=== PATIENT | female | born 1935 | race Caucasian/White ===

== ENCOUNTER 2019-07-17 05:17 | Observation (INO) | payer MEDICARE, MEDICAID, SELFPAY ==
[2019-07-17] VITALS (19 sets, daily range): BP systolic 110–170; BP diastolic 59–81; PULSE 69–111; RESP 16–23; TEMP 35.9–36.6; O2SAT 94–100; BMI 24.1
--- NOTE | ~2019-07-17 | CT_ITS ---
EXAMINATION: CT thoracic spine wo con DATE: 07/17/2019 06:52 INDICATION: Back pain TECHNIQUE: Computed tomography (CT) of the thoracic spine was performed without intravenous contrast. Automated exposure control and iterative reconstruction technique were employed. The dose-length pro duct was 360.46 mGy-cm. COMPARISON: Thoracic spine radiographs dated 12/17/[address] dated 12/14/2006 FINDINGS: Partially visualized dextroscoliosis centered at the thoracolumbar junction with severe left-sided di sc height loss and degenerative endplate remodeling at T12-L1 and L1-L2. Vertebral body heights are n ormal. No acute fractures. Lucent hemangiomas with thickened irregular oriented trabecular at T3, T7 and T9. Moderate to severe thoracic spondylosis with mild to moderate disc height loss between C7-T1 and T11-T12 and multilevel bilateral severe facet osteoarthritis. This results in mild to moderate ne ural foraminal stenosis bilaterally at multiple levels with upper thoracic predominance. Posterior di sc osteophyte at T10-T11 and T12-L1 along with hypertrophic change at the facet joints results in mil d central canal stenosis at these levels. Lesser minimal central canal stenosis at a few additional l evels in the mid to lower thoracic spine. Additional severe disc height loss at C6-C7. Moderate emphy sema. 1.4 cm nodular opacity with somewhat ill-defined spiculated margins along a band of chronic dis coid atelectasis/scarring at the lingula. A few calcified right hilar and mediastinal lymph nodes john ng with several splenic calcifications, all consistent with old granulomatous disease. No pathologica lly enlarged mediastinal or hilar lymphadenopathy appreciated. Atherosclerotic coronary artery Calcin ation cases. No pericardial or pleural effusion. Thoracic aorta is normal in caliber. 1.5 cm cyst at the upper pole of the left kidney. Chronic 1.9 x 3.0 cm low-attenuation left adrenal adenoma. IMPRESSION: 1. Moderate to severe thoracic spondylosis with severe spondylosis at the lower cervical and upper bradley mbar spine. No acute osseous abnormality. 2. Moderate emphysema with indeterminate 1.4 cm spiculated nodule in the lingula along a band of disc oid atelectasis. Differential would include pneumonia, atelectasis or malignancy. Correlate clinicall y and recommend short interval follow-up chest CT and obtaining any more recent outside cross-section al imaging. Reviewed, dictated and finalized at location A. IMPRESSION: 1. Moderate to severe thoracic spondylosis with severe spondylosis at the lower cervical and upper lumbar spine. No acute osseous abnormality. 2. Moderate emphysema with indeterminate 1.4 cm spiculated nodule in the lingul a along a band of discoid atelectasis. Differential would include pneumonia, at electasis or malignancy. Correlate clinically and recommend short interval foll ow-up chest CT and obtaining any more recent outside cross-sectional imaging.
--- NOTE | ~2019-07-17 | XR_ITS ---
EXAMINATION: XR chest 2V DATE: 07/17/2019 06:58 INDICATION: Chest pain. Difficulty breathing. TECHNIQUE: frontal and lateral views of the chest were obtained. COMPARISON: Chest radiograph dated 08/12/2018 FINDINGS: Emphysema with mild hyperexpansion of lungs, increased lucency and architectural distortion in the up per lung zones. Subtle nodular opacity left midlung zone which appears new since the most recent radi ograph concerning for pneumonia. Chronic linear discoid atelectasis/scarring in the left mid to lower lung zone. Additional linear discoid atelectasis at the medial right lung base. No pleural effusion or pneumothorax. Cardiomediastinal silhouette is within normal limits for AP technique. Thoracolumbar dextrorotoscoliosis with severe spondylosis. Moderate osteoarthritis at the bilateral shoulders. IMPRESSION: 1. New focal airspace opacity in the left midlung zone concerning for pneumonia. This has a somewhat nodular appearance on the immediately prior CT of the thoracic spine and would recommend short interv al follow-up chest CT as clinically indicated. 2. Emphysema with scattered mild linear discoid atelectasis/scarring. Reviewed, dictated and finalized at location A. IMPRESSION: 1. New focal airspace opacity in the left midlung zone concerning for pneumonia . This has a somewhat nodular appearance on the immediately prior CT of the tho racic spine and would recommend short interval follow-up chest CT as clinically indicated. 2. Emphysema with scattered mild linear discoid atelectasis/scarring.
--- NOTE | 2019-07-17 05:44 | ECG_ITS ---
Measurements Intervals [place] Rate: 74 P: 67 ME: 319 QRS: -3 QRSD: 151 T: 33 QT: 400 QTc: 445 Interpretive Statements SINUS RHYTHM WITH FIRST DEGREE AV BLOCK RIGHT BUNDLE BRANCH BLOCK BASELINE ARTIFACT- I, II, III, AVR, AVL, AVF, V1-V5 ABNORMAL ECG Electronically Signed On 07-17-2019 7:23:54 CDT by Mik Cardona D.O.
--- NOTE | 2019-07-17 06:01 | ED.BACK ---
HPI - Back Pain/Injury General Chief Complaint: Back Pain/Injury Stated Complaint: BACK PAIN Time Seen by Provider: 07/17/19 05:59 Source: patient Mode of arrival: EMS Limitations: no limitations History of Present Illness HPI Narrative: Patient is an 83-year-old female who presents for evaluation of upper back pain and chest pressure. Patient reports a one-week history of intermittent chest pressure, pain with breathing, upper back pain over the past week. Pain is currently rated at a 4. At times it occurs at rest, other times with movement. No recent falls or injury. No recent heavy lifting. No fever, she does report a dry cough. She reports generalized abdominal pain, no severe pain, no vomiting. Pt notices dyspnea with exertion only. SHe states she has felt more weak and fatigued than normal. Her stool has been brown per patient. Patient is mobile, she lives at home by herself, states she has been doing most activities alone as her home health nurses have been injured and have been unable to check on her or help her as much. She reports quite a bit of difficulty sustained in completing her ADLs. Patient follows with cardiology, sees Dr. Lancaster, has had a telemedicine appointment with him last week. She denies leg swelling, calf pain. Pt also follows with Dr. 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 Related Data Home Medications Medication Instructions Recorded Confirmed ranitidine HCl 150 mg tablet 150 mg PO BID tablet 03/24/19 07/17/19 aspirin 81 mg tablet,delayed 81 mg PO DAILY tablet 05/02/19 07/17/19 release lisinopril 10 mg tablet 5 mg PO DAILY tablet 05/02/19 07/17/19 Allergies Allergy/AdvReac Type Severity Reaction Status Date / Time atenolol Allergy Severe BLURRED Verified 07/17/19 05:33 VISION fenofibrate Allergy Severe GERNERAL Verified 07/17/19 05:33 MUSCLE PAIN methylprednisolone Allergy Severe ANXIETY Verified 07/17/19 05:33 BLURRED VISION naproxen Allergy Severe CHEST PAINS Verified 07/17/19 05:33 Quinolones Allergy Severe BLURRED Verified 07/17/19 05:33 VISION cefuroxime Allergy Mild Nausea and Verified 07/17/19 05:33 Vomiting clarithromycin Allergy Mild Nausea Verified 07/17/19 05:33 iodine Allergy Mild Nausea,WEAK Verified 07/17/19 05:33 NESS celecoxib Allergy Unknown ABD. Verified 07/17/19 05:33 PAIN/DIZZINESS/NAUSEA erythromycin base Allergy Unknown UNKNOWN Verified 07/17/19 05:33 hydrocodone Allergy Unknown CONFUSION/A Verified 07/17/19 05:33 NXIOUS NSAIDS (Non-Steroidal Allergy Unknown FEELS LIKE Verified 07/17/19 05:33 Anti-Inflamma LOSS OF LIFE oxycodone Allergy Unknown REALLY Verified 07/17/19 05:33 PUTS ME IN OUTER SPACE simvastatin Allergy Unknown CONFUSION Verified 07/17/19 05:33 FROM STATINS AZELASTINE HCL Allergy Mild BLURRED Uncoded 07/17/19 05:33 VISION FEXOFENADINE HCL Allergy Mild BLURRED Uncoded 07/17/19 05:33 VISION MEDROXYPROGESTERONE ACETATE Allergy Mild Unknown Uncoded 07/17/19 05:33 PSEUDOEPHEDRINE HCL Allergy Mild BLURRED Uncoded 07/17/19 05:33 VISION Contrast Media Allergy Unknown COULD Uncoded 07/17/19 05:33 TAST FOR 3 DAYS ; CONFUSION MOXIFLOXACIN HCL Allergy Unknown UNKNOWN Uncoded 07/17/19 05:33 Review of Systems Review of Systems: Narrative: CONSTITUTIONAL: Denies fever, chills, or sweats. EYES: Denies visual changes, redness, or discharge. ENT: Denies rhinorrhea, congestion, sore throat, or otalgia. CARDIOVASCULAR: Reports chest pressure, denies palpitations or edema RESPIRATORY: Reports dry cough, reports shortness of breath with exertion GASTROINTESTINAL: Reports generalized abdominal pain, denies flank pain, denies nausea, vomiting or diarrhea GENITOURINARY: Denies dysuria or hematuria. SKIN: Denies rash or itching. MUSCULOSKELETAL: Denies back pain, joint pain, or myalgia. NEUROLOGIC: Denies headache, numbness, re
[2019-07-17] MEDS: ACETAMINOPHEN 500 MG TABLET 1000 MG PO (06:25)
[2019-07-17 06:39] LABS: Basophils Percent Auto 0.5 % (0.2-1.2); Eosinophils Absolute Auto 0.2 K/mm3 (0-0.3); Hematocrit 25.2 % (37.0-47.0); Hemoglobin 7.6 g/dL (12.0-15.0); Immature Granulocyte Absolute 0.01 K/mm3 (0.00-0.031); Immature Granulocyte Percent A 0.3 % (0-0.5); Lymphocytes Absolute Auto 0.65 K/mm3 (0.9-3.2); Lymphocytes Percent Auto 17.2 % (18.3-44.2); Mean Corpuscular HGB Conc 30.2 g/dl (32-36); Mean Corpuscular Hemoglobin 28.4 pg (26-34); Mean Platelet Volume 9.9 fl (7.4-10.4); Monocytes Absolute Auto 0.5 K/mm3 (0.1-0.6); Monocytes Percent Auto 14.3 % (2.6-8.5); Neutrophils Absolute Auto 2.4 K/mm3 (1.3-6.7); Neutrophils Percent Auto 62.7 % (45.5-73.1); Platelet Count Result 216 k/mm3 (150-375); Red Blood Count 2.68 M/mm3 (4.2-5.4); Red Cell Distribution Width 14.7 % (11.5-14.5); White Blood Count 3.8 K/mm3 (4.5-10.0)
[2019-07-17 06:46] LABS: Prothrombin Time 12.5 Seconds (11.1-14.7)
[2019-07-17 06:47] LABS: Partial Thromboplastin Time 34.9 SECONDS (22.3-36.8)
[2019-07-17 06:50] LABS: CRP < 0.5 mg/dL (<1.0)
[2019-07-17 06:56] LABS: D Dimer 0.32 ug/mL (<0.48)
[2019-07-17 06:59] LABS: Troponin I < 0.012 ng/mL (0.000-0.034)
--- NOTE | 2019-07-17 07:22 | PC.NURSE ---
Lab called and notified of add on for CMP. State they will run.
[2019-07-17 07:31] LABS: Alanine Aminotransferase 11 U/L (4-35); Albumin Level 3.4 g/dL (3.5-5.1); Alkaline Phosphatase 43 U/L (38-126); Aspartate Amino Transferase 20 U/L (14-36); Bilirubin,Total < 0.1 mg/dL (0.2-1.3); Blood Urea Nitrogen 15 mg/dL (7-17); Calcium 8.6 mg/dL (8.4-10.2); Carbon Dioxide 28 mmol/L (22-30); Chloride 104 mmol/L (98-107); Estimated Glomerular Filt Rate > 60; Glucose 92 mg/dL (65-105); Potassium 4.1 mmol/L (3.4-5.0); Sodium 135 mmol/L (137-145)
[2019-07-17] MEDS: SODIUM CHLORIDE 0.9% IV 250 ML 30 ML IV CONT (09:55)
--- NOTE | 2019-07-17 10:23 | PC.NURSE ---
patient up to commode prior to going to room.
[2019-07-17 12:14] LABS: Troponin I < 0.012 ng/mL (0.000-0.034)
--- NOTE | 2019-07-17 12:23 | WPDGICN ---
Assessment and Plan Assessment and plan (1) Symptomatic anemia: Code(s): D64.9 - Anemia, unspecified Status: Acute Assessment and Plan: Patient appears to be symptomatic from anemia. She is reported have a decline of 2-3 g of hemoglobin since last blood count in April. Current hemoglobin is very similar to evaluation last year. One year ago GI evaluation revealed angiodysplasias of the colon. Likely this is the etiology for her recurrent anemia. Plan is for transfusion to minimize her symptomatology. Hemoglobin will be monitored. Colonoscopy will be performed in the morning after preparation today an EGD may also be required if no significant findings by colon exam. We will follow with you during this hospital stay . (2) Acute thoracic back pain: Qualifiers: Back pain laterality: bilateral Qualified Code(s): M54.6 - Pain in thoracic spine Code(s): M54.6 - Pain in thoracic spine Status: Acute (3) Hypertension: Qualifiers: Hypertension type: essential hypertension Qualified Code(s): I10 - Essential (primary) hypertension Code(s): I10 - Essential (primary) hypertension Status: Acute (4) Diastolic dysfunction: Code(s): I51.89 - Other ill-defined heart diseases Status: Acute (5) COPD (chronic obstructive pulmonary disease): Code(s): J44.9 - Chronic obstructive pulmonary disease, unspecified Status: Acute GI Consult Note Consult date/time: 07/17/19 12:23 HPI: Mercy Dobbs is a 83 year old female seen in evaluation at the request of the emergency room. Patient reports a 2 week history of malaise. Progressive weakness, and back pain. She presented emergency room was found to have a decline in her hemoglobin. Primary care office reports hemoglobin of 11 in April of this year now with a hemoglobin is 7-1/2. Patient denies any obvious signs of GI blood loss. In the recent past 2019 underwent extensive GI evaluation for anemia was found to have he angiodysplasias of the colon. She recently has been followed by Cardiology apparently for congestive heart failure. She receives diuretics. She denies any blood thinners. She also has been treated for COPD, hypothyroidism, hypertension, he has a history of a mild CVA in the past. She denies any obvious signs of GI blood loss. She denies abdominal pain. Review of Systems Review of Systems: All systems reviewed & are unremarkable except as noted in HPI and below PMFSH Past Medical History Medical History Anemia Anxiety Cataract COPD (chronic obstructive pulmonary disease) CVA (cerebral vascular accident) Diastolic dysfunction HOCM (hypertrophic obstructive cardiomyopathy) Hypertension Hypothyroidism Mild acid reflux Mitral regurgitation Osteoarthritis Osteoporosis Parathyroid disorder Tobacco abuse Surgical History Surgical History H/O dilation and curettage 2008 H/O removal of cyst Under left armpit History of knee joint replacement Left 2010 Family History Family History Sibling Family history of coronary artery disease Father Respiratory failure Mother Breast cancer Son Myositis ossificans progressiva Other Family history of arthritis Family history of cardiovascular disease Family history of chronic obstructive pulmonary disease Hypertension Social History Social History Smoking packs per day: 0.5 Smoking cigarettes per day: 10.0 Years smoked: 60 Smoking pack-years: 30.00 Smoking status: Light tobacco smoker Tobacco type: cigarettes Alcohol intake: current Drinks per week: 5 Substance use: never Substance use type: does not use Gender identity (if verbalized by the patient): Female Spiritual care concerns: No
--- NOTE | 2019-07-17 13:56 | ADMGEN ---
This patient, Mercy Dobbs, was admitted to IMU Room 213-01 @ 1040. Patient oriented to hospital policies and general routines including ID bracelet, bed and alarms, visiting hours, pain management, procedures, bathroom and other care routines, personal items, smoking policy, room service/diet, and visiting hours. PRBC infusing left hand - IV site WNL..Valuables list has been completed. Information on how to activate the Rapid Response Team has been discussed. Patient encouraged to report perceived risks to care and to ask questions if they do not understand what they are told or what they should do.
[2019-07-17 14:59] LABS: Hematocrit 28.5 % (37.0-47.0); Hemoglobin 8.7 g/dL (12.0-15.0)
[2019-07-17] MEDS: PEG (High)/E-LYTE SOLN 4,000 ML BTL 4000 ML PO (17:45)
--- NOTE | 2019-07-17 19:09 | PM.IMHP ---
H&P: HPI History of Present Illness Chief complaint: weaness,symptomatic anemia Narrative: Mercy Dobbs is a 83 year old female who lives alone at home and recently doing all ADLs by herself is she has no help she presented emergency department with a complaint tired fatigue for several days there is also chest pain however her tropes are negative and she was seen by her trench pipe layer on telemedicine last week, also complains abdominal discomfort, patient has a history of angio dysplasia was found last year during colonoscopy she is found to have anemia with low hemoglobin of 6.8 which is decreased 2-3 point from last check, patient will receive 1 unit of pack RBC and will continue to monitor H&H, patient is seen by GI and recommending colonoscopy to further evaluate which is scheduled for tomorrow, she does admit having dark stools but denies any brittany bleeding, see denies any abdominal pain nausea or vomiting fever or chills Review of Systems Review of Systems: All systems reviewed & are unremarkable except as noted in HPI and below PMFSH Past Medical History Medical History Anemia Anxiety Cataract COPD (chronic obstructive pulmonary disease) CVA (cerebral vascular accident) Diastolic dysfunction HOCM (hypertrophic obstructive cardiomyopathy) Hypertension Hypothyroidism Mild acid reflux Mitral regurgitation Osteoarthritis Osteoporosis Parathyroid disorder Tobacco abuse Surgical History Surgical History H/O dilation and curettage 2008 H/O removal of cyst Under left armpit History of knee joint replacement Left 2009 Family History Family History Sibling Family history of coronary artery disease Father Respiratory failure Mother Breast cancer Son Myositis ossificans progressiva Other Family history of arthritis Family history of cardiovascular disease Family history of chronic obstructive pulmonary disease Hypertension Social History Social History Smoking packs per day: 0.5 Smoking cigarettes per day: 10.0 Years smoked: 60 Smoking pack-years: 30.00 Smoking status: Light tobacco smoker Tobacco type: cigarettes Alcohol intake: current Drinks per week: 5 Substance use: never Substance use type: does not use Gender identity (if verbalized by the patient): Female Spiritual care concerns: No Agree to blood products: Yes Meds Home Medications and Allergies Home Medications Medication Instructions Recorded Confirmed Type ranitidine HCl 150 mg tablet 150 mg PO BID tablet 03/24/19 07/17/19 History ferrous sulfate 325 mg (65 mg 325 mg PO DAILY #30 tablet 03/28/19 07/17/19 Rx iron) tablet aspirin 81 mg tablet,delayed 81 mg PO DAILY tablet 05/02/19 07/17/19 History release lisinopril 10 mg tablet 5 mg PO DAILY tablet 05/02/19 07/17/19 History montelukast 10 mg tablet 10 mg PO DAILY #30 tablet 06/06/19 07/17/19 Rx fluticasone propionate 50 1 spray NASAL DAILY #18.2 ml 06/27/19 07/17/19 Rx mcg/actuation nasal spray,suspension cyanocobalamin (vitamin B-12) 1,000 mcg PO DAILY #90 tablet 07/04/19 07/17/19 Rx 1,000 mcg tablet Allergies Allergy/AdvReac Type Severity Reaction Status Date / Time atenolol Allergy Severe BLURRED Verified 07/17/19 05:33 VISION fenofibrate Allergy Severe GERNERAL Verified 07/17/19 05:33 MUSCLE PAIN methylprednisolone Allergy Severe ANXIETY Verified 07/17/19 05:33 BLURRED VISION naproxen Allergy Severe CHEST PAINS Verified 07/17/19 05:33 Quinolones Allergy Severe BLURRED Verified 07/17/19 05:33 VISION cefuroxime Allergy Mild Nausea and Verified 07/17/19 05:33 Vomiting clarithromycin Allergy Mild Nausea Verified 07/17/19 05:33 iodine Allergy Mild Nausea,WEAK Verified 07/17/19 05:33 NESS
[2019-07-18] VITALS (14 sets, daily range): BP systolic 97–162; BP diastolic 49–75; PULSE 67–84; RESP 16–22; TEMP 36.1–37; O2SAT 97–100
[2019-07-18 05:20] LABS: Basophils Absolute Auto 0.1 K/mm3 (0.0-0.1); Basophils Percent Auto 1.2 % (0.2-1.2); Eosinophils Absolute Auto 0.2 K/mm3 (0-0.3); Eosinophils Percent Auto 4.7 % (0-4.4); Hematocrit 30.2 % (37.0-47.0); Hemoglobin 9.1 g/dL (12.0-15.0); Immature Granulocyte Absolute 0.02 K/mm3 (0.00-0.031); Immature Granulocyte Percent A 0.5 % (0-0.5); Lymphocytes Absolute Auto 0.66 K/mm3 (0.9-3.2); Lymphocytes Percent Auto 16.4 % (18.3-44.2); Mean Corpuscular HGB Conc 30.1 g/dl (32-36); Mean Corpuscular Hemoglobin 28.6 pg (26-34); Mean Platelet Volume 10.6 fl (7.4-10.4); Monocytes Absolute Auto 0.5 K/mm3 (0.1-0.6); Monocytes Percent Auto 11.7 % (2.6-8.5); Neutrophils Absolute Auto 2.6 K/mm3 (1.3-6.7); Neutrophils Percent Auto 65.5 % (45.5-73.1); Platelet Count Result 219 k/mm3 (150-375); Red Blood Count 3.18 M/mm3 (4.2-5.4)
[2019-07-18] MEDS: LACTATED RINGERS 1,000 ML 150 ML IV CONT (07:23)
--- NOTE | 2019-07-18 07:48 | PC.NURSE ---
0730-To GI lab for procedure via stretcher accompanied by GI nurse
--- NOTE | 2019-07-18 08:49 | WPDANESEPPF ---
Anes - Initial Pre Proc Eval Procedure: Operation Date: 07/18/19 09:00 Proposed Procedures p Colonoscopy, Possible Esophagogastroduodenoscopy - [place] Ramsey MD Date/Time: 07/18/19 08:49 Surgeon: Lamberto Ramon MD Pre Op Diagnosis: weaness,symptomatic anemia Patient Data Age: 83 Gender: F Height: 5 ft 1 in Weight: 57 kg Last Vital Signs Temp 37.0 C 07/18/19 07:18 Pulse 71 07/18/19 07:18 Resp 20 07/18/19 07:18 BP 162/63 H 07/18/19 07:18 Pulse Ox 98 07/18/19 07:18 Allergies Allergy/AdvReac Type Severity Reaction Status Date / Time atenolol Allergy Severe BLURRED Verified 07/17/19 05:33 VISION fenofibrate Allergy Severe GERNERAL Verified 07/17/19 05:33 MUSCLE PAIN methylprednisolone Allergy Severe ANXIETY Verified 07/17/19 05:33 BLURRED VISION naproxen Allergy Severe CHEST PAINS Verified 07/17/19 05:33 Quinolones Allergy Severe BLURRED Verified 07/17/19 05:33 VISION cefuroxime Allergy Mild Nausea and Verified 07/17/19 05:33 Vomiting clarithromycin Allergy Mild Nausea Verified 07/17/19 05:33 iodine Allergy Mild Nausea,WEAK Verified 07/17/19 05:33 NESS celecoxib Allergy Unknown ABD. Verified 07/17/19 05:33 PAIN/DIZZINESS/NAUSEA erythromycin base Allergy Unknown UNKNOWN Verified 07/17/19 05:33 hydrocodone Allergy Unknown CONFUSION/A Verified 07/17/19 05:33 NXIOUS NSAIDS (Non-Steroidal Allergy Unknown FEELS LIKE Verified 07/17/19 05:33 Anti-Inflamma LOSS OF LIFE oxycodone Allergy Unknown REALLY Verified 07/17/19 05:33 PUTS ME IN OUTER SPACE simvastatin Allergy Unknown CONFUSION Verified 07/17/19 05:33 FROM STATINS AZELASTINE HCL Allergy Mild BLURRED Uncoded 07/17/19 05:33 VISION FEXOFENADINE HCL Allergy Mild BLURRED Uncoded 07/17/19 05:33 VISION MEDROXYPROGESTERONE ACETATE Allergy Mild Unknown Uncoded 07/17/19 05:33 PSEUDOEPHEDRINE HCL Allergy Mild BLURRED Uncoded 07/17/19 05:33 VISION Contrast Media Allergy Unknown COULD Uncoded 07/17/19 05:33 TAST FOR 3 DAYS ; CONFUSION MOXIFLOXACIN HCL Allergy Unknown UNKNOWN Uncoded 07/17/19 05:33 Home Medications Medication Instructions Recorded Confirmed Type ranitidine HCl 150 mg tablet 150 mg PO BID tablet 03/24/19 07/17/19 History ferrous sulfate 325 mg (65 mg 325 mg PO DAILY #30 tablet 03/28/19 07/17/19 Rx iron) tablet aspirin 81 mg tablet,delayed 81 mg PO DAILY tablet 05/02/19 07/17/19 History release lisinopril 10 mg tablet 5 mg PO DAILY tablet 05/02/19 07/17/19 History montelukast 10 mg tablet 10 mg PO DAILY #30 tablet 06/06/19 07/17/19 Rx fluticasone propionate 50 1 spray NASAL DAILY #18.2 ml 06/27/19 07/17/19 Rx mcg/actuation nasal spray,suspension cyanocobalamin (vitamin B-12) 1,000 mcg PO DAILY #90 tablet 07/04/19 07/17/19 Rx 1,000 mcg tablet Laboratory Tests 07/17/19 07/17/19 07/17/19 07:50 11:46 14:53 WBC RBC Hgb 8.7 g/dL L g/dL (12.0-15.0) Hct 28.5 % L % (37.0-47.0) MCV MCH MCHC RDW Plt Count MPV Immature Gran % (Auto) Neut % (Auto) Lymph % (Auto) [place] % (Auto) Eos % (Auto) Baso % (Auto) Lymph # (Auto) [place] # (Auto) Eos # (Auto) Baso # (Auto) Abs Immat Gran (auto) Absolute Neuts (auto) Absolute Nucleated RBC Nucleated RBC % Troponin I < 0.012 ng/mL ng/mL (0.000-0.034) Blood Type O Positive Antibody Screen Negative Crossmatch See Detail 07/18/19 04:35 WBC 4.0 K/mm3 L K/mm3 (4.5-10.0) RBC 3.18 M/mm3 L M/mm3 (4.2-5.4) Hgb 9.1 g/dL L g/dL (12.0-15.0) Hct 30.2 % L % (37.0-47.0) MCV 95.0 fl fl (80-100) MCH 28.6 pg
[2019-07-18] MEDS: SIMETHICONE ORAL SUSPENSION 20 MG/0.3 ML 30 ML BOTTLE 0.6 ML PO (09:46)
--- NOTE | 2019-07-19 18:35 | PM.DS ---
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 on telemedicine last week, also complains abdominal discomfort, patient has a history of angio dysplasia was found last year during colonoscopy she is found to have anemia with low hemoglobin of 6.8 which is decreased 2-3 point from last check, patient received 1 unit of pack RBC and hgb up to 9.1 repeat colonoscope by GI failed to reveal any source of blood loss and EGD was also negative (2) Diastolic dysfunction: Code(s): I51.89 - Other ill-defined heart diseases Status: Acute Assessment and Plan: Patient clinically stable he appears euvolemic Continue low-dose ANTHONY-inhibitor (3) Hypertension: Qualifiers: Hypertension type: essential hypertension Qualified Code(s): I10 - Essential (primary) hypertension Code(s): I10 - Essential (primary) hypertension Status: Acute Assessment and Plan: Will continue home regime and as above low-dose ANTHONY-inhibitor DS: Summary Hospital Course Hospital Course: 83-year-old white female with history of diastolic heart failure and hypertension admitted with weakness found to be anemic with hemoglobin 7.6. History of angiodysplasia. Repeat EGD and colonoscopy failed to reveal any bleeding sites. Was given 1 unit of packed cells and hemoglobin was 9.1 the day of discharge. Will follow with primary care and has CBC repeated within 2 weeks her other home medication will remain the same. Assessed by PT and ambulating well by the time of discharge Time Spent with Patient Time attestation: Total time spent providing and/or coordinating discharge services: 35 minutes Exam Narrative: Exam Narrative: Condition on discharge Blood pressure 136/56 pulse is 70 saturating 95% on room air afebrile Lungs clear CV regular rate rhythm Abdomen is soft nontender Extremities without edema distal pulses She is up ambulating with physical therapy and able to be discharged home DS: Data Data Completed and Pending Completed studies during hospitalization: Pending at discharge 07/18/19 10:00 Surgical [PTH] Routine Discharge Plan Discharge Attending physician on discharge: Syd Mendez Consulting providers: [place] Ramsey Discharging Clinician: Syd Mendez Patient Disposition: Home, Self-Care Activity: as tolerated Diet: regular Patient Instructions: Antibiotic Form Stand Alone Forms: General Discharge Information Follow-up/Referrals: Amish Monsivais, [Primary Care Provider] - 2 Weeks Discharge Medications: Continued ranitidine HCl [Zantac] 150 mg tablet 150 mg PO BID RF: 0 lisinopril 10 mg tablet 5 mg PO DAILY RF: 0 ferrous sulfate 325 mg (65 mg iron) tablet 325 mg PO DAILY Qty: 30 RF: 2 montelukast 10 mg tablet 10 mg PO DAILY Qty: 30 RF: 2 fluticasone propionate 50 mcg/actuation spray,suspension 1 spray NASAL DAILY Qty: 18.2 RF: 1 cyanocobalamin (vitamin B-12) [Vitamin B-12] 1,000 mcg tablet 1,000 mcg PO DAILY Qty: 90 RF: 0 Discontinued aspirin [Adult Aspirin Regimen] 81 mg tablet,delayed release (DR/EC) 81 mg PO DAILY RF: 0 Other Ambulatory Orders: Complete Blood Count with Diff (Routine) Timeframe: [id number] Location: Determined by Patient Ordered By: Syd Mendez Date of admission: 07/17/19 08:26 Primary Care Provider: Amish Monsivais Admitting Provider: Lamberto Ramon Discharge Date/Time: 07/18/19 16:26 Attending physician on admis
== END 2019-07-18 16:26 | disposition home or self-care (01) ==
LOC: ANHED 08:36 → ANHIMU 10:03
PROVIDERS: Internal Medicine Gastroenterology; Admitting Provider Family Medicine; Emergency Provider Emergency Medicine; PCP Internal Medicine; Visit Provider Internal Medicine
PROC: 0DJ08ZZ Inspection of Upper Intestinal Tract, Via Natural or Artificial Opening Endoscopic (ICD-10-PCS; CPT 43235; principal; 2019-07-18 09:00)
DX: D64.9 Anemia, unspecified (principal); D12.5 Benign neoplasm of sigmoid colon; K64.8 Other hemorrhoids; I11.0 Hypertensive heart disease with heart failure; I50.32 Chronic diastolic (congestive) heart failure; M54.6 Pain in thoracic spine; F17.210 Nicotine dependence, cigarettes, uncomplicated; J44.9 Chronic obstructive pulmonary disease, unspecified; E03.9 Hypothyroidism, unspecified; I42.1 Obstructive hypertrophic cardiomyopathy; Z79.82 Long term (current) use of aspirin; Z79.899 Other long term (current) drug therapy; Z86.73 Personal history of transient ischemic attack (TIA), and cerebral infarction without residual deficits; Z96.652 Presence of left artificial knee joint
CPT/HCPCS: 45385; 43235; 36415; 36430; 71046; 72128; 80053; 84484; 85014; 85018; 85025; 85380; 85610; 85730; 86140; 86850; 86900; 86901; 86920; 88305; 93005; 96360; 96361; 97161; 97165; 99285; A9270; G0378; J2704; J7050; J7120; P9016

== ENCOUNTER 2019-12-27 16:23 | Outpatient (CLI) | payer MEDICARE, MEDICAID, SELFPAY ==
--- NOTE | ~2019-12-27 | CT_ITS ---
EXAMINATION:CT chest wo con DATE: 12/27/2019 17:24 INDICATION: Pulmonary nodule. TECHNIQUE: Computed tomography (CT) of the chest was performed without intravenous contrast. Automate d exposure control and iterative reconstruction technique were employed. The dose-length product (DLP ) was 148.71 mGy-cm. COMPARISON: Chest CT 12/14/2006, thoracic spine CT 07/17/2019, CT abdomen and pelvis 09/15/09 FINDINGS: There is moderate emphysema. There is mild atelectasis bilaterally. A calcified right lung nodule and calcified right hilar and subcarinal lymph nodes are consistent with old granulomatous dis ease. In the left upper lobe, there is a 2.2 cm nodule, new from 12/14/2006. The nodule was only parti ally included on 07/17/2019, and it is not clear if there has been a change in size. There are a few o ther scattered nodules in the lungs measuring up to 5 mm in right lower middle lobe, some of which ar e new from 12/14/2006. No pleural effusion. The heart size is normal. There are coronary artery calcif ications. No pericardial effusion. There are changes of right hemithyroidectomy. There is a small sli ding hiatal hernia. There is a gallstone in the gallbladder. Calcifications in the spleen are consist ent with old granulomatous disease. There is dextroscoliosis and severe spondylosis of thoracolumbar spine. IMPRESSION: 1. 2.2 cm nodule in left lung upper lobe suspicious for primary bronchogenic carcinoma. Consider bron choscopy. 2. Scattered pulmonary nodules measuring up to 5 mm, some of which are new from 12/14/2006, probably b enign. 3. Moderate emphysema. Reviewed, dictated and finalized at location A. IMPRESSION: 1. 2.2 cm nodule in left lung upper lobe suspicious for primary bronchogenic ca rcinoma. Consider bronchoscopy. 2. Scattered pulmonary nodules measuring up to 5 mm, some of which are new from 12/14/2006, probably benign. 3. Moderate emphysema.
== END 2019-12-27 16:24 | disposition home or self-care (01) ==
PROVIDERS: PCP Internal Medicine; Visit Provider Internal Medicine
DX: R91.1 Solitary pulmonary nodule (principal); J44.9 Chronic obstructive pulmonary disease, unspecified
CPT/HCPCS: 71250

== ENCOUNTER 2020-01-23 07:15 | Outpatient (CLI) | payer MEDICARE, MEDICAID, SELFPAY ==
--- NOTE | ~2020-01-23 | PE_ITS ---
EXAMINATION: PET skull to mid thigh DATE: 01/23/2020 09:06 INDICATION: Solitary pulmonary nodule TECHNIQUE: Blood glucose level was 98 mg/dL. 10.827 mCi of 18-fluorodeoxyglucose (18-FDG) was adminis tered i.v. Low dose computed tomography (CT) images were acquired from the base of the brain to the p roximal thighs for attenuation correction and anatomic localization. Positron emission tomography (PE T) images were acquired in the same distribution beginning 53 minutes after injection. Images includi ng fused PET/CT images were reconstructed in axial, coronal, and sagittal planes. Automated exposure control technique was employed. The dose-length product was 428.50mGy-cm. COMPARISON: CT chest dated 12/27/[address] abdomen and pelvis dated 09/15/2009 FINDINGS: Head/neck: There is symmetric increased activity in the oral cavity, palatine tonsils, parotid glands, submandi bular glands, laryngeal muscles and ocular muscles without CT correlate, likely physiologic. Status p ost right thyroidectomy with likely benign 9 mm calcified nodule in the left thyroid. No pathological ly enlarged cervical lymphadenopathy or suspicious foci of increased FDG uptake in the visualized hea d or neck. Atherosclerotic calcification at the bilateral carotid bulbs. Chest: Moderate emphysema. 1.5 x 1.9 cm FDG avid nodule concerning for malignancy located along a band of at electasis/scarring at the junction of the left upper lobe and lingula with maximal SUV of 4.0. Couple additional linear bands of mild discoid atelectasis at the lingula and right middle lobe. No pleural effusion. Cardiomegaly. Atherosclerotic coronary artery calcification. No pericardial effusion. Aort ic valve calcification. Small region of mild increased uptake with maximal SUV of 3.2 at the left hil um which appears slightly greater than the blood pool in the aorta and hilar vessels which could repr esent a metastatic lymph node unable to be distinguished from the hilar vasculature on the noncontras t CT images. Abdomen/pelvis/proximal thighs: Physiologic renal accumulation and excretion of FDG activity in the kidneys, bladder and along portio ns of ureters. Normal degree and heterogenous pattern of increased uptake throughout the liver withou t radiologic correlate or dominant FDG avid lesion. Several calcified gallstones within the otherwise normal gallbladder. The pancreas, spleen and right adrenal gland are normal. Approximately 3 cm low- attenuation left adrenal nodule without associated FDG uptake without significant interval change sin ce the prior study consistent with an adenoma. There is moderate uptake at the distal rectum where th ere is mild circumferential wall thickening. Otherwise mild uptake scattered throughout the bowels wi thout radiologic correlate, also likely physiologic. Again seen are several small calcified uterine f ibroids. There is calcified atherosclerosis of the aorta and many of the other arteries. No other ab normal foci of increased FDG uptake or pathologically enlarged lymphadenopathy in the abdomen, pelvis or proximal thighs. Musculoskeletal: Moderate thoracolumbar dextroscoliosis with compensatory more cephalad and caudal levoscoliosis. Cristina re lumbar and lower cervical spondylosis and moderate intervening thoracic spondylosis. L5 spondyloly sis with bilateral pars intra-articular is defects and grade 1 anterolisthesis on S1. Diffuse synovia l uptake at the bilateral glenohumeral joints with severe osteoarthritis on the right and mild on the left. There is also mild left and moderate right hip osteoarthritis. Increased FDG uptake at the jaime ateral greater trochanters consistent with trochanteric bursitis. No suspicious lytic, blastic or FDG avid bone lesions. IMPRESSION: 1. Mild to moderate increased FDG uptake in a 1.5 x 1.9 cm spiculated nodule at the junction of the l eft upper lobe and lingula which is concerning for
[2020-01-23 07:46] LABS: Glucose Point of Care 98 (65-105)
== END 2020-01-23 07:16 | disposition home or self-care (01) ==
PROVIDERS: PCP Internal Medicine; Visit Provider Internal Medicine
DX: R91.1 Solitary pulmonary nodule (principal)
CPT/HCPCS: 78815; A9552

== ENCOUNTER 2020-04-12 08:53 | Outpatient (CLI) | payer MEDICARE, MEDICAID, SELFPAY ==
[2020-04-12 09:07] LABS: Basophils Absolute Auto 0.1 K/mm3 (0.0-0.1); Basophils Percent Auto 1.3 % (0.2-1.2); Eosinophils Absolute Auto 0.3 K/mm3 (0-0.3); Eosinophils Percent Auto 7.3 % (0-4.4); Hematocrit 35.4 % (37.0-47.0); Hemoglobin 10.7 g/dL (12.0-15.0); Immature Granulocyte Absolute 0.01 K/mm3 (0.00-0.031); Immature Granulocyte Percent A 0.3 % (0-0.5); Lymphocytes Absolute Auto 0.34 K/mm3 (0.9-3.2); Lymphocytes Percent Auto 8.8 % (18.3-44.2); Mean Corpuscular HGB Conc 30.2 g/dl (32-36); Mean Corpuscular Hemoglobin 27.2 pg (26-34); Mean Corpuscular Volume 90.1 fl (80-100); Mean Platelet Volume 10.3 fl (7.4-10.4); Monocytes Absolute Auto 0.5 K/mm3 (0.1-0.6); Monocytes Percent Auto 13.5 % (2.6-8.5); Neutrophils Absolute Auto 2.7 K/mm3 (1.3-6.7); Neutrophils Percent Auto 68.8 % (45.5-73.1); Platelet Count Result 232 k/mm3 (150-375); Red Blood Count 3.93 M/mm3 (4.2-5.4); Red Cell Distribution Width 13.3 % (11.5-14.5); White Blood Count 3.9 K/mm3 (4.5-10.0)
[2020-04-12 11:17] LABS: Alanine Aminotransferase 10 U/L (4-35); Alkaline Phosphatase 60 U/L (38-126); Anion Gap 4 mmol/L (8-16); Aspartate Amino Transferase 23 U/L (14-36); Bilirubin,Total 0.3 mg/dL (0.2-1.3); Blood Urea Nitrogen 20 mg/dL (7-17); Calcium 9.8 mg/dL (8.4-10.2); Carbon Dioxide 30 mmol/L (22-30); Chloride 104 mmol/L (98-107); Estimated Glomerular Filt Rate > 60; Glucose 70 mg/dL (65-105); Potassium 4.2 mmol/L (3.4-5.0); Sodium 138 mmol/L (137-145)
== END 2020-04-12 08:54 | disposition home or self-care (01) ==
LOC: ANHLAB 08:55
PROVIDERS: PCP Internal Medicine; Visit Provider Internal Medicine Hematology & Oncology
DX: C34.11 Malignant neoplasm of upper lobe, right bronchus or lung (principal)
CPT/HCPCS: 36415; 80053; 85025

== ENCOUNTER 2020-04-19 09:06 | Outpatient (CLI) | payer MEDICARE, MEDICAID, SELFPAY ==
[2020-04-19 12:33] LABS: Iron 36 ug/dL (37-170)
[2020-04-19 12:51] LABS: Percent Iron Saturation 9 % (20-50)
== END 2020-04-19 09:07 | disposition home or self-care (01) ==
LOC: ANHLAB 09:09
PROVIDERS: Family Provider Family Medicine Adolescent Medicine; PCP Internal Medicine; Visit Provider Internal Medicine Hematology & Oncology
DX: D50.9 Iron deficiency anemia, unspecified (principal); D64.9 Anemia, unspecified
CPT/HCPCS: 36415; 82607; 82728; 83540; 83550

== ENCOUNTER 2020-05-28 08:50 | Outpatient (CLI) | payer MEDICARE, MEDICAID, SELFPAY ==
--- NOTE | ~2020-05-28 | CT_ITS ---
EXAMINATION: CT diagnostic chest wo con EXAM DATE: 05/28/2020 09:16 INDICATION: C34.12 - Malignant neoplasm of upper lobe, left bronchus or lung. TECHNIQUE: Spiral CT of the chest without contrast. Axial, coronal and sagittal images were reviewe d. Coronal maximum intensity pixel images of chest reviewed. The dose-length product (DLP) for this examination was 132.43 mGy-cm. The exposure was tailored according to patient size (auto mA exposur e control), and iterative reconstruction (ASIR) was used as additional dose reduction technique. Comp arison is made to prior examination from 01/23/2020. FINDINGS: There is a 3.0 cm mass in the left upper lobe, with interval increase in size from about 2 cm on 01/23/2020. Development of some interlobular septal thickening distally, possible carcinomatos is. Interval development of new left lower lobe small region of nonconfluent airspace disease, interl obular septal thickening measuring about 2 cm. Decrease in size of right middle lobe nodule now measu ring 3 mm versus 5 on prior study. There is moderate emphysema and hyperinflation. There are no pleu ral or pericardial effusions. Tracheobronchial tree is patent. There is no mediastinal, hilar or axillary lymphadenopathy. There is no pneumothorax. Heart normal in size. There is moderate to severe coronary arterial calcification, arterial sclerosis. Upper abdomen is unremarkable. There i s moderate thoracolumbar dextroscoliosis. IMPRESSION: 1. Increase in size of left upper lobe mass, now 3 cm with some associated peripheral interlobular s eptal thickening, possible carcinomatosis. 2. New left lower lobe opacity which could be postinfectious or cancer. 3. Moderate emphysema and hyperinflation. 4. Moderate to severe coronary artery calcifications. Reviewed, dictated and finalized at location A. DER SET UP OPERATOR IMPRESSION: 1. Increase in size of left upper lobe mass, now 3 cm with some associated per ipheral interlobular septal thickening, possible carcinomatosis. 2. New left lower lobe opacity which could be postinfectious or cancer. 3. Moderate emphysema and hyperinflation. 4. Moderate to severe coronary artery calcifications.
== END 2020-05-28 08:51 | disposition home or self-care (01) ==
PROVIDERS: PCP Internal Medicine; Visit Provider Radiology Radiation Oncology
DX: C34.12 Malignant neoplasm of upper lobe, left bronchus or lung (principal); J43.9 Emphysema, unspecified; R91.8 Other nonspecific abnormal finding of lung field; I25.10 Atherosclerotic heart disease of native coronary artery without angina pectoris
CPT/HCPCS: 71250

== ENCOUNTER 2020-06-07 09:04 | Outpatient (CLI) | payer MEDICARE, MEDICAID, SELFPAY ==
[2020-06-07 09:26] LABS: Basophils Percent Auto 0.9 % (0.2-1.2); Eosinophils Absolute Auto 0.3 K/mm3 (0-0.3); Eosinophils Percent Auto 6.2 % (0-4.4); Hematocrit 31.3 % (37.0-47.0); Immature Granulocyte Absolute 0.02 K/mm3 (0.00-0.031); Immature Granulocyte Percent A 0.4 % (0-0.5); Lymphocytes Absolute Auto 0.49 K/mm3 (0.9-3.2); Lymphocytes Percent Auto 10.8 % (18.3-44.2); Mean Corpuscular HGB Conc 28.8 g/dl (32-36); Mean Corpuscular Hemoglobin 24.2 pg (26-34); Mean Corpuscular Volume 84.1 fl (80-100); Mean Platelet Volume 9.7 fl (7.4-10.4); Monocytes Absolute Auto 0.7 K/mm3 (0.1-0.6); Monocytes Percent Auto 15.8 % (2.6-8.5); Neutrophils Percent Auto 65.9 % (45.5-73.1); Platelet Count Result 224 k/mm3 (150-375); Red Blood Count 3.72 M/mm3 (4.2-5.4); White Blood Count 4.6 K/mm3 (4.5-10.0)
[2020-06-07 12:30] LABS: Iron 135 ug/dL (37-170)
[2020-06-07 12:39] LABS: Percent Iron Saturation 33 % (20-50); Potassium 4.1 mmol/L (3.4-5.0)
[2020-06-07 12:40] LABS: Alanine Aminotransferase 9 U/L (4-35); Albumin Level 3.9 g/dL (3.5-5.1); Alkaline Phosphatase 57 U/L (38-126); Anion Gap 3 mmol/L (8-16); Aspartate Amino Transferase 20 U/L (14-36); Bilirubin,Total 0.2 mg/dL (0.2-1.3); Blood Urea Nitrogen 17 mg/dL (7-17); Calcium 9.5 mg/dL (8.4-10.2); Carbon Dioxide 31 mmol/L (22-30); Chloride 104 mmol/L (98-107); Estimated Glomerular Filt Rate > 60; Glucose 92 mg/dL (65-105); Sodium 138 mmol/L (137-145)
[2020-06-07 13:06] LABS: Ferritin 9.76 ng/mL (11.1-264)
== END 2020-06-07 09:05 | disposition home or self-care (01) ==
LOC: ANHLAB 09:06
PROVIDERS: PCP Internal Medicine; Visit Provider Internal Medicine Hematology & Oncology
DX: D64.9 Anemia, unspecified (principal); D50.9 Iron deficiency anemia, unspecified; C34.11 Malignant neoplasm of upper lobe, right bronchus or lung
CPT/HCPCS: 36415; 80053; 82607; 82728; 83540; 83550; 85025

== ENCOUNTER 2020-06-19 09:20 | Outpatient (CLI) | payer MEDICARE, MEDICAID, SELFPAY ==
--- NOTE | ~2020-06-19 | CT_ITS ---
EXAMINATION: CT diagnostic chest wo con EXAM DATE: 06/19/2020 09:40 INDICATION: Malignant neoplasm right upper lobe. TECHNIQUE: Spiral CT of the chest without contrast. Axial, coronal and sagittal images were reviewe d. Coronal maximum intensity pixel images of chest reviewed. The dose-length product (DLP) for this examination was 133.38 mGy-cm. The exposure was tailored according to patient size (auto mA exposur e control), and iterative reconstruction (ASIR) was used as additional dose reduction technique. Comp arison is made to prior examination from 05/28/2020. FINDINGS: Right upper lobe masslike opacity with slight interval decrease in size, was 3.0 cm in max imal dimension earlier this month, now about 2.4 cm. Again there is interlobular septal thickening di stal to this mass, likely radiation fibrosis versus carcinomatosis. Left lower lobe small region of nonconfluent airspace disease, interlobular septal thickening measuri ng about 2 cm and is not changed. Right middle of 3 mm nodule unchanged. There is moderate upper lobe predominant emphysema and generalized hyperinflation. There are no pleural or pericardial effusions . Tracheobronchial tree is patent. There is no mediastinal, hilar or axillary lymphadenopathy. There is no pneumothorax. Mild cardiomegaly. There is moderate to severe coronary arterial calcifi cation, arterial sclerosis. There is 3 cm left adrenal adenoma. There is moderate thoracolumbar dex troscoliosis. There are no osteoblastic or osteolytic lesions identified. Right thyroid lobectomy. IMPRESSION: 1. Mild decrease in left upper lobe mass, now 2.4 cm, with some associated peripheral interlobular s eptal thickening, radiation fibrosis versus carcinomatosis. 2. Unchanged left lower lobe opacity which could be postinfectious or cancer. 3. Moderate emphysema and hyperinflation. 4. Mild cardiomegaly. Reviewed, dictated and finalized at location A. IMPRESSION: 1. Mild decrease in left upper lobe mass, now 2.4 cm, with some associated per ipheral interlobular septal thickening, radiation fibrosis versus carcinomatosi s. 2. Unchanged left lower lobe opacity which could be postinfectious or cancer. 3. Moderate emphysema and hyperinflation. 4. Mild cardiomegaly.
== END 2020-06-19 09:21 | disposition home or self-care (01) ==
PROVIDERS: PCP Internal Medicine; Visit Provider Internal Medicine Hematology & Oncology
DX: C34.91 Malignant neoplasm of unspecified part of right bronchus or lung (principal); I51.7 Cardiomegaly; J43.9 Emphysema, unspecified; R91.8 Other nonspecific abnormal finding of lung field
CPT/HCPCS: 71250

== ENCOUNTER 2020-07-30 09:50 | Outpatient (CLI) | payer MEDICARE, MEDICAID, SELFPAY ==
--- NOTE | ~2020-07-30 | CT_ITS ---
EXAMINATION: CT diagnostic chest wo con DATE: 07/30/2020 10:14 INDICATION: Lung cancer TECHNIQUE: Computed tomography (CT) of the chest was performed without intravenous contrast. The dose -length product (DLP) was 116.78 mGy-cm. Automated exposure control and iterative reconstruction tech [employer] were employed. COMPARISON: 06/19/2020 FINDINGS: There is slight interval decrease in size of the previously described left upper lobe nodul e which measures 2 cm, previously 2.4 cm. Peripheral subpleural opacities in the left upper lobe have also decreased. There is a focal airspace opacity posteromedial aspect of the left lower lobe on phuong ge [id number] which is slightly more prominent than on the comparison examination. Additional small nodules o f the lungs previously seen remain stable. There is moderate emphysema. Changes of right hemithyroide ctomy are noted. Cardiomegaly is noted. There is calcified coronary artery atherosclerosis. There are no pathologically enlarged thoracic lymph nodes. There is a stable adenoma of the left adrenal gland . There is severe thoracic spondylosis. IMPRESSION: 1. Slight decrease in size of the previously described left upper lobe nodule, consistent with primar y bronchogenic carcinoma. 2. Decreased opacities in the periphery of the left upper lobe, consistent with resolving atelectasis and/or pneumonia. 3. Moderate emphysema. 4. Focal airspace opacity of the posterior medial left lower lobe which may be infectious or inflamma tory however attention on follow-up examination is recommended. Reviewed, dictated and finalized at location A. IMPRESSION: 1. Slight decrease in size of the previously described left upper lobe nodule, consistent with primary bronchogenic carcinoma. 2. Decreased opacities in the periphery of the left upper lobe, consistent with resolving atelectasis and/or pneumonia. 3. Moderate emphysema. 4. Focal airspace opacity of the posterior medial left lower lobe which may be infectious or inflammatory however attention on follow-up examination is recomm ended.
== END 2020-07-30 09:51 | disposition home or self-care (01) ==
PROVIDERS: PCP Internal Medicine; Visit Provider Radiology Radiation Oncology
DX: C34.12 Malignant neoplasm of upper lobe, left bronchus or lung (principal); J43.9 Emphysema, unspecified; R91.8 Other nonspecific abnormal finding of lung field
CPT/HCPCS: 71250

== ENCOUNTER 2020-08-19 11:35 | Outpatient (CLI) | payer MEDICARE, MEDICAID, SELFPAY ==
[2020-08-19 11:57] LABS: Basophils Absolute Auto 0.1 K/mm3 (0.0-0.1); Basophils Percent Auto 1.4 % (0.2-1.2); Eosinophils Absolute Auto 0.3 K/mm3 (0-0.3); Eosinophils Percent Auto 7.6 % (0-4.4); Hematocrit 36.5 % (37.0-47.0); Hemoglobin 11.4 g/dL (12.0-15.0); Immature Granulocyte Absolute 0.01 K/mm3 (0.00-0.031); Immature Granulocyte Percent A 0.3 % (0-0.5); Lymphocytes Absolute Auto 0.56 K/mm3 (0.9-3.2); Lymphocytes Percent Auto 15.7 % (18.3-44.2); Mean Corpuscular HGB Conc 31.2 g/dl (32-36); Mean Corpuscular Hemoglobin 28.9 pg (26-34); Mean Corpuscular Volume 92.4 fl (80-100); Mean Platelet Volume 9.8 fl (7.4-10.4); Monocytes Absolute Auto 0.5 K/mm3 (0.1-0.6); Monocytes Percent Auto 12.6 % (2.6-8.5); Neutrophils Absolute Auto 2.2 K/mm3 (1.3-6.7); Neutrophils Percent Auto 62.4 % (45.5-73.1); Platelet Count Result 207 k/mm3 (150-375); Red Blood Count 3.95 M/mm3 (4.2-5.4); Red Cell Distribution Width 16.4 % (11.5-14.5); White Blood Count 3.6 K/mm3 (4.5-10.0)
[2020-08-19 12:44] LABS: Anion Gap 3 mmol/L (8-16); Blood Urea Nitrogen 15 mg/dL (7-17); Calcium 9.5 mg/dL (8.4-10.2); Carbon Dioxide 30 mmol/L (22-30); Chloride 105 mmol/L (98-107); Estimated Glomerular Filt Rate > 60; Glucose 95 mg/dL (65-105); Potassium 4.1 mmol/L (3.4-5.0); Sodium 138 mmol/L (137-145)
[2020-08-19 12:55] LABS: Iron 60 ug/dL (37-170)
[2020-08-19 13:09] LABS: Percent Iron Saturation 17 % (20-50)
== END 2020-08-19 11:36 | disposition home or self-care (01) ==
LOC: ANHLAB 11:39
PROVIDERS: PCP Internal Medicine; Visit Provider Internal Medicine Hematology & Oncology
DX: D64.9 Anemia, unspecified (principal)
CPT/HCPCS: 36415; 80048; 82728; 83540; 83550; 85025

== ENCOUNTER 2020-10-09 11:17 | Outpatient (CLI) | payer MEDICARE, MEDICAID, SELFPAY ==
--- NOTE | ~2020-10-09 | CT_ITS ---
EXAMINATION: CT diagnostic chest wo con EXAM DATE: 10/09/2020 11:49 INDICATION: Chronic anemia. Contrast media allergy. Left-sided lung cancer. TECHNIQUE: Spiral CT of the chest without contrast. Axial, coronal and sagittal images of the chest were reviewed. Coronal maximum intensity pixel images of chest reviewed. The dose-length product ( DLP) for this examination was 131.98 mGy-cm. The exposure was tailored according to patient size (au to mA exposure control), and iterative reconstruction (ASIR) was used as additional dose reduction te chnique. Comparison is made to prior examination from 07/30/2020. FINDINGS: Previously seen spiculated left upper lobe opacity, somewhat difficult to measure given sh ape, has increased in size, volume. Region measures 1.5 x 3.6 cm today versus 0.7 x 2.0 on prior stud y. The newly described left lower lobe superior segmental airspace disease has demonstrated improveme nt, likely inflammatory process. There is moderate emphysema. There are no pleural or pericardial ef fusions. Tracheobronchial tree is patent. There is no mediastinal, hilar or axillary lymphadenopa thy. There is no pneumothorax. There is mild cardiomegaly. There is moderate coronary arterial c alcification, arterial sclerosis. There is small sliding gastroesophageal hiatal hernia. There is a 3.2 cm left adrenal gland lesion probably adenoma 11 Hounsfield units. There is thoracic spondylosis without osteoblastic or osteolytic lesions identified. IMPRESSION: 1. Increase in size of spiculated left upper lobe opacity, cancer and treatment-related changes or s carring. 2. Moderate emphysema. 3. Small hiatal hernia. 4. Left adrenal adenoma. Reviewed, dictated and finalized at location B. IMPRESSION: 1. Increase in size of spiculated left upper lobe opacity, cancer and treatmen t-related changes or scarring. 2. Moderate emphysema. 3. Small hiatal hernia. 4. Left adrenal adenoma.
== END 2020-10-09 11:18 | disposition home or self-care (01) ==
PROVIDERS: PCP Internal Medicine; Visit Provider Internal Medicine Hematology & Oncology
DX: D64.9 Anemia, unspecified (principal); K44.9 Diaphragmatic hernia without obstruction or gangrene; D35.02 Benign neoplasm of left adrenal gland
CPT/HCPCS: 71250

== ENCOUNTER 2020-11-14 09:11 | Outpatient (CLI) | payer MEDICARE, MEDICAID, SELFPAY ==
--- NOTE | ~2020-11-14 | PE_ITS ---
EXAMINATION: PET skull to mid thigh DATE: 11/14/2020 11:35 INDICATION: Malignant neoplasm of the left upper lobe bronchus TECHNIQUE: Blood glucose level was 92 mg/dL. 8.246 mCi of 18-fluorodeoxyglucose (18-FDG) was administ ered i.v. Low dose computed tomography (CT) images were acquired from the base of the brain to the pr oximal thighs for attenuation correction and anatomic localization. Positron emission tomography (PET ) images were acquired in the same distribution beginning 56 minutes after injection. Images includin g fused PET/CT images were reconstructed in axial, coronal, and sagittal planes. Automated exposure c ontrol technique was employed. The dose-length product was 584.20mGy-cm. COMPARISON: PET/CT dated 01/23/[address] dated 10/09/2020 FINDINGS: Head/neck: There is a photopenic defect and region of decreased attenuation at the anterolateral right frontal l obe. There is symmetric increased activity in the oral cavity, laryngeal muscles and ocular muscles w ithout CT correlate, likely physiologic. Distal prominent increased uptake in the paraspinal musculat ure and craniocervical junction without radiologic correlate which is also likely physiologic. Status post right thyroidectomy with 9 mm calcified left thyroid nodule. No pathologically enlarged cervica l lymphadenopathy or suspicious foci of increased FDG uptake in the visualized head or neck. Chest: Moderate emphysema. There is an approximately 1.9 x 1.7 x 1.3 cm spiculated nodule along a horizontal band of discoid atelectasis/scarring in the left upper lobe. The nodular opacity is without signific ant interval change in size since the prior PET CT at which time it measured 2.0 x 1.7 x 1.3 cm altho ugh the band of atelectasis/scarring has gotten thicker. The nodule which previously demonstrated mil d to moderate increased FDG uptake with maximal SUV of 4.0 and demonstrates no significant FDG activi ty. Cardiomegaly. Atherosclerotic coronary artery calcification. Aortic valve calcification. No peric ardial or pleural effusion. No pathologically enlarged or FDG avid thoracic lymphadenopathy. Abdomen/pelvis/proximal thighs: Small splenic at location consistent with old granulomatous disease. Physiologic renal accumulation a nd excretion of FDG activity in the kidneys, bladder and along portions of ureters. Normal degree and heterogenous pattern of increased uptake throughout the liver without radiologic correlate or domina nt FDG avid lesion. The pancreas and right adrenal glands are normal. Calcified gallstones within the partially decompressed gallbladder. 2.7 x 1.9 cm low-attenuation left adrenal adenoma without abnorm al FDG uptake. Mild uptake scattered throughout the bowels without radiologic correlate, also likely physiologic. Calcified uterine fibroids. No other abnormal foci of increased FDG uptake or pathologic ally enlarged lymphadenopathy in the abdomen, pelvis or proximal thighs. Musculoskeletal: Moderate thoracolumbar dextroscoliosis. Severe lumbar and lower cervical spondylosis with moderate sp ondylosis of the intervening thoracic spine. L5 spondylolysis with bilateral L5 pars intra-articulari s defects and grade 1 anterolisthesis on S1. Severe right glenohumeral osteoarthritis. There is synov ial mild increased FDG uptake at the bilateral glenohumeral joints. Mild increased FDG uptake situate d between the caudal tips of the scapula and the underlying ribs consistent with scapulothoracic burs itis. No suspicious lytic, blastic or FDG avid bone lesions. IMPRESSION: 1. No change in size of a 1.9 x 1.7 x 1.3 cm spiculated nodule along a band of discoid atelectasis/sc arring in the left upper lobe which is now without evident FDG uptake consistent with treated lung ca ncer. 2. Photopenic defect with associated decreased attenuation at the anterolateral right frontal lobe. D ifferential would include sequela of prior infarc
[2020-11-14 10:02] LABS: Glucose Point of Care 92 mg/dl (65-105)
== END 2020-11-14 09:12 | disposition home or self-care (01) ==
LOC: ANHIMG 09:11
PROVIDERS: PCP Internal Medicine; Visit Provider Radiology Radiation Oncology
DX: C34.12 Malignant neoplasm of upper lobe, left bronchus or lung (principal); R91.8 Other nonspecific abnormal finding of lung field; J43.9 Emphysema, unspecified; K80.50 Calculus of bile duct without cholangitis or cholecystitis without obstruction
CPT/HCPCS: 78815; A9552

== ENCOUNTER 2020-11-18 11:06 | Outpatient (CLI) | payer MEDICARE, MEDICAID, SELFPAY ==
[2020-11-18 11:31] LABS: Basophils Percent Auto 0.8 % (0.2-1.2); Eosinophils Absolute Auto 0.3 K/mm3 (0-0.3); Eosinophils Percent Auto 5.3 % (0-4.4); Hematocrit 28.3 % (37.0-47.0); Hemoglobin 8.7 g/dL (12.0-15.0); Immature Granulocyte Absolute 0.02 K/mm3 (0.00-0.031); Immature Granulocyte Percent A 0.4 % (0-0.5); Lymphocytes Absolute Auto 0.65 K/mm3 (0.9-3.2); Lymphocytes Percent Auto 13.8 % (18.3-44.2); Mean Corpuscular HGB Conc 30.7 g/dl (32-36); Mean Corpuscular Hemoglobin 28.8 pg (26-34); Mean Corpuscular Volume 93.7 fl (80-100); Mean Platelet Volume 9.7 fl (7.4-10.4); Monocytes Absolute Auto 0.6 K/mm3 (0.1-0.6); Monocytes Percent Auto 13.3 % (2.6-8.5); Neutrophils Absolute Auto 3.1 K/mm3 (1.3-6.7); Neutrophils Percent Auto 66.4 % (45.5-73.1); Nucleated Red Blood Cells Perc 0.6 % (0.0-0.2); Platelet Count Result 229 k/mm3 (150-375); Red Blood Count 3.02 M/mm3 (4.2-5.4); Red Cell Distribution Width 14.5 % (11.5-14.5); White Blood Count 4.7 K/mm3 (4.5-10.0)
[2020-11-18 12:22] LABS: Iron 299 ug/dL (37-170)
[2020-11-18 12:34] LABS: Anion Gap 7 mmol/L (8-16); Blood Urea Nitrogen 18 mg/dL (7-17); Calcium 9.2 mg/dL (8.4-10.2); Carbon Dioxide 26 mmol/L (22-30); Chloride 103 mmol/L (98-107); Estimated Glomerular Filt Rate > 60; Glucose 94 mg/dL (65-110); Potassium 4.2 mmol/L (3.4-5.0); Sodium 136 mmol/L (137-145)
[2020-11-18 12:36] LABS: Percent Iron Saturation 85 % (20-50)
== END 2020-11-18 11:07 | disposition home or self-care (01) ==
PROVIDERS: PCP Internal Medicine; Visit Provider Internal Medicine Hematology & Oncology
DX: C34.11 Malignant neoplasm of upper lobe, right bronchus or lung (principal)
CPT/HCPCS: 36415; 80048; 82728; 83540; 83550; 85025

== ENCOUNTER 2020-12-25 02:11 | Day surgery (SDC) | payer MEDICARE, MEDICAID, SELFPAY ==
--- NOTE | ~2020-12-25 | BM_ITS ---
EXAMINATION: CCL bone marrow asp w bx diag ORDER COMPLETED DATE: 12/25/2020 13:52 INDICATION: Chronic anemia TECHNIQUE: A time-out was performed to verify the patient's name, date of , and procedure to b e performed. The procedure including the risks and benefits was discussed with the patient. Risks dis cussed included bleeding, infection, nerve injury and allergic reaction. The patient understood the r isks and agreed to proceed. The skin overlying the right posterior iliac spine was prepped and draped in usual sterile fashion. Anesthetic was administered with 1% lidocaine subcutaneously. Moderate co nscious sedation was achieved with 50 mcg fentanyl IV. An 11 gauge needle was inserted into the ilium with fluoroscopic guidance. Bone marrow was aspirated. An 8 gauge needle was then inserted into the ilium with fluoroscopic guidance. A core bone marrow biopsy was obtained. The needle was removed and the entry site was cleaned and dressed. There were no immediate complications. A total of 14 fluoros copic images were recorded. Fluoroscopy exposure time was 0.1 minutes. FINDINGS: Real-time fluoroscopy demonstrates the biopsy needle tip overlying the left posterior iliac spine. IMPRESSION: 1. Successful fluoroscopic guided bone marrow aspiration. 2. Successful fluoroscopic guided bone marrow biopsy. Reviewed, dictated and finalized at location A.
[2020-12-25 10:56] LABS: Basophils Absolute Auto 0.1 K/mm3 (0.0-0.1); Basophils Percent Auto 1.7 % (0.2-1.2); Eosinophils Absolute Auto 0.2 K/mm3 (0-0.3); Eosinophils Percent Auto 6.3 % (0-4.4); Hematocrit 33.1 % (37.0-47.0); Hemoglobin 10.2 g/dL (12.0-15.0); Immature Granulocyte Absolute 0.01 K/mm3 (0.00-0.031); Immature Granulocyte Percent A 0.3 % (0-0.5); Lymphocytes Absolute Auto 0.43 K/mm3 (0.9-3.2); Lymphocytes Percent Auto 14.2 % (18.3-44.2); Mean Corpuscular HGB Conc 30.8 g/dl (32-36); Mean Corpuscular Volume 100.6 fl (80-100); Monocytes Absolute Auto 0.4 K/mm3 (0.1-0.6); Monocytes Percent Auto 12.5 % (2.6-8.5); Platelet Count Result 192 k/mm3 (150-375); Red Blood Count 3.29 M/mm3 (4.2-5.4); Red Cell Distribution Width 13.3 % (11.5-14.5)
[2020-12-25 11:07] LABS: INR 0.9; Prothrombin Time 12.4 Seconds (11.1-14.7)
[2020-12-25 11:08] VITALS: BP 141/62; PULSE 66; RESP 15; TEMP 36.4; O2SAT 99; BMI 27.6
--- NOTE | 2020-12-25 11:57 | WPDMODSED ---
Moderate Sedation Note-Pt Data Patient Data Allergies Allergy/AdvReac Type Severity Reaction Status Date / Time atenolol Allergy Severe BLURRED Verified 12/25/20 11:17 VISION fenofibrate Allergy Severe GERNERAL Verified 12/25/20 11:17 MUSCLE PAIN methylprednisolone Allergy Severe ANXIETY Verified 12/25/20 11:17 BLURRED VISION naproxen Allergy Severe CHEST PAINS Verified 12/25/20 11:17 Quinolones Allergy Severe BLURRED Verified 12/25/20 11:17 VISION cefuroxime Allergy Mild Nausea and Verified 12/25/20 11:17 Vomiting clarithromycin Allergy Mild Nausea Verified 12/25/20 11:17 iodine Allergy Mild Nausea,WEAK Verified 12/25/20 11:17 NESS celecoxib Allergy Unknown ABD. Verified 12/25/20 11:17 PAIN/DIZZINESS/NAUSEA erythromycin base Allergy Unknown UNKNOWN Verified 12/25/20 11:17 hydrocodone Allergy Unknown CONFUSION/A Verified 12/25/20 11:17 NXIOUS NSAIDS (Non-Steroidal Allergy Unknown FEELS LIKE Verified 11/01/20 09:08 Anti-Inflamma LOSS OF LIFE oxycodone Allergy Unknown REALLY Verified 12/25/20 11:20 PUTS ME IN OUTER SPACE simvastatin Allergy Unknown CONFUSION Verified 12/25/20 11:20 FROM STATINS butorphanol Allergy Unknown Verified 12/25/20 11:22 cephalexin [From Keflex] Allergy Unknown Verified 12/25/20 11:22 doxycycline Allergy Unknown Verified 12/25/20 11:22 Macrolide Antibiotics Allergy Unknown Verified 12/25/20 11:22 risedronate sodium Allergy Unknown Verified 12/25/20 11:22 AZELASTINE HCL Allergy Mild BLURRED Uncoded 12/25/20 11:20 VISION FEXOFENADINE HCL Allergy Mild BLURRED Uncoded 12/25/20 11:20 VISION MEDROXYPROGESTERONE ACETATE Allergy Mild Unknown Uncoded 12/25/20 11:20 PSEUDOEPHEDRINE HCL Allergy Mild BLURRED Uncoded 12/25/20 11:20 VISION Contrast Media Allergy Unknown COULD Uncoded 12/25/20 11:20 TAST FOR 3 DAYS ; CONFUSION MOXIFLOXACIN HCL Allergy Unknown UNKNOWN Uncoded 12/25/20 11:20 Home Medications Medication Instructions Recorded Confirmed Type acetaminophen 500 mg tablet 500 mg PO Q6H PRN 07/31/19 12/25/20 History cholecalciferol (vitamin D3) 25 1,000 unit PO DAILY #90 cap 12/18/19 12/25/20 Rx mcg (1,000 unit) capsule ferrous sulfate 325 mg (65 mg 325 mg PO BID #180 tablet 08/13/20 12/25/20 Rx iron) tablet melatonin 1 mg tablet 1 mg PO HS tablet 08/13/20 12/25/20 History montelukast 10 mg tablet 10 mg PO DAILY #90 tablet 09/04/20 12/25/20 Rx fluticasone propionate 50 1 spray NASAL DAILY #19.8 ml 11/05/20 12/25/20 Rx mcg/actuation nasal spray,suspension cyanocobalamin (vitamin B-12) 1,000 mcg PO DAILY #90 tablet 12/13/20 12/25/20 Rx 1,000 mcg tablet triamcinolone acetonide 0.1 % 1 applic TOPICAL BID PRN #30 g 12/13/20 12/25/20 Rx topical cream diclofenac sodium 1 ea TOPICAL QID 12/25/20 12/25/20 History lisinopril 5 mg PO DAILY 12/25/20 12/25/20 History Sedation/Anesthesia: No previous sedation/anesthesia problems (including family history). [facility] Past Medical History Medical History Anemia Angiodysplasia of gastrointestinal tract Anxiety Cataract COPD (chronic obstructive pulmonary disease) CVA (cerebral vascular accident) Diastolic dysfunction HOCM (hypertrophic obstructive cardiomyopathy) Hypertension Hypothyroidism Malignant neoplasm of upper lobe, unspecified bronchus or lung Mass of left lung Mild acid reflux Mitral regurgitation Osteoarthritis Osteoporosis Parathyroid disorder Tobacco abuse Surgical History Surgical History H/O dilation and curettage 2008 H/O removal of cyst Under left armpit History of knee joint replacement Left 2009 Family History Family History Sibling Family history of coronary artery disease Father Respiratory failure Mother Breast cancer Son Myositis
[2020-12-25 12:45] VITALS: BP 140/68; PULSE 66; RESP 17; TEMP 36.5; O2SAT 99
[2020-12-25 13:00] VITALS: BP 136/65; PULSE 65; RESP 17; O2SAT 98
[2020-12-25 13:15] VITALS: BP 137/65; PULSE 69; RESP 20; O2SAT 98
--- NOTE | 2020-12-25 13:36 | SUR.PHASEII ---
Discharge education reviewed with patient and her support friend, Cherelle, via phone. Patient and Cherelle verbalize understanding of all instructions received. Dressing clean, dry, and intact at discharge with no evidence of bleeding. PIV removed intact, dressing applied. Patient escorted at [facility] via where she was picked up by her friend, Cherelle.
== END 2020-12-25 13:35 | disposition home or self-care (01) ==
PROVIDERS: Radiology Diagnostic Radiology; PCP Internal Medicine; Visit Provider Internal Medicine Hematology & Oncology
DX: C34.90 Malignant neoplasm of unspecified part of unspecified bronchus or lung (principal); C77.1 Secondary and unspecified malignant neoplasm of intrathoracic lymph nodes; D50.9 Iron deficiency anemia, unspecified; Z92.3 Personal history of irradiation; I11.9 Hypertensive heart disease without heart failure; E03.9 Hypothyroidism, unspecified; M81.0 Age-related osteoporosis without current pathological fracture; J44.9 Chronic obstructive pulmonary disease, unspecified; I42.1 Obstructive hypertrophic cardiomyopathy; F41.9 Anxiety disorder, unspecified; Z86.73 Personal history of transient ischemic attack (TIA), and cerebral infarction without residual deficits; K21.9 Gastro-esophageal reflux disease without esophagitis; Z79.51 Long term (current) use of inhaled steroids; Z87.891 Personal history of nicotine dependence
CPT/HCPCS: 36415; 38222; 85025; 85610; 88184; 88185; 88305; 88311; 88313; 88341; 88342; 88360; J1642; J2250; J3010; J7040

== ENCOUNTER 2021-01-15 14:18 | Outpatient (CLI) | payer MEDICARE, MEDICAID, SELFPAY ==
[2021-01-15 14:40] LABS: Hematocrit 26.1 % (37.0-47.0); Hemoglobin 7.9 g/dL (12.0-15.0); Mean Corpuscular HGB Conc 30.3 g/dl (32-36); Mean Corpuscular Hemoglobin 30.3 pg (26-34); Mean Platelet Volume 9.8 fl (7.4-10.4); Platelet Count Result 230 k/mm3 (150-375); Red Blood Count 2.61 M/mm3 (4.2-5.4); White Blood Count 5.8 K/mm3 (4.5-10.0)
[2021-01-15 14:52] LABS: Blood Urea Nitrogen 29 mg/dL (8-26); Carbon Dioxide 25 mmol/L (22-30); Chloride 102 mmol/L (98-109); Estimated Glomerular Filt Rate > 60; Glucose 95 mg/dL (70-105); Sodium 138 mmol/L (138-146)
[2021-01-15 16:42] LABS: Iron 57 ug/dL (37-170)
[2021-01-15 16:51] LABS: Percent Iron Saturation 15 % (20-50)
== END 2021-01-15 14:19 | disposition home or self-care (01) ==
LOC: ANHLAB 14:22
PROVIDERS: PCP Internal Medicine; Visit Provider Internal Medicine Hematology & Oncology
DX: C34.11 Malignant neoplasm of upper lobe, right bronchus or lung (principal); D64.9 Anemia, unspecified
CPT/HCPCS: 36415; 80048; 82728; 83540; 83550; 85027

== ENCOUNTER 2021-03-19 08:20 | Outpatient (CLI) | payer MEDICARE, MEDICAID, SELFPAY ==
--- NOTE | ~2021-03-19 | CT_ITS ---
EXAMINATION: CT diagnostic chest wo con DATE: 03/19/2021 09:02 INDICATION: Malignant neoplasm of left upper lobe TECHNIQUE: Computed tomography (CT) of the chest was performed without intravenous contrast. Automate d exposure control and iterative reconstruction technique were employed. Exam dose: 190.82 mGy-cm to benjy exam DLP. COMPARISON: 10/09/2020 CT chest 11/14/2020 PET/CT scan FINDINGS: Previously reported approximately 1.5 x 3.6 cm left upper lobe mass on 10/09/2020 currently measures approximately 7.5 x 1.5 cm approximate maximal dimension, with diminished prominence of surr ounding infiltrate and discoid stranding since 10/09/2020. In similar axial plane there is patchy infiltrate primarily in the periphery of the superior segment of the left lower lobe and lingula; differential diagnosis includes possible post-radiation change or pneumonia. Emphysematous changes are again noted. Cardiomegaly and coronary artery calcifications. Small sliding hiatal hernia. Approximately 1.9 x 2.8 cm low attenuation left adrenal mass, likely an adenoma. Prominent degenerative disc disease in lower cervical spine. Degenerative changes of the thoracic sp ine and particularly lumbar spine. Right glenohumeral osteoarthritis. IMPRESSION: Interval decreased size of left upper lobe mass since 10/09/2020 Patchy lingular and superior segment left lower lobe infiltrates, possibly post-radiation change vers us pneumonia COPD Reviewed, dictated and finalized at [facility]. Reviewed, dictated and finalized at location B. NTIFIC ILLUSTRATOR IMPRESSION: Interval decreased size of left upper lobe mass since 10/09/2020 Patchy lingular and superior segment left lower lobe infiltrates, possibly post -radiation change versus pneumonia COPD
== END 2021-03-19 08:21 | disposition home or self-care (01) ==
LOC: ANHIMG 08:25
PROVIDERS: PCP Internal Medicine; Visit Provider Internal Medicine Hematology & Oncology
DX: C34.11 Malignant neoplasm of upper lobe, right bronchus or lung (principal); J44.9 Chronic obstructive pulmonary disease, unspecified
CPT/HCPCS: 71250

== ENCOUNTER 2021-06-02 10:22 | Outpatient (CLI) | payer MEDICARE, MEDICAID, SELFPAY ==
--- NOTE | ~2021-06-02 | CT_ITS ---
EXAMINATION: CT diagnostic chest wo con DATE: 06/02/2021 10:41 INDICATION: Malignant neoplasm of the lung TECHNIQUE: Computed tomography (CT) of the chest was performed without intravenous contrast. The dose -length product (DLP) was 121.28 mGy-cm. Automated exposure control and iterative reconstruction tech nique were employed. COMPARISON: 03/19/2021, 10/09/2020, 05/28/2020 FINDINGS: There is moderate emphysema. Airspace opacities of the left midlung zone and perihilar michael on persist without significant change. No new nodule or mass is identified. There is a 5 mm nodule of the right middle lobe on image 70 with slight increase in size when compared to prior examinations. There is mild dependent atelectasis of the lungs. There is no pleural effusion or pneumothorax. Eller es of right thyroidectomy are noted. There are no pathologically enlarged thoracic lymph nodes. Cardi omegaly is noted. There is calcified coronary artery atherosclerosis. There is stable adenoma of the left adrenal gland. There is severe thoracic spondylosis. IMPRESSION: 1. Stable airspace opacities of the left midlung zone and perihilar region, consistent with treated m alignancy. 2. 5 mm right middle lobe nodule with slight increase in size concerning for malignancy, primary vers us metastatic. Recommend CT-guided biopsy or continued short-term interval follow-up CT. Reviewed, dictated and finalized at location B. ET RESEARCH COORDINATOR IMPRESSION: 1. Stable airspace opacities of the left midlung zone and perihilar region, con sistent with treated malignancy. 2. 5 mm right middle lobe nodule with slight increase in size concerning for ma lignancy, primary versus metastatic. Recommend CT-guided biopsy or continued sh ort-term interval follow-up CT.
== END 2021-06-02 10:23 | disposition home or self-care (01) ==
LOC: ANHIMG 10:26
PROVIDERS: PCP Internal Medicine; Visit Provider Internal Medicine Hematology & Oncology
DX: C34.11 Malignant neoplasm of upper lobe, right bronchus or lung (principal)
CPT/HCPCS: 71250

== ENCOUNTER 2021-07-21 12:13 | Outpatient (CLI) | payer MEDICARE, MEDICAID, SELFPAY ==
--- NOTE | ~2021-07-21 | XR_ITS ---
XR shoulder RT min 2V DATE: 07/21/2021 12:40 INDICATION: Right shoulder pain while reaching TECHNIQUE: 4 views COMPARISON: None FINDINGS: There is diffuse osteopenia. There is severe osteoarthritis at the glenohumeral joint. There is degenerative change at the acromio clavicular joint. No fracture or dislocation, periosteal reaction or bone destruction is detected. Surgical clips overlie the right thyroid area. IMPRESSION: Severe right glenohumeral arthritis Degenerative change at right acromion clavicular joint Osteopenia Reviewed, dictated and finalized at location A.
== END 2021-07-21 12:14 | disposition home or self-care (01) ==
LOC: ANHIMG 12:22
PROVIDERS: PCP Internal Medicine; Visit Provider Clinical Nurse Specialist
DX: M85.811 Other specified disorders of bone density and structure, right shoulder (principal); M19.011 Primary osteoarthritis, right shoulder
CPT/HCPCS: 73030

== ENCOUNTER 2021-09-03 14:17 | Outpatient (CLI) | payer MEDICARE, MEDICAID, SELFPAY ==
--- NOTE | ~2021-09-03 | CT_ITS ---
EXAMINATION: CT diagnostic chest wo con DATE: 09/03/2021 14:47 INDICATION: Malignant neoplasm of lung TECHNIQUE: Computed tomography (CT) of the chest was performed without intravenous contrast. Automate d exposure control and iterative reconstruction technique were employed. Exam dose: 129.75 mGy-cm to benjy exam DLP. COMPARISON: 03/19/2021 and 06/02/2021 CTA chest examinations FINDINGS: Prominent emphysematous changes are noted throughout both lungs, more prominent in the uppe r lobes. There is mild chronic discoid scarring in the lower lobes. There is interval increased patchy infiltrate in the superior segment of the left lower lobe, which m ay be due to postoperative radiation pneumonitis, pneumonia or recurrent malignancy. Chronic relatively stable left upper lobe/lingular infiltrate, scarring and/or atelectasis since 09/2021. Stable approximately 5 mm middle lobe nodule. Cardiomegaly. Aortic valve calcification. Prominent coronary artery calcifications. No pericardial ef fusion. There is extensive thoracic aortic calcification as well as great vessel calcifications. Chronic left adrenal adenoma. Osteopenia. Prominent degenerative change and scoliosis of the spine. IMPRESSION: Increased patchy infiltrate in the superior segment left lower lobe which may be due to pneumonia, postoperative radiation change and/or recurrent malignancy Chronic left upper lobe infiltrate, atelectasis and/or scarring, relatively stable since 06/02/2021 Reviewed, dictated and finalized at [facility]. Reviewed, dictated and finalized at location A. IMPRESSION: Increased patchy infiltrate in the superior segment left lower lob e which may be due to pneumonia, postoperative radiation change and/or recurren t malignancy Chronic left upper lobe infiltrate, atelectasis and/or scarring, relatively sta ble since 06/02/2021
== END 2021-09-03 14:18 | disposition home or self-care (01) ==
PROVIDERS: PCP Internal Medicine; Visit Provider Internal Medicine Hematology & Oncology
DX: C34.11 Malignant neoplasm of upper lobe, right bronchus or lung (principal)
CPT/HCPCS: 71250

== ENCOUNTER 2021-10-01 10:28 | Inpatient (IN) | payer MEDICARE, MEDICAID, SELFPAY ==
[2021-10-01] VITALS (10 sets, daily range): BP systolic 125–185; BP diastolic 33–88; PULSE 61–105; RESP 14–19; TEMP 36.2–36.5; O2SAT 93–100
--- NOTE | ~2021-10-01 | XR_ITS ---
XR chest 1V portable DATE: 10/06/2021 15:04 INDICATION: Hypoxia TECHNIQUE: Portable upright AP chest on 10/06/2021 at 1449 hours COMPARISON: 10/05/2021 portable AP chest at 0550 hours 10/01/2021 2 view chest 09/03/2021 CT chest FINDINGS: There is mild interval improvement o fin filtrate in the left mid to upper lung since 022. Cardiomegaly. Aortic calcification and tortuosity. Diffuse osteopenia. Bilateral right greater than left glenohumeral osteoarthritis. Surgical clips overlie the lower right cervical area. IMPRESSION: Mild interval improvement of the mid to upper left lung infiltrate since 10/01/2021 Reviewed, dictated and finalized at location A.
--- NOTE | ~2021-10-01 | XR_ITS ---
XR hip LT min 3V w AP pelvis 10/01/2021 11:31 Indication: Status post fall with left hip pain Procedure: 3 views left hip Comparison: 07/28/2010 Findings: There is a mildly displaced left femoral intertrochanteric fracture. Pelvic rings are intac t. There is osteoarthritis of the hips. Advanced lower lumbar spondylosis with scoliosis. There are c alcifications overlying the right kidney, likely gallstones. Impression: 1: Mildly displaced left femoral intertrochanteric fracture. Reviewed, dictated and finalized at location A. Impression: 1: Mildly displaced left femoral intertrochanteric fracture.
--- NOTE | ~2021-10-01 | XR_ITS ---
EXAMINATION: XR chest 1V portable INDICATION: Shortness of breath, COVID 19 TECHNIQUE: Portable AP chest at 0615 hours COMPARISON: 10/01/2021 FINDINGS: Chronic left perihilar and upper lobe opacities persist without significant change. No pleu ral effusion or pneumothorax. The cardiomediastinal silhouette is normal. Surgical clips are noted in the right neck. IMPRESSION: 1. Chronic left perihilar and upper lobe airspace opacities, consistent with scarring and treated mal ignancy. Reviewed, dictated and finalized at location B. IMPRESSION: 1. Chronic left perihilar and upper lobe airspace opacities, consistent with sc arring and treated malignancy.
--- NOTE | ~2021-10-01 | XR_ITS ---
EXAMINATION: XR chest 2V DATE: 10/01/2021 11:31 INDICATION: Chest pain TECHNIQUE: Frontal and lateral views of the chest are obtained COMPARISON: CT, 09/03/2021 FINDINGS: There are chronic left perihilar and upper lobe opacities without significant change since the recent chest CT. No pleural effusion or pneumothorax. Cardiomegaly is noted. There is thoracolumb ar levoscoliosis with moderate lumbar spondylosis. IMPRESSION: 1. Left perihilar and upper lobe airspace opacities, consistent with scarring and treated malignancy. Reviewed, dictated and finalized at location B. IMPRESSION: 1. Left perihilar and upper lobe airspace opacities, consistent with scarring a nd treated malignancy.
--- NOTE | ~2021-10-01 | XR_ITS ---
XR elbow RT min 3V DATE: 10/01/2021 11:31 INDICATION: Fall. Skin tear. TECHNIQUE: 4 views COMPARISON: None FINDINGS: No fracture or dislocation or joint effusion. Small dorsal olecranon process spur. Osteopenia. IMPRESSION: No fracture or dislocation Reviewed, dictated and finalized at location A. IMPRESSION: No fracture or dislocation
--- NOTE | ~2021-10-01 | CT_ITS ---
EXAMINATION: CT cervical spine wo con DATE: 10/01/2021 11:17 INDICATION: Fall. Head and neck injuries. TECHNIQUE: Computed tomography (CT) of the cervical spine was performed without intravenous contrast. Automated exposure control and iterative reconstruction technique were employed. Exam dose: 197.47 mGy-cm total exam DLP. COMPARISON: None FINDINGS: There is reversal of cervical curvature which may be due to positioning and/or muscle spasm . Mild degenerative disc disease and minimal anterolisthesis at C2-3. Moderate degenerative disc disease at C3-4. Severe degenerative disc disease at C4-5, C5-6, C6-7. Moderate degenerative disc disease and 1.5 mm anterolisthesis at C7-T1. There is fusion of the apophyseal joints bilaterally at C4-5. Very prominent hypertrophic degenerative change at the apophyseal joints throughout the remainder of the cervical spine. There is degenerative change at the uncovertebral joints throughout the cervical spine diverticulosis . C5-6 and C6-7. Moderate to moderately severe degenerative disc disease and minimal anterolisthesis at T1-2 and T2-3. Emphysematous changes are noted in the upper lung zones.. IMPRESSION: Reversal of cervical curvature which may be due to muscle spasm or positioning No fracture or dislocation or locked facet is evident Severe cervical spondylosis Reviewed, dictated and finalized at Location A. Reviewed, dictated and finalized at location A.
--- NOTE | ~2021-10-01 | CT_ITS ---
EXAMINATION: CT brain wo con INDICATION: Headache COMPARISON: 05/11/2013, 11/24/2020 TECHNIQUE: Standard unenhanced head CT. The dose-length product (DLP) was 605.33 mGy-cm. The mA was a djusted according to patient size. Iterative reconstruction technique was employed. FINDINGS: There is no acute intraparenchymal hemorrhage. No evidence of mass lesion. No evidence of a cute infarction. There are areas of prior infarction in the right frontal lobe. There is mild periven tricular and subcortical hypodensity probably related to small vessel ischemic disease. There is mild prominence of the sulci and ventricles related to cerebral atrophy. Intracranial calcified cerebral atherosclerosis is noted. There are no extra-axial collections. There is no mass effect or midline sh ift. The orbits and soft tissues are unremarkable. The visualized sinuses and mastoid air cells are w ell aerated. IMPRESSION: 1. Areas of prior infarction without acute intracranial abnormality. 2. Age related findings. Reviewed, dictated and finalized at location B.
--- NOTE | ~2021-10-01 | XR_ITS ---
EXAMINATION: XR chest 1V portable DATE: 10/05/2021 06:01 INDICATION: COVID TECHNIQUE: frontal view of the chest was obtained. COMPARISON: Chest radiograph dated 10/03/2021, 10/01/2021 and 07/17/[address] studies dated 12/27/2019 an d 09/03/2021 FINDINGS: Increased lucency and architectural distortion in the bilateral upper lung zones, left greater than r ight consistent with moderate emphysema better appreciated on prior CT. No recent interval change in a triangular airspace opacity in the left midlung zone likely representing radiation fibrosis for christian atment of a reported prior left upper lobe lung cancer. Increased interstitial pattern and mild airsp idris opacities in the bilateral lower lung zones which could represent mild pulmonary edema, atelectas is or pneumonia. No pleural effusion or pneumothorax. Cardiomegaly. Surgical clips at the right base of the neck. Severe degenerative skeletal changes in the spine and at the right shoulder. IMPRESSION: 1. Increasing mild interstitial and subtle airspace opacities in the bilateral lower lung zones which could represent developing mild pulmonary edema, atelectasis or pneumonia. 2. Unchanged lingular airspace opacity in the left midlung zone likely radiation fibrosis for treated lung cancer. 3. Cardiomegaly. Reviewed, dictated and finalized at location A. IMPRESSION: 1. Increasing mild interstitial and subtle airspace opacities in the bilateral lower lung zones which could represent developing mild pulmonary edema, atelect asis or pneumonia. 2. Unchanged lingular airspace opacity in the left midlung zone likely radiatio n fibrosis for treated lung cancer. 3. Cardiomegaly.
--- NOTE | ~2021-10-01 | XR_ITS ---
EXAMINATION: XR surgery orthopedic DATE: 10/02/2021 13:51 INDICATION: Intertrochanteric fracture the proximal left femur. TECHNIQUE: 6 fluoroscopic images of the left hip were obtained during procedure performed by Dr. Amairani garcia. Radiologist was not present for the imaging or procedure. The amount of fluoroscopy time used du ring this procedure was 0.7 minutes. COMPARISON: 10/01/2021 FINDINGS: Interval reduction and internal fixation of the previously seen intertrochanteric fracture the proxim al femur with an antegrade intramedullary abigail with dynamic femoral neck compression screw and more di stal metadiaphyseal interlocking screw fixation. The tip of the intramedullary abigail extends to the dis benjy metaphyseal region of the left femur. Alignment of the fixation appears near-anatomic. Partially visualized left total knee arthroplasty. No new fractures identified. Mild left hip osteoarthritis. E xpected small amount of soft tissue gas the operative bed. IMPRESSION: 1. Reduction and internal fixation of the intratrochanteric fracture of the proximal left femur which is in near-anatomic alignment, negative for postoperative purposes. Reviewed, dictated and finalized at location A. IMPRESSION: 1. Reduction and internal fixation of the intratrochanteric fracture of the pro ximal left femur which is in near-anatomic alignment, negative for postoperativ e purposes.
--- NOTE | 2021-10-01 10:35 | ECG_ITS ---
Measurements Intervals [place] Rate: 65 P: TN: 0 QRS: -37 QRSD: 145 T: 19 QT: 417 QTc: 435 Interpretive Statements SINUS RHYTHM WITH FIRST DEGREE AV BLOCK NONCONDUCTED ATRIAL PREMATURE COMPLEX LEFT AXIS DEVIATION RIGHT BUNDLE BRANCH BLOCK BASELINE ARTIFACT- I, II, III, AVR, AVL, AVF, V1-V6 ABNORMAL ECG Electronically Signed On 10-01-2021 11:02:02 CDT by Mik Cardona D.O.
--- NOTE | 2021-10-01 10:40 | ED.FALL ---
HPI - Fall General Chief Complaint: Fall Stated Complaint: Fall - hip injury Time Seen by Provider: 10/01/21 10:30 Source: patient History of Present Illness HPI Narrative: Patient presents with left hip pain. Patient ports she woke up and was getting dressed when she turned to get her close she turned too quickly and fell onto her left side had immediate pain in her left hip so she came to ER further evaluation. She denied prodrome prior to the fall such as chest pain lightheadedness dizziness or shortness of breath. Reports her primary area of pain is the left hip she also reports an injury to her right elbow. She denied striking her head or any loss of conscious denies any focal numbness or weakness denies any headache or changes in vision. Her pain in hip is achy constant worse with attempting to move her head, no radiation Related Data Home Medications Medication Instructions Recorded Confirmed acetaminophen 500 mg tablet 500 mg PO Q6H PRN Pain (Scale 07/31/19 10/01/21 (Tylenol Extra Strength) Score 1-3) ascorbate calcium (vitamin C) 500 500 mg PO DAILY 06/16/21 10/01/21 mg tablet ferrous sulfate 325 mg (65 mg 325 mg PO BID 06/16/21 10/01/21 iron) tablet cetirizine 10 mg tablet (Zyrtec) 10 mg PO DAILY 06/24/21 10/01/21 melatonin 1 mg tablet 1 mg PO QHS 08/27/21 10/01/21 polyethylene glycol 3350 17 gram 17 g PO DAILY 08/27/21 10/01/21 oral powder packet (Miralax) lisinopril 5 mg tablet 5 mg PO DAILY 10/01/21 10/01/21 Allergies Allergy/AdvReac Type Severity Reaction Status Date / Time atenolol Allergy Severe BLURRED Verified 09/15/21 10:05 VISION fenofibrate Allergy Severe GERNERAL Verified 09/15/21 10:05 MUSCLE PAIN methylprednisolone Allergy Severe ANXIETY Verified 09/15/21 10:05 BLURRED VISION naproxen Allergy Severe CHEST PAINS Verified 09/15/21 10:05 Quinolones Allergy Severe BLURRED Verified 09/15/21 10:05 VISION cefuroxime Allergy Mild Nausea and Verified 09/15/21 10:05 Vomiting clarithromycin Allergy Mild Nausea Verified 09/15/21 10:05 iodine Allergy Mild Nausea,WEAK Verified 09/15/21 10:05 NESS celecoxib Allergy Unknown ABD. Verified 09/15/21 10:05 PAIN/DIZZINESS/NAUSEA erythromycin base Allergy Unknown UNKNOWN Verified 09/15/21 10:05 hydrocodone Allergy Unknown CONFUSION/A Verified 09/15/21 10:05 NXIOUS NSAIDS (Non-Steroidal Allergy Unknown FEELS LIKE Verified 09/15/21 10:05 Anti-Inflamma LOSS OF LIFE oxycodone Allergy Unknown REALLY Verified 09/15/21 10:05 PUTS ME IN OUTER SPACE simvastatin Allergy Unknown CONFUSION Verified 09/15/21 10:05 FROM STATINS butorphanol Allergy Unknown Verified 09/15/21 10:05 cephalexin [From Keflex] Allergy Unknown Verified 09/15/21 10:05 doxycycline Allergy Unknown Verified 09/15/21 10:05 Macrolide Antibiotics Allergy Unknown Verified 09/15/21 10:05 risedronate sodium Allergy Unknown Verified 09/15/21 10:05 acetaminophen [From Vicodin] AdvReac Unknown Verified 09/15/21 10:05 AZELASTINE HCL Allergy Mild BLURRED Uncoded 09/15/21 10:05 VISION FEXOFENADINE HCL Allergy Mild BLURRED Uncoded 09/15/21 10:05 VISION MEDROXYPROGESTERONE ACETATE Allergy Mild Unknown Uncoded 09/15/21 10:05 PSEUDOEPHEDRINE HCL Allergy Mild BLURRED Uncoded 09/15/21 10:05 VISION Contrast Media Allergy Unknown COULD Uncoded 09/15/21 10:05 TAST FOR 3 DAYS ; CONFUSION MOXIFLOXACIN HCL Allergy Unknown UNKNOWN Uncoded 09/15/21 10:05 Review of Systems Review of Systems: CONSTITUTIONAL: Denies fever, chills, or sweats. EYES: Denies visual changes, redness, or discharge. ENT: Denies rhinorrhea, congestion, sore throat, or otalgia. CARDIOVASCULAR: Denies chest pain, palpitations, or edema. RESPIRATORY: Denies cough or dyspnea. GASTROINTESTINAL: Denies abdominal pain, nausea, vomiting, or diarrhea. GENITOURINARY: Denies dysuria or hematuria. SKIN: Denies rash or itching. MUSCULOSKELETAL:
[2021-10-01] MEDS: fentaNYL CITRATE INJ (*CRX) 100 MCG/2 ML VIAL 50 MCG IV PUSH (10:44)
[2021-10-01] MEDS: SODIUM CHLORIDE 0.9% IV 500 ML 999 ML IV CONT (10:44)
[2021-10-01] MEDS: TETANUS,DIPHTHERIA,AC PERTUSSIS ADULT (0.5 ML) BOOSTRIX IM (10:44)
[2021-10-01 10:47] LABS: Glucose Point of Care 94 mg/dl (65-105)
[2021-10-01 11:02] LABS: Eosinophils Absolute Auto 0.2 K/mm3 (0-0.3); Eosinophils Percent Auto 3.9 % (0-4.4); Hematocrit 36.2 % (37.0-47.0); Immature Granulocyte Absolute 0.02 K/mm3 (0.00-0.031); Immature Granulocyte Percent A 0.5 % (0-0.5); Lymphocytes Absolute Auto 0.53 K/mm3 (0.9-3.2); Lymphocytes Percent Auto 12.9 % (18.3-44.2); Mean Corpuscular HGB Conc 30.4 g/dl (32-36); Mean Corpuscular Hemoglobin 29.7 pg (26-34); Mean Corpuscular Volume 97.8 fl (80-100); Mean Platelet Volume 10.7 fl (7.4-10.4); Monocytes Absolute Auto 0.4 K/mm3 (0.1-0.6); Monocytes Percent Auto 10.4 % (2.6-8.5); Neutrophils Absolute Auto 2.9 K/mm3 (1.3-6.7); Neutrophils Percent Auto 71.3 % (45.5-73.1); Platelet Count Result 219 k/mm3 (150-375); Red Cell Distribution Width 13.8 % (11.5-14.5); White Blood Count 4.1 K/mm3 (4.5-10.0)
--- NOTE | 2021-10-01 11:04 | PC.NURSE ---
Pt to xray.
[2021-10-01 11:14] LABS: Alanine Aminotransferase 10 U/L (6-35); Albumin Level 4.1 g/dL (3.5-5.1); Alkaline Phosphatase 62 U/L (38-126); Anion Gap 3 mmol/L (8-16); Aspartate Amino Transferase 18 U/L (14-36); Bilirubin,Total < 0.1 mg/dL (0.2-1.3); Blood Urea Nitrogen 18 mg/dL (7-17); Calcium 8.9 mg/dL (8.4-10.2); Carbon Dioxide 27 mmol/L (22-30); Chloride 105 mmol/L (98-107); Estimated CRCL calculation 46 ml/min; Estimated Glomerular Filt Rate > 60; Glucose 94 mg/dL (65-110); Magnesium 2.1 mg/dL (1.6-2.3); Potassium 4.3 mmol/L (3.4-5.0); Sodium 135 mmol/L (137-145)
[2021-10-01 12:17] LABS: Appearance Urine Clear (Clear); Bilirubin Urine Negative (Negative); Blood Urine Negative (Negative); Color Urine Yellow (Yellow); Glucose Urine UA Negative (Negative); Ketones Urine Negative (Negative); Leukocyte Esterase Ur 1+ LEU/UL (Negative); Nitrate Urine Negative (Negative); Protein Urine Negative (Negative); Urobilinogen Urine 0.2 mg/dL (<2.0); pH Urine 6.5 (5.0-9.0)
[2021-10-01 12:25] LABS: Bacteria Urine Trace /hpf; Mucus Urine Rare /lpf; RBC Urine 0-2 /hpf (0-2); Squamous Epithelial Cell Urine Rare /hpf (Few)
[2021-10-01 12:34] LABS: SARS-CoV-2 RNA PCR Positive
[2021-10-01 12:35] LABS: Add Urine Microscopic? YES
[2021-10-01] MEDS: MORPHINE SULFATE (*CRX) 4 MG/ML INJ IV PUSH ×2 (12:59→21:40)
--- NOTE | 2021-10-01 13:27 | PM.IMHP ---
H&P: HPI History of Present Illness Date/Time: 10/01/21 13:27 Chief Complaint: Fall Narrative: This is an 85-year-old female patient who came into the emergency room with complaints of left hip pain after sustaining a ground level fall. The patient stated that she woke up and she was getting dressed when she turned around to get her clothes she turned to quickly and fell on her left hip. The left leg is slightly externally rotated and shortened. The patient denied any chest pain or lightheadedness or any dizziness or shortness of breath. The patient also noted that she had a skin abrasion to her right elbow. She denied striking her head are any loss of consciousness. The patient was unable to walk on the left leg. Her H&H today is 11.0 in 36.2. Which is improved from last month. Sodium is 135. The patient was also found to be positive for COVID. The patient was given IV fluids in the emergency room fentanyl, morphine, oxycodone, Zofran and Ativan was ordered as well. The patient stated that she was very nervous about her recovery. Ortho has been consulted. The patient is being admitted to observation status on the date of service of 10/01/2021. Review of Systems Review of Systems: All systems reviewed & are unremarkable except as noted in HPI and below Constitutional: Constitutional: Reports as per HPI and Reports no additional constitutional complaints Eyes: Eyes: Reports as per HPI and Reports no additional eye complaints ENT: Reports system reviewed and no additional complaints, except as documented and Reports Normal hearing present Cardiovascular: Cardiovascular: Reports no additional cardiovascular complaints Respiratory: Respiratory: Reports no additional respiratory complaints and Reports no additional respiratory complaints Gastrointestinal: Gastrointestinal: Reports as per HPI and Reports no additional gastrointestinal complaints Musculoskeletal: Musculoskeletal: Reports no additional musculoskeletal complaints Integumentary/Breasts: Skin/Breast: Reports system reviewed and no additional complaints, except as docu and Reports as per HPI Neurologic: Reports system reviewed and no additional complaints, except as documented, Reports as per HPI and Reports Normal hearing present Psychiatric: Psychiatric: Reports no additional psychiatric complaints and Reports as per HPI Endocrine: Endocrine: Reports no additional endocrine complaints Hematologic/Lymphatic: Hematologic/Lymphatic: Reports no additional hematologic/lymphatic complaints Allergic/Immunologic: Allergic/Immunologic: Reports no additional allergic/immunologic complaints PMFSH Past Medical History Medical History Anemia Angiodysplasia of gastrointestinal tract Anxiety Cataract COPD (chronic obstructive pulmonary disease) CVA (cerebral vascular accident) Diastolic dysfunction HOCM (hypertrophic obstructive cardiomyopathy) Hypertension Hypothyroidism Malignant neoplasm of upper lobe, unspecified bronchus or lung Mass of left lung Mild acid reflux Mitral regurgitation Osteoarthritis Osteoporosis Parathyroid disorder Tobacco abuse Weakness Surgical History Surgical History H/O dilation and curettage 2008 H/O removal of cyst Under left armpit History of knee joint replacement Left 2009 Family History Family History Sibling Family history of coronary artery disease Father Respiratory failure Mother Breast cancer Son Myositis ossificans progressiva Other Family history of arthritis Family history of cardiovascular disease Family history of chronic obstructive pulmonary disease Hypertension Social History Social History (Updated 10/01/21 @ 15:28 by Noemi Ayala NP) Social History: The patient lives in an apartment building by herself. She is .
--- NOTE | 2021-10-01 14:01 | ADMGEN ---
This patient, Mercy Dobbs, was admitted to [facility] [place] Surg Room 326-01. Patient/family oriented to hospital policies and general routines including ID bracelet, bed and alarms, visiting hours, pain management, procedures, bathroom and other care routines, personal items, smoking policy, room service/diet, and visiting hours. Information on how to activate the Rapid Response Team has been discussed. Patient/Family are encouraged to report perceived risks to care and to ask questions if they do not understand what they are told or what they should do.
[2021-10-01] MEDS: SODIUM CHLORIDE 0.9% IV 1,000 ML 125 ML IV CONT ×2 (14:26→20:35)
[2021-10-01] MEDS: ONDANSETRON INJ 4 MG/2 ML VIAL IV PUSH (14:47)
--- NOTE | 2021-10-01 16:43 | PM.CNOR ---
Assessment and Plan Assessment and plan (1) Closed intertrochanteric fracture of left hip: Qualifiers: Encounter type: initial encounter Fracture alignment: displaced Qualified Code(s): S72.142A - Displaced intertrochanteric fracture of left femur, initial encounter for closed fracture Code(s): S72.142A - Displaced intertrochanteric fracture of left femur, initial encounter for closed fracture Status: Acute Assessment and Plan: New patient evaluation for chief complaint left hip fracture. History, physical exam and radiographs reviewed with the patient. Discussed the condition, nature, etiology and course of natural history with the patient. Treatment options including surgical and nonoperative treatment were reviewed. Risks and benefits of each as well as alternatives reviewed. The patient's questions were answered. Patient is awake and alert and oriented x3. Conservative treatment ice, Pain control. Discussed nonoperative and operative treatment options with the patient. Risks and benefits of each as well as alternatives were reviewed. All of the patient's questions were answered. The risks of surgery reviewed including but not limited to: Neurovascular damage, wound complication, infection, blood clot, pulmonary embolus, stroke, myocardial infarction, and anesthetic risks up to and including . Continued pain and possible dysfunction were explained. Specific risks of the procedure including later recurrence of deformity. No guarantees were offered. If hardware used, discussed risk of failure/ breakage and possible need for removal. If complications occur, the patient understands the need for further treatment, possible further surgery. Patient verbalizes understanding and wishes to proceed. PLAN: left hip trochanteric nail. COVID isolation precautions. (2) Fall from standing: Qualifiers: Encounter type: initial encounter Qualified Code(s): W19.XXXA - Unspecified fall, initial encounter Code(s): W19.XXXA - Unspecified fall, initial encounter Status: Acute History of Present Illness HPI Consult date: 10/02/21 Requesting physician: Walt Marrufo MD Consult reason: fracture ( left hip) Chief complaint: Left hip fracture Narrative: 85-year-old woman who fell onto her left side. Unable to bear weight. Brought to the emergency room and found to have left hip fracture. Admitted for further care. No prior problems with the hip or complaints. Review of Systems Constitutional: Constitutional: Denies fever(s) Eyes: Eyes: Denies blurry vision ENT: Reports Normal hearing present Cardiovascular: Cardiovascular: Denies chest pain and Denies dyspnea Respiratory: Respiratory: Denies dyspnea and Denies wheezing Gastrointestinal: Gastrointestinal: Denies abdominal pain Genitourinary: Genitourinary: Denies urinary urgency Musculoskeletal: Musculoskeletal: Reports as per HPI and Denies numbness Integumentary/Breasts: Skin/Breast: Denies changing lesions and Denies sores Neurologic: Reports Normal hearing present, Denies behavioral changes, Denies confusion, Denies numbness and Denies convulsions Psychiatric: Psychiatric: Denies behavioral changes, Denies confusion and Denies hallucinations Endocrine: Endocrine: Denies heat intolerance Hematologic/Lymphatic: Hematologic/Lymphatic: Denies easy bleeding Allergic/Immunologic: Allergic/Immunologic: Denies wheezing [facility] Past Medical History Medical History (Updated 10/01/21 @ 16:46 by Jean-Paul Ramos MD) Anemia Angiodysplasia of gastrointestinal tract Anxiety Cataract Closed intertrochanteric fracture of left hip COPD (chronic obstructive pulmonary disease) CVA (cerebral vascular accident) Diastolic dysfunction Fall from standing HOCM (hypertrophic obstructive cardiomyopathy) Hypertension Hypothyroidism Malignant neoplasm of upper lobe, unspecified bronchus or lung Mass of left lung Mild acid
[2021-10-01] MEDS: FERROUS SULFATE 324 MG TABLET PO (18:03)
[2021-10-01] MEDS: MELATONIN 3 MG TABLET PO (20:32)
[2021-10-02] VITALS (15 sets, daily range): BP systolic 107–167; BP diastolic 46–88; PULSE 72–100; RESP 16–21; TEMP 36.3–36.6; O2SAT 90–100
[2021-10-02] MEDS: SODIUM CHLORIDE 0.9% IV 1,000 ML 125 ML IV CONT (03:24)
[2021-10-02] MEDS: FAMOTIDINE 20 MG/2 ML VIAL IV PUSH (03:24)
[2021-10-02] MEDS: MORPHINE SULFATE (*CRX) 4 MG/ML INJ IV PUSH ×2 (03:29→20:34)
[2021-10-02 06:38] LABS: Basophils Absolute Auto 0.1 K/mm3 (0.0-0.1); Basophils Percent Auto 0.7 % (0.2-1.2); Eosinophils Absolute Auto 0.1 K/mm3 (0-0.3); Eosinophils Percent Auto 0.9 % (0-4.4); Hematocrit 37.3 % (37.0-47.0); Hemoglobin 10.9 g/dL (12.0-15.0); Immature Granulocyte Absolute 0.02 K/mm3 (0.00-0.031); Immature Granulocyte Percent A 0.3 % (0-0.5); Lymphocytes Absolute Auto 0.44 K/mm3 (0.9-3.2); Lymphocytes Percent Auto 6.4 % (18.3-44.2); Mean Corpuscular HGB Conc 29.2 g/dl (32-36); Mean Corpuscular Hemoglobin 29.3 pg (26-34); Mean Corpuscular Volume 100.3 fl (80-100); Mean Platelet Volume 10.7 fl (7.4-10.4); Monocytes Absolute Auto 0.7 K/mm3 (0.1-0.6); Monocytes Percent Auto 10.3 % (2.6-8.5); Neutrophils Absolute Auto 5.6 K/mm3 (1.3-6.7); Neutrophils Percent Auto 81.4 % (45.5-73.1); Platelet Count Result 180 k/mm3 (150-375); Red Blood Count 3.72 M/mm3 (4.2-5.4); Red Cell Distribution Width 13.5 % (11.5-14.5); White Blood Count 6.9 K/mm3 (4.5-10.0)
[2021-10-02 06:57] LABS: Alanine Aminotransferase 8 U/L (6-35); Albumin Level 3.3 g/dL (3.5-5.1); Alkaline Phosphatase 53 U/L (38-126); Anion Gap 6 mmol/L (8-16); Aspartate Amino Transferase 30 U/L (14-36); Bilirubin,Total 0.4 mg/dL (0.2-1.3); Blood Urea Nitrogen 11 mg/dL (7-17); Carbon Dioxide 20 mmol/L (22-30); Chloride 108 mmol/L (98-107); Estimated CRCL calculation 62 ml/min; Estimated Glomerular Filt Rate > 60; Glucose 111 mg/dL (65-110); Potassium 3.9 mmol/L (3.4-5.0); Sodium 134 mmol/L (137-145)
--- NOTE | 2021-10-02 07:09 | WPDHPUPDATE1 ---
History and Physical Update Update Date/Time: 10/02/21 07:09 History and Physical has been reviewed, including an updated exam of the patient. There are NO changes in the patient's condition. Risks, benefits, and alternatives have been discussed and questions answered. Patient agrees to proceed with procedure.
[2021-10-02 08:01] LABS: Hypochromasia 1+ (NORMAL); Platelet Estimate Adequate (Adequate)
--- NOTE | 2021-10-02 08:17 | WPDANESEPPF ---
Anes - Initial Pre Proc Eval Procedure: Operation Date: 10/02/21 12:30 Proposed Procedures p Left Intertrochanteric Nail - Jean-Paul Ramos MD Date/Time: 10/02/21 08:17 Surgeon: Lamberto Ramon MD Pre Op Diagnosis: Left hip fracture Patient Data Age: 85 Gender: F Height: 1.57 m Weight: 67.9 kg Last Vital Signs Temp 36.3 C L 10/02/21 04:00 Pulse 78 10/02/21 04:00 Resp 18 10/02/21 04:00 BP 114/54 L 10/02/21 04:00 Pulse Ox 90 10/02/21 04:00 O2 Del Method Room Air 10/01/21 20:00 Allergies Allergy/AdvReac Type Severity Reaction Status Date / Time atenolol Allergy Severe BLURRED Verified 09/15/21 10:05 VISION fenofibrate Allergy Severe GERNERAL Verified 09/15/21 10:05 MUSCLE PAIN methylprednisolone Allergy Severe ANXIETY Verified 09/15/21 10:05 BLURRED VISION naproxen Allergy Severe CHEST PAINS Verified 09/15/21 10:05 Quinolones Allergy Severe BLURRED Verified 09/15/21 10:05 VISION cefuroxime Allergy Mild Nausea and Verified 09/15/21 10:05 Vomiting clarithromycin Allergy Mild Nausea Verified 09/15/21 10:05 iodine Allergy Mild Nausea,WEAK Verified 09/15/21 10:05 NESS celecoxib Allergy Unknown ABD. Verified 09/15/21 10:05 PAIN/DIZZINESS/NAUSEA erythromycin base Allergy Unknown UNKNOWN Verified 09/15/21 10:05 hydrocodone Allergy Unknown CONFUSION/A Verified 09/15/21 10:05 NXIOUS NSAIDS (Non-Steroidal Allergy Unknown FEELS LIKE Verified 09/15/21 10:05 Anti-Inflamma LOSS OF LIFE oxycodone Allergy Unknown REALLY Verified 09/15/21 10:05 PUTS ME IN OUTER SPACE simvastatin Allergy Unknown CONFUSION Verified 09/15/21 10:05 FROM STATINS butorphanol Allergy Unknown Verified 09/15/21 10:05 cephalexin [From Keflex] Allergy Unknown Verified 09/15/21 10:05 doxycycline Allergy Unknown Verified 09/15/21 10:05 Macrolide Antibiotics Allergy Unknown Verified 09/15/21 10:05 risedronate sodium Allergy Unknown Verified 09/15/21 10:05 acetaminophen [From Vicodin] AdvReac Unknown Verified 09/15/21 10:05 AZELASTINE HCL Allergy Mild BLURRED Uncoded 09/15/21 10:05 VISION FEXOFENADINE HCL Allergy Mild BLURRED Uncoded 09/15/21 10:05 VISION MEDROXYPROGESTERONE ACETATE Allergy Mild Unknown Uncoded 09/15/21 10:05 PSEUDOEPHEDRINE HCL Allergy Mild BLURRED Uncoded 09/15/21 10:05 VISION Contrast Media Allergy Unknown COULD Uncoded 09/15/21 10:05 TAST FOR 3 DAYS ; CONFUSION MOXIFLOXACIN HCL Allergy Unknown UNKNOWN Uncoded 09/15/21 10:05 Home Medications Medication Instructions Recorded Confirmed Type acetaminophen 500 mg tablet 500 mg PO Q6H PRN Pain (Scale 07/31/19 10/01/21 History (Tylenol Extra Strength) Score 1-3) cholecalciferol (vitamin D3) 25 1,000 unit PO DAILY #90 caps 12/18/19 10/01/21 Rx mcg (1,000 unit) capsule cyanocobalamin (vitamin B-12) 1,000 mcg PO DAILY #90 tabs 03/10/21 10/01/21 Rx 1,000 mcg tablet (Vitamin B-12) famotidine 40 mg tablet (Pepcid) 40 mg PO DAILY #90 tabs 03/17/21 10/01/21 Rx montelukast 10 mg tablet 10 mg PO DAILY #90 tabs 03/17/21 10/01/21 Rx ascorbate calcium (vitamin C) 500 500 mg PO DAILY 06/16/21 10/01/21 History mg tablet ferrous sulfate 325 mg (65 mg 325 mg PO BID 06/16/21 10/01/21 History iron) tablet cetirizine 10 mg tablet (Zyrtec) 10 mg PO DAILY 06/24/21 10/01/21 History melatonin 1 mg tablet 1 mg PO QHS 08/27/21 10/01/21 History polyethylene glycol 3350 17 gram 17 g PO DAILY 08/27/21 10/01/21 History oral powder packet (Miralax) fluticasone propionate 50 See Rx Instructions .Route 09/23/21 10/01/21 Rx mcg/actuation nasal .COMPLEX #16 mL spray,suspension lisinopril 5 mg tablet 5 mg PO DAILY 10/01/21 10/01/21 History Laboratory Tests 0710/01/21 10/01/21 10:41 10:51 10:51 WBC 4.1 K/mm3 L K/mm3 (4.5-10.0) RBC 3.70 M/mm3 L M/mm3 (4.2-5.4) Hgb 11.0 g/dL L g/dL (12.0-15.0) Hct 36
[2021-10-02] MEDS: ceFAZolin 2 GM/D5W 50 ML 2 GM/50 ML BAG IVPB (12:54)
[2021-10-02] MEDS: TRANEXAMIC ACID 1,000 MG/10 ML AMPUL 1000 MG IV PUSH (13:24)
[2021-10-02] MEDS: BUPIVACAINE/EPINEPHRINE 0.25% 50 ML VIAL INFILTRATE (13:26)
[2021-10-02] MEDS: LACTATED RINGERS 1,000 ML 30 ML IV CONT (13:53)
--- NOTE | 2021-10-02 14:17 | P.OP_ITS ---
Procedure Note - Detailed Date of Procedure 10/02/21 Pre-op Diagnosis Left hip fracture Post-op Diagnosis Same Procedure Performed LT hip IT nail Surgeon Jean-Paul Ramos MD Supervisor Cloth Winding 1st assist Anesthesia General Indications 85 yo woman lt IT hip fx. Presents for operative tx Description of Procedure After informed consent the operative extremity was marked in the preoperative holding area. Patient received intravenous antibiotics. The patient was taken to the operative room, placed in the supine position, general anesthesia induced by the anesthesia team, and was placed on a fracture table with longitudinal traction applied to the left leg. The hip fracture was reduced to near anatomic position and verified with image intensification. A time-out was performed confirming the patient, site of the surgery and plan. The left lower extremity was prepped and draped sterilely from the knee to the iliac crest region using a ChloraPrep skin solution. Incision was made just proximal to greater trochanter down to the subcutaneous tissues. Hemostasis controlled with electrocautery. Blunt dissection through the fascia to the tip of the greater trochanter. A starter awl was placed at the tip of the greater trochanter into the medullary canal of the femur. This was checked with image intensification and was in good position. Intramedullary guide abigail positioned. A one-step hand reaming done proximally. Intramedullary canal was reamed with a 12.5 millimeter flexible reamer. Measuring was then performed off of the guide abigail. Neck angle selected off of preoperative radiographs temp plating. 130 degree 11 X 360mm Nail opened on the back table and assembled. This was then inserted over the guide abigail to the correct depth. Guide abigail removed. Lag screw was then placed with a stab incision over the lateral femur using a 10 blade knife. Blunt dissection down to the lateral side of the bone. Soft tissue protectors placed. Guide pin placed in the center center position of the femoral head and measured. 90 millimeter x 10.5 millimeter lag screw placed to correct depth and verified with image intensification. Traction released from the leg and compression of the fracture performed with the external compression device. Distal locking of the nail performed with the outrigger and soft tissue protector. Stab incision with 15 blade knife and blunt dissection lateral side of the femur. Drill and appropriate size screw placed. Final image intensification confirmed reduction of the fracture and placement of the hardware. Wounds then thoroughly irrigated with antibiotic solution. Fascia repaired with 0 Vicryl interrupted suture. Subcutaneous tissue repaired with 2 O Vicryl interrupted suture and skin repaired with karen. Sterile dressings applied. Patient then awoke from anesthesia, extubated taken to recovery room stable condition. All sponge, needle and instrument counts correct at the end the case. Implants Arthrex troch nail 11.0mmX 360mm X 125degree. 90 X 10.5mm lag. 36 x 5mm locking screw Estimated Blood Loss 100 Tourniquet Time 0 IV Fluids 0 Urine Output 0 Drains No Packing No Pathology None sent Complications None Condition Stable Disposition PACU
[2021-10-02] MEDS: FAMOTIDINE 20 MG TABLET 40 MG PO (16:41)
[2021-10-02] MEDS: FERROUS SULFATE 324 MG TABLET PO ×2 (16:41→19:14)
[2021-10-02] MEDS: lisinopriL 5 MG TABLET PO (16:42)
[2021-10-02] MEDS: polyethylene glycoL 3350 17 GM POWD.PACK PO (16:42)
[2021-10-02] MEDS: MONTELUKAST SODIUM 10 MG TABLET PO (16:42)
[2021-10-02] MEDS: KCL 20 MEQ/D5/0.45% SOD CHL 1,000 ML 80 ML IV CONT (16:42)
[2021-10-02] MEDS: SENNA/DOCUSATE SODIUM TABLET 2 TAB PO (16:42)
--- NOTE | 2021-10-02 18:12 | PM.IMPN ---
Progress Note: A&P Assessment and Plan (1) Femur fracture: Code(s): S72.90XA - Unspecified fracture of unspecified femur, initial encounter for closed fracture Status: Acute (2) COVID: Code(s): U07.1 - COVID-19 Status: Acute (3) TAISHA (iron deficiency anemia): Code(s): D50.9 - Iron deficiency anemia, unspecified Status: Acute (4) Malignant neoplasm of upper lobe, left bronchus or lung: Code(s): C34.12 - Malignant neoplasm of upper lobe, left bronchus or lung Status: Acute (5) COPD (chronic obstructive pulmonary disease): Code(s): J44.9 - Chronic obstructive pulmonary disease, unspecified Status: Acute Assessment and Plan: Continue with Singulair. (6) Hypertension: Qualifiers: Hypertension type: essential hypertension Qualified Code(s): I10 - Essential (primary) hypertension Code(s): I10 - Essential (primary) hypertension Status: Acute Plan Patient presents with left hip pain after a fall. CT the brain shows areas of prior infarct without acute findings. Cervical spine CT showed no fracture dislocation. Chest x-ray shows left perihilar and upper lobe airspace opacities consistent with scarring and treated malignancy. Elbow x-ray was negative for fracture but hip x-ray shows mildly displaced left femoral intratrochanteric fracture. White count slightly low at 4100 but this has normalized. Hemoglobin slightly low at 11 and iron studies drawn do confirm iron deficiency anemia. CMP was essentially normal. Urinalysis showed 1+ leukocyte esterase and 7-9 white cells otherwise negative. Urine cultures pending. She was treated with cefazolin as perioperative antibiotic. She was on room air on admission but was placed on oxygen today. She does not wear oxygen at home. Suspect oxygen uses in the perioperative and probably not required. Do not feel she is hypoxic due to COVID. She is postop from hip fracture surgery repair. Steroids can inhibit healing. Will see how she progresses. Will check chest x-ray. Follow her clinically as well. She is on oral iron which we will continue. She would benefit from acute rehab. Further recommendations as course dictates. Subjective Date/time seen: 10/02/21 18:12 Interval history: 85yo female with hx of HTN, COPD and CVA here for left hip after a fall and found to have a left hip fracture and COVID. Patient did have the original COVID vaccine series about a year ago but has not had a booster. She has a murmur on exam which she is aware of but does not know if there is any required follow-up for this. She is back from surgery. Her pain is well controlled. She denies any chest pain or shortness of breath. She has a productive cough with whitish sputum. She does not wear oxygen at home. Exam Narrative: AF 97.6 125/62 89 16 96% 2L Gen - NARD Chest -lungs are clear anteriorly in the flanks. CV - RRR S1/S2 with a holosystolic murmur heard loudest in the right upper sternal border that radiates to the carotids. Abd - Soft, protuberant, nontender. Positive bowel sounds. -Nicole catheter secured draining clear yellow urine. Ext -left hip dressing is clean, dry intact. Trace sayra ankle edema. Negative Homans sign. Psych - Nml mood and affect Skin - Warm and dry Objective Data Vital Signs Vital Signs: Vital Signs - 24 hr 10/01/21 20:00 10/02/21 00:00 10/01/21 20:00 Temperature 97.1 F L 97.8 F Pulse Rate 78 72 Respiratory Rate 18 16 Blood Pressure 133/33 L 124/59 L Pulse Oximetry 93 100 Oxygen Delivery Room Air Oxygen Flow Rate 10/02/21 04:00 10/02/21 08:51 10/02/21 13:53 Temperature 97.3 F L 97.5 F L 97.8 F Pulse Rate 78 83 100 Respiratory Rate 18 16 21 H Blood Pressure 114/54 L 136/53 L 107/88 Pulse Oximetry 90 93 98 Oxygen Delivery Simple Face Mask Oxygen Flow Rate 10 10/02/21 14:05 10/02/21 14:20 10/02/21 14:35 Temperature Pulse Rate 98
[2021-10-02] MEDS: MELATONIN 3 MG TABLET PO (20:35)
[2021-10-03] VITALS (7 sets, daily range): BP systolic 98–152; BP diastolic 42–62; PULSE 77–97; RESP 17–26; TEMP 36.2–36.9; O2SAT 89–100; BMI 10.0
[2021-10-03] MEDS: MORPHINE SULFATE (*CRX) 4 MG/ML INJ IV PUSH (04:54)
[2021-10-03] MEDS: KCL 20 MEQ/D5/0.45% SOD CHL 1,000 ML 80 ML IV CONT (04:55)
[2021-10-03 06:25] LABS: Basophils Percent Auto 0.2 % (0.2-1.2); Eosinophils Percent Auto 0.4 % (0-4.4); Hematocrit 31.2 % (37.0-47.0); Hemoglobin 9.2 g/dL (12.0-15.0); Immature Granulocyte Absolute 0.01 K/mm3 (0.00-0.031); Immature Granulocyte Percent A 0.2 % (0-0.5); Lymphocytes Absolute Auto 0.38 K/mm3 (0.9-3.2); Lymphocytes Percent Auto 7.1 % (18.3-44.2); Mean Corpuscular HGB Conc 29.5 g/dl (32-36); Mean Corpuscular Volume 98.4 fl (80-100); Mean Platelet Volume 10.6 fl (7.4-10.4); Monocytes Absolute Auto 0.9 K/mm3 (0.1-0.6); Monocytes Percent Auto 16.2 % (2.6-8.5); Neutrophils Percent Auto 75.9 % (45.5-73.1); Platelet Count Result 163 k/mm3 (150-375); Red Blood Count 3.17 M/mm3 (4.2-5.4); Red Cell Distribution Width 13.2 % (11.5-14.5); White Blood Count 5.3 K/mm3 (4.5-10.0)
[2021-10-03 06:36] LABS: Anion Gap 3 mmol/L (8-16); Blood Urea Nitrogen 7 mg/dL (7-17); Calcium 7.8 mg/dL (8.4-10.2); Carbon Dioxide 26 mmol/L (22-30); Chloride 105 mmol/L (98-107); Estimated CRCL calculation 53 ml/min; Estimated Glomerular Filt Rate > 60; Glucose 131 mg/dL (65-110); Potassium 3.6 mmol/L (3.4-5.0); Sodium 134 mmol/L (137-145)
[2021-10-03] MEDS: HYDROcodone/acetaminophen (*CRX) 5-325 MG TABLET 1 TAB PO ×2 (10:28→16:30)
[2021-10-03] MEDS: FAMOTIDINE 20 MG TABLET 40 MG PO (10:28)
[2021-10-03] MEDS: lisinopriL 5 MG TABLET PO (10:28)
[2021-10-03] MEDS: SENNA/DOCUSATE SODIUM TABLET 2 TAB PO ×2 (10:28→16:30)
[2021-10-03] MEDS: MONTELUKAST SODIUM 10 MG TABLET PO (10:28)
[2021-10-03] MEDS: polyethylene glycoL 3350 17 GM POWD.PACK PO (10:28)
[2021-10-03] MEDS: FONDAPARINUX SODIUM 2.5 MG/0.5 ML SYRINGE SUB-Q (10:29)
[2021-10-03] MEDS: FERROUS SULFATE 324 MG TABLET PO ×2 (10:29→16:30)
--- NOTE | 2021-10-03 11:14 | PM.PNORT ---
Progress Note: A&P Assessment and Plan (1) Closed intertrochanteric fracture of left hip: Qualifiers: Encounter type: subsequent encounter Fracture alignment: displaced Fracture healing: with routine healing Qualified Code(s): S72.142D - Displaced intertrochanteric fracture of left femur, subsequent encounter for closed fracture with routine healing Code(s): S72.142A - Displaced intertrochanteric fracture of left femur, initial encounter for closed fracture Status: Acute Assessment and Plan: Postoperative day 1. Pain control. PT/ OT with weight-bearing as tolerated. DVT prophylaxis with Arixtra. Plan for aspirin discharge. Disposition when medically stable. Subjective Subjective Date/Time Seen: 10/03/21 11:14 Post Op day: 1 Principal diagnosis: Left hip fracture Interval history: patient awake and sitting up in bed. Mild left hip pain under control. Slow with therapy this morning. Exam Const: General: No confusion Orientation/consciousness: No confusion HENMT: Head: normal to inspection, normocephalic and atraumatic Eyes: Conjunctivae: conjunctivae normal Sclera: sclerae normal Neck: Neck: supple and nontender Chest: Chest palpation & inspection: normal inspection of the chest Resp: Effort & Inspection: normal respiratory effort and no audible wheezes Cardio: Rate: regular rate Rhythm: regular rhythm : General: Yes deferred Skin: General skin exam: no rashes or lesions noted Neuro: General: No confusion Cranial nerves: Yes Normal hearing present Extrem: General: capillary refill normal Right upper extremity: normal to inspection Left upper extremity: normal to inspection Right lower extremity: normal to inspection, hip/thigh Details: normal to inspection and normal ROM; no tenderness and no swelling, knee Details: no tenderness and no swelling, ankle Details: normal ROM (Able to flex and extend the ankle) and foot Details: vascular exam Details: dorsalis pedis pulse present and normal capillary refill, tendon exam (Moves all toes) and motor-sensory exam Details: light-touch normal Location: in all toes Left lower extremity: hip/thigh Details: tenderness Location: of the hip Location: laterally and anteriorly, swelling Location: of the hip and abnormal ROM Details: pain with passive ROM (Full motion deferred secondary to fracture) Details: with flexion, with internal rotation and with external rotation, ankle (no calf tenderness) Details: normal ROM (Able to flex/ extend ankle) and foot Details: toes with normal ROM (Moves all toes), vascular exam Details: dorsalis pedis pulse present and normal capillary refill and motor-sensory exam light-touch normal in all toes; no tenderness Other: Left hip dressing clean dry and intact. Muscle compartments soft. Psych: Affect: normal affect Objective Data Vital Signs Vital Signs: Vital Signs - 24 hr 10/02/21 13:53 10/02/21 14:05 10/02/21 14:20 Temperature 97.8 F Pulse Rate 100 98 94 Respiratory Rate 21 H 16 20 Blood Pressure 107/88 167/71 H 167/79 H Pulse Oximetry 98 95 93 Oxygen Delivery Simple Face Mask Simple Face Mask Room Air Oxygen Flow Rate 10 10 10/02/21 14:35 10/02/21 14:43 10/02/21 15:12 Temperature 97.4 F L Pulse Rate 96 93 93 Respiratory Rate 20 20 18 Blood Pressure 145/63 H 152/70 H 136/46 L Pulse Oximetry 93 100 93 Oxygen Delivery Nasal Cannula Nasal Cannula Oxygen Flow Rate 2 2 10/02/21 15:25 10/02/21 15:55 10/02/21 17:18 Temperature 97.6 F 97.7 F 97.6 F Pulse Rate 93 95 89 Respiratory Rate 16 16 16 Blood Pressure 138/51 L 146/61 H 125/62 Pulse Oximetry 95 95 96 Oxygen Delivery Oxygen Flow Rate 10/02/21 11:23 10/02/21 20:00 10/02/21 20:29 Temperature 97.6 F Pulse Rate 89 Respiratory Rate 18 Blood Pressure 129/57 L Pulse Oximetry 94 96 95 Oxygen Delivery Nasal Cannula Nasal Cannula Oxygen Flow Rate 3 2 10/03/21 00:29 10/03/21 04:29 10/03/21 08
--- NOTE | 2021-10-03 16:18 | PM.IMPN ---
Progress Note: A&P Assessment and Plan (1) Femur fracture: Code(s): S72.90XA - Unspecified fracture of unspecified femur, initial encounter for closed fracture Status: Acute (2) COVID: Code(s): U07.1 - COVID-19 Status: Acute (3) TAISHA (iron deficiency anemia): Code(s): D50.9 - Iron deficiency anemia, unspecified Status: Acute (4) Malignant neoplasm of upper lobe, left bronchus or lung: Code(s): C34.12 - Malignant neoplasm of upper lobe, left bronchus or lung Status: Acute (5) COPD (chronic obstructive pulmonary disease): Code(s): J44.9 - Chronic obstructive pulmonary disease, unspecified Status: Acute Assessment and Plan: Continue with Singulair. (6) Hypertension: Qualifiers: Hypertension type: essential hypertension Qualified Code(s): I10 - Essential (primary) hypertension Code(s): I10 - Essential (primary) hypertension Status: Acute Plan Patient presents with left hip pain after a fall. CT the brain shows areas of prior infarct without acute findings. Cervical spine CT showed no fracture dislocation. Chest x-ray shows left perihilar and upper lobe airspace opacities consistent with scarring and treated malignancy. Elbow x-ray was negative for fracture but hip x-ray shows mildly displaced left femoral intratrochanteric fracture. White count slightly low at 4100 but this has normalized. Hemoglobin slightly low at 11 and iron studies drawn do confirm iron deficiency anemia. CMP was essentially normal. Urinalysis noted. Urine cultures negative. She was treated with cefazolin as perioperative antibiotic. She was on room air on admission but was placed on oxygen perioperatively. She appears to be able to wean down. Repeat CXR showing no change. She does not wear oxygen at home. Do not feel she is hypoxic due to COVID; more likely related to atelectasis. She is postop from hip fracture surgery repair and therapy has been started. Hgb dropped to 9.2. Drop in hemoglobin related to recent fracture and/or surgery and/or IV fluids. Will stop IV fluids. Continue to follow. She is on oral iron which we will continue. She would benefit from acute rehab. Further recommendations as course dictates. DVT prophylaxis: Arixtra Code status: Full Subjective Date/time seen: 10/03/21 16:18 Interval history: 85yo female with hx of HTN, COPD and CVA here for left hip after a fall and found to have a left hip fracture and COVID. Patient tolerated PT and OT. She denies any chest pain or shortness of breath. Denies cough. No nausea or vomiting. Pain is reasonably well controlled. She was on a clear liquid diet but this has been advanced this evening. Exam Narrative: AF 98.2 127/52 86 24 89% 3L (currently <1L at the wall) Gen - NARD lying semirecumbent in her bed right sided Chest -lungs are clear anteriorly in the flanks. CV - RRR S1/S2 Abd - Soft, NT/ND, +BS - Nicole catheter secured draining clear yellow urine. Ext -left hip dressing is clean, dry intact. Psych - Nml mood and affect. AOx4 Skin - Warm and dry Objective Data Vital Signs Vital Signs: Vital Signs - 24 hr 10/02/21 17:18 10/02/21 20:00 10/02/21 20:29 Temperature 97.6 F 97.6 F Pulse Rate 89 89 Respiratory Rate 16 18 Blood Pressure 125/62 129/57 L Pulse Oximetry 96 96 95 Oxygen Delivery Nasal Cannula Oxygen Flow Rate 2 10/03/21 00:29 10/03/21 04:29 10/03/21 08:18 Temperature 97.1 F L 97.2 F L 97.8 F Pulse Rate 83 77 81 Respiratory Rate 18 18 22 H Blood Pressure 98/42 L 116/43 L 136/53 L Pulse Oximetry 96 98 100 Oxygen Delivery Oxygen Flow Rate 10/03/21 08:42 10/03/21 08:43 10/03/21 12:29 Temperature 98.2 F Pulse Rate 86 Respiratory Rate 24 H Blood Pressure 127/52 L Pulse Oximetry 89 L Oxygen Delivery Nasal Cannula Nasal Cannula Oxygen Flow Rate 2 3 10/03/21 08:00 Temperature Pulse Rate Respiratory Ra
[2021-10-03] MEDS: MELATONIN 3 MG TABLET PO (21:33)
[2021-10-04] VITALS (7 sets, daily range): BP systolic 100–152; BP diastolic 55–86; PULSE 80–92; RESP 16–18; TEMP 36.4–36.6; O2SAT 93–99
[2021-10-04] MEDS: HYDROcodone/acetaminophen (*CRX) 5-325 MG TABLET 1 TAB PO ×3 (01:06→15:17)
[2021-10-04 06:59] LABS: Hematocrit 31.3 % (37.0-47.0); Hemoglobin 9.4 g/dL (12.0-15.0); Mean Corpuscular Volume 96.6 fl (80-100); Mean Platelet Volume 10.6 fl (7.4-10.4); Platelet Count Result 170 k/mm3 (150-375); Red Blood Count 3.24 M/mm3 (4.2-5.4); Red Cell Distribution Width 13.2 % (11.5-14.5); White Blood Count 4.8 K/mm3 (4.5-10.0)
[2021-10-04 07:10] LABS: Anion Gap 3 mmol/L (8-16); Blood Urea Nitrogen 11 mg/dL (7-17); Carbon Dioxide 26 mmol/L (22-30); Chloride 105 mmol/L (98-107); Estimated CRCL calculation 53 ml/min; Estimated Glomerular Filt Rate > 60; Glucose 110 mg/dL (65-110); Potassium 3.6 mmol/L (3.4-5.0); Sodium 134 mmol/L (137-145)
[2021-10-04] MEDS: FONDAPARINUX SODIUM 2.5 MG/0.5 ML SYRINGE SUB-Q (08:21)
[2021-10-04] MEDS: FAMOTIDINE 20 MG TABLET 40 MG PO (08:22)
[2021-10-04] MEDS: lisinopriL 5 MG TABLET PO (08:22)
[2021-10-04] MEDS: FERROUS SULFATE 324 MG TABLET PO ×2 (08:22→16:39)
[2021-10-04] MEDS: MONTELUKAST SODIUM 10 MG TABLET PO (08:22)
[2021-10-04] MEDS: polyethylene glycoL 3350 17 GM POWD.PACK PO (08:22)
[2021-10-04] MEDS: SENNA/DOCUSATE SODIUM TABLET 2 TAB PO ×2 (08:22→16:39)
--- NOTE | 2021-10-04 14:17 | PM.IMPN ---
Progress Note: A&P Assessment and Plan (1) Femur fracture: Code(s): S72.90XA - Unspecified fracture of unspecified femur, initial encounter for closed fracture Status: Acute (2) COVID: Code(s): U07.1 - COVID-19 Status: Acute (3) TAISHA (iron deficiency anemia): Code(s): D50.9 - Iron deficiency anemia, unspecified Status: Acute (4) Malignant neoplasm of upper lobe, left bronchus or lung: Code(s): C34.12 - Malignant neoplasm of upper lobe, left bronchus or lung Status: Acute (5) COPD (chronic obstructive pulmonary disease): Code(s): J44.9 - Chronic obstructive pulmonary disease, unspecified Status: Acute Assessment and Plan: Continue with Singulair. (6) Hypertension: Qualifiers: Hypertension type: essential hypertension Qualified Code(s): I10 - Essential (primary) hypertension Code(s): I10 - Essential (primary) hypertension Status: Acute Plan Patient presents with left hip pain after a fall. CT the brain shows areas of prior infarct without acute findings. Cervical spine CT showed no fracture dislocation. Chest x-ray shows left perihilar and upper lobe airspace opacities consistent with scarring and treated malignancy. Elbow x-ray was negative for fracture but hip x-ray shows mildly displaced left femoral intratrochanteric fracture. White count slightly low at 4100 but this has normalized. Hemoglobin slightly low at 11 and iron studies drawn do confirm iron deficiency anemia. CMP was essentially normal. Urinalysis noted. Urine cultures negative. She was treated with cefazolin as perioperative antibiotic. She was on room air on admission but was placed on oxygen perioperatively. Repeat CXR showing no change so doubt COVID causing the hypoxic. Wean O2 as toelrated. Encouraged IS use. More likely related to atelectasis. She does not wear oxygen at home. She is postop from hip fracture surgery repair and therapy has been started. Hgb dropped to 9 range but stable. Drop in hemoglobin related to recent fracture and/or surgery and/or IV fluids. Continue to follow. She is on oral iron which was continued. She would benefit from acute rehab. Repeat CXR in am. DVT prophylaxis: Arixtra Code status: Full Subjective Date/time seen: 10/04/21 14:18 Interval history: 85yo female with hx of HTN, COPD and CVA here for left hip after a fall and found to have a left hip fracture and COVID. Pain controlled. No cough unless she uses the IS. She does produce whitish sputum. [employer] CP. Up to the chair with lift. Exam Narrative: AF 97.6 100/86 80 16 94% 3L Gen - NARD lying semirecumbent in her bed Chest -few right basilar rhonchi o/w distant breath sounds CV - RRR S1/S2 Abd - Soft, NT/ND, +BS - Nicole catheter secured draining clear yellow urine. Ext -left hip dressing is clean, dry intact. Psych - Nml mood and affect. Alert and appropriate Skin - Warm and dry Objective Data Vital Signs Vital Signs: Vital Signs - 24 hr 10/03/21 16:29 10/03/21 20:00 10/03/21 23:12 Temperature 98.4 F 97.4 F L 97.4 F L Pulse Rate 93 90 97 Respiratory Rate 26 H 18 17 Blood Pressure 152/51 H 101/43 L 122/62 Pulse Oximetry 95 93 90 Oxygen Delivery Oxygen Flow Rate 10/04/21 03:52 10/04/21 08:00 10/04/21 08:00 Temperature 97.6 F 98 F Pulse Rate 86 82 Respiratory Rate 18 18 Blood Pressure 112/55 L 124/56 L Pulse Oximetry 96 96 94 Oxygen Delivery Nasal Cannula Oxygen Flow Rate 3 10/04/21 12:00 10/04/21 14:15 Temperature 97.6 F Pulse Rate 80 Respiratory Rate 16 Blood Pressure 100/86 Pulse Oximetry 99 94 Oxygen Delivery Nasal Cannula Oxygen Flow Rate 3 Intake/Output Intake/Output: Intake & Output 10/01/21 10/02/21 10/03/21 10/04/21 23:59 23:59 23:59 23:59 Intake Total 1980 1630 3090 350 Output Total 350 1000 2175 400 Balance 1630 630 915 -50 Meds/Results Medications: Active Medications G
[2021-10-04] MEDS: MELATONIN 3 MG TABLET PO (21:21)
[2021-10-05] VITALS (9 sets, daily range): BP systolic 111–157; BP diastolic 51–68; PULSE 70–95; RESP 15–20; TEMP 35.9–36.5; O2SAT 93–100
[2021-10-05] MEDS: HYDROcodone/acetaminophen (*CRX) 5-325 MG TABLET 1 TAB PO ×3 (03:44→17:22)
[2021-10-05] MEDS: MONTELUKAST SODIUM 10 MG TABLET PO (09:07)
[2021-10-05] MEDS: FAMOTIDINE 20 MG TABLET 40 MG PO (09:07)
[2021-10-05] MEDS: polyethylene glycoL 3350 17 GM POWD.PACK PO (09:07)
[2021-10-05] MEDS: FONDAPARINUX SODIUM 2.5 MG/0.5 ML SYRINGE SUB-Q (09:07)
[2021-10-05] MEDS: SENNA/DOCUSATE SODIUM TABLET 2 TAB PO ×2 (09:07→17:13)
[2021-10-05] MEDS: FERROUS SULFATE 324 MG TABLET PO ×2 (09:07→17:13)
[2021-10-05] MEDS: lisinopriL 5 MG TABLET PO (09:07)
--- NOTE | 2021-10-05 17:52 | PM.IMPN ---
Progress Note: A&P Assessment and Plan (1) Femur fracture: Code(s): S72.90XA - Unspecified fracture of unspecified femur, initial encounter for closed fracture Status: Acute (2) COVID: Code(s): U07.1 - COVID-19 Status: Acute (3) TAISHA (iron deficiency anemia): Code(s): D50.9 - Iron deficiency anemia, unspecified Status: Acute (4) Malignant neoplasm of upper lobe, left bronchus or lung: Code(s): C34.12 - Malignant neoplasm of upper lobe, left bronchus or lung Status: Acute (5) COPD (chronic obstructive pulmonary disease): Code(s): J44.9 - Chronic obstructive pulmonary disease, unspecified Status: Acute (6) Hypertension: Qualifiers: Hypertension type: essential hypertension Qualified Code(s): I10 - Essential (primary) hypertension Code(s): I10 - Essential (primary) hypertension Status: Acute Plan Patient presents with left hip pain after a fall. CT the brain shows areas of prior infarct without acute findings. Cervical spine CT showed no fracture dislocation. Chest x-ray shows left perihilar and upper lobe airspace opacities consistent with scarring and treated malignancy. Elbow x-ray was negative for fracture but hip x-ray shows mildly displaced left femoral intratrochanteric fracture. White count slightly low at 4100 but this has normalized. Hemoglobin slightly low at 11 and iron studies drawn do confirm iron deficiency anemia. CMP was essentially normal. Urinalysis noted. Urine cultures negative. She was treated with cefazolin as perioperative antibiotic. She was on room air on admission but was placed on oxygen perioperatively. Her therapy is progressing slowly. She remains on 3L. Repeat CXR showing increasing mild interstitial and subtle airspace opacities in the bilateral lower lung zones c/w edema, atelectasis or PNA. She is fluid positive here so will give Lasix once. Encouraged IS use. Doubt PNA. Could still be COVID related. She does not wear oxygen at home. She is postop from hip fracture surgery repair and therapy has been started. Hgb dropped to 9 range but stable. Drop in hemoglobin related to recent fracture and/or surgery and/or IV fluids. Continue to follow. She is on oral iron which was continued. She would benefit from acute rehab. Wean O2 as tolerated. DVT prophylaxis: Arixtra Code status: Full Subjective Date/time seen: 10/05/21 17:52 Interval history: 85yo female with hx of HTN, COPD and CVA here for left hip after a fall and found to have a left hip fracture and COVID. No SOB or chest pain. She is up to the chair with cong steady. Pain controlled. She is using the incentive spirometry. Exam Narrative: AF 97.3 139/52 70 18 100% 3L Gen - NARD Chest - clear bilaterally and in the flanks CV - RRR S1/S2 Abd - Soft, NT/ND, +BS - Nicole catheter secured draining clear yellow urine. Ext -left hip dressing is clean, dry and intact. Psych - Nml mood and affect. Alert and appropriate Skin - Warm and dry Objective Data Vital Signs Vital Signs: Vital Signs - 24 hr 10/04/21 22:24 10/04/21 22:00 10/05/21 06:00 Temperature 97.5 F L 97.4 F L Pulse Rate 81 82 Respiratory Rate 18 20 Blood Pressure 152/81 H 152/68 H Pulse Oximetry 93 97 96 Oxygen Delivery Nasal Cannula Oxygen Flow Rate 3 10/05/21 10:30 10/05/21 08:00 10/05/21 14:27 Temperature 96.8 F L Pulse Rate 73 Respiratory Rate 16 Blood Pressure 157/51 H Pulse Oximetry 96 96 93 Oxygen Delivery Nasal Cannula Nasal Cannula Oxygen Flow Rate 3 3 10/05/21 14:00 Temperature 97.3 F L Pulse Rate 70 Respiratory Rate 18 Blood Pressure 139/52 L Pulse Oximetry 100 Oxygen Delivery Oxygen Flow Rate Intake/Output Intake/Output: Intake & Output 10/02/21 10/03/21 10/04/21 10/05/21 23:59 23:59 23:59 23:59 Intake Total 1630 3090 1070 920 Output Total 1000 2175 800 900 Balance 630 915 270 20 Meds/
[2021-10-05] MEDS: FUROSEMIDE INJ 40 MG/4 ML VIAL IV PUSH (18:21)
[2021-10-05] MEDS: MELATONIN 3 MG TABLET PO (20:21)
[2021-10-06] VITALS (11 sets, daily range): BP systolic 92–158; BP diastolic 47–65; PULSE 71–92; RESP 16–18; TEMP 35.8–36.6; O2SAT 90–100
--- NOTE | 2021-10-06 | ECHO_ITS ---
Patient Info Name: Mercy Dobbs Age: 85 years : 1935 Gender: Female Ht: 62 in Wt: 149 lbs BSA: 1.74 m2 HR: 74 bpm BP: 158 / 65 mmHg Heart Rhythm: Sinus Rhythm Technical Quality: Fair Exam Date: 10/06/2021 10:45 AM Exam Location: [facility] Patient Status: Inpatient Admit Date: 10/02/2021 Staff Ordering Physician: Bony Ramos MD Cane Flume Watchman: Kaylen Moody RDCS Attending Provider: Lamberto Ramon MD Exam Type: CA echo doppler color flow Study Info Indications - Hypoxia Complete two-dimensional, color flow and Doppler transthoracic echocardiogram is performed. Summary 1. Complete two-dimensional, color flow and Doppler transthoracic echocardiogram is performed. 2. Left ventricular chamber dimension is normal. 3. Left ventricular systolic function is normal, estimated at >70%. 4. There is mildly increased left ventricular wall thickness with severe asymmetric septal hypertrophy 2.2 cm. 5. The left ventricular diastolic function is grade I diastolic dysfunction. 6. There is mild aortic valve stenosis with a peak velocity of 314 cm/s, mean gradient of 22 mmHg, and aortic valve area of 1.8 cm2. 7. The aortic valve is not well visualized. 8. There is mild tricuspid valve regurgitation. 9. Severe pulmonary hypertension, estimated pulmonary arterial systolic pressure is 56 mmHg. Left Ventricle Left ventricular chamber dimension is normal. Left ventricular systolic function is normal, estimated at >70%. There is mildly increased left ventricular wall thickness with severe asymmetric septal hypertrophy 2.2 cm. The left ventricular diastolic function is grade I diastolic dysfunction. Right Ventricle Right ventricular chamber dimension is normal. Right ventricular systolic function is normal. Left Atria Left atrial chamber dimension is normal. Right Atria Right atrial chamber dimension is normal. Aortic Valve The aortic valve is not well visualized. There is mild aortic valve stenosis with a peak velocity of 314 cm/s, mean gradient of 22 mmHg, and aortic valve area of 1.8 cm2. There is no aortic valve regurgitation. There is mild aortic valve calcification. Pulmonic Valve The pulmonic valve is not well visualized. Mitral Valve The mitral valve has thickened leaflets. There is trace mitral valve regurgitation. The mitral valve annulus is moderately calcified. Tricuspid Valve The tricuspid valve leaflets are normal. There is mild tricuspid valve regurgitation. Severe pulmonary hypertension, estimated pulmonary arterial systolic pressure is 56 mmHg. Pericardium/Pleural The pericardium appears epicardial fat pad. There is small pericardial effusion. Inferior Vena Cava Normal inferior vena cava with >50% collapse upon inspiration consistent with normal right atrial pressure, 5 mmHg. Aorta The aortic root size at the sinus of Valsalva is normal. There is mild aortic atherosclerosis. Left Ventricular Outflow Tract Name Value Normal LVOT 2D LVOT Diameter 2.0 cm LVOT Doppler LVOT Peak Velocity 176 cm/s LVOT Peak Gradient
[2021-10-06] MEDS: HYDROcodone/acetaminophen (*CRX) 5-325 MG TABLET 1 TAB PO (01:45)
[2021-10-06 06:36] LABS: Hematocrit 26.8 % (37.0-47.0); Hemoglobin 8.3 g/dL (12.0-15.0); Mean Corpuscular Hemoglobin 28.6 pg (26-34); Mean Corpuscular Volume 92.4 fl (80-100); Platelet Count Result 193 k/mm3 (150-375); Red Cell Distribution Width 13.4 % (11.5-14.5); White Blood Count 3.5 K/mm3 (4.5-10.0)
[2021-10-06 06:52] LABS: Albumin Level 2.7 g/dL (3.5-5.1); Anion Gap 4 mmol/L (8-16); Blood Urea Nitrogen 15 mg/dL (7-17); Calcium 7.9 mg/dL (8.4-10.2); Carbon Dioxide 31 mmol/L (22-30); Chloride 100 mmol/L (98-107); Estimated CRCL calculation 46 ml/min; Estimated Glomerular Filt Rate > 60; Glucose 106 mg/dL (65-110); Phosphorus 3.8 mg/dL (2.5-4.5); Potassium 3.6 mmol/L (3.4-5.0); Sodium 135 mmol/L (137-145)
[2021-10-06 06:56] LABS: NT Pro B Type Natriuretic Pept 2030 pg/mL (5-100)
[2021-10-06] MEDS: FUROSEMIDE INJ 40 MG/4 ML VIAL IV PUSH (08:42)
[2021-10-06] MEDS: SENNA/DOCUSATE SODIUM TABLET 2 TAB PO ×2 (08:43→16:07)
[2021-10-06] MEDS: MONTELUKAST SODIUM 10 MG TABLET PO (08:43)
[2021-10-06] MEDS: FAMOTIDINE 20 MG TABLET 40 MG PO (08:43)
[2021-10-06] MEDS: lisinopriL 5 MG TABLET PO (08:43)
[2021-10-06] MEDS: FONDAPARINUX SODIUM 2.5 MG/0.5 ML SYRINGE SUB-Q (08:43)
[2021-10-06] MEDS: polyethylene glycoL 3350 17 GM POWD.PACK PO (08:43)
[2021-10-06] MEDS: FERROUS SULFATE 324 MG TABLET PO ×2 (08:43→16:07)
[2021-10-06] MEDS: POTASSIUM CHLORIDE 20 MEQ TABLET PO (09:03)
--- NOTE | 2021-10-06 14:08 | PM.IMPN ---
Progress Note: A&P Assessment and Plan (1) Femur fracture: Code(s): S72.90XA - Unspecified fracture of unspecified femur, initial encounter for closed fracture Status: Acute (2) COVID: Code(s): U07.1 - COVID-19 Status: Acute (3) TAISHA (iron deficiency anemia): Code(s): D50.9 - Iron deficiency anemia, unspecified Status: Acute (4) Malignant neoplasm of upper lobe, left bronchus or lung: Code(s): C34.12 - Malignant neoplasm of upper lobe, left bronchus or lung Status: Acute (5) COPD (chronic obstructive pulmonary disease): Code(s): J44.9 - Chronic obstructive pulmonary disease, unspecified Status: Acute (6) Hypertension: Qualifiers: Hypertension type: essential hypertension Qualified Code(s): I10 - Essential (primary) hypertension Code(s): I10 - Essential (primary) hypertension Status: Acute Plan Patient presents with left hip pain after a fall. CT the brain shows areas of prior infarct without acute findings. Cervical spine CT showed no fracture dislocation. Chest x-ray shows left perihilar and upper lobe airspace opacities consistent with scarring and treated malignancy. She was COVID positive. Elbow x-ray was negative for fracture but hip x-ray shows mildly displaced left femoral intratrochanteric fracture. White count slightly low at 4100 possibly related to COVID. Hemoglobin slightly low at 11 and iron studies drawn do confirm iron deficiency anemia. CMP was essentially normal. Urinalysis noted. Urine cultures negative. She was treated with cefazolin as perioperative antibiotic. She was on room air on admission but was placed on oxygen perioperatively. She underwent left hip OR/IF with IT nail on 10/02/21. She remains on 3L. Repeat CXR showing increasing mild interstitial and subtle airspace opacities in the bilateral lower lung zones c/w edema, atelectasis or PNA. She is fluid positive here so she was given Lasix IV with good UOP. Encouraged IS use. Doubt PNA. Could still be COVID related. She does not wear oxygen at home. Her therapy is progressing slowly. Hgb dropped to 8.3 . Drop in hemoglobin related to recent fracture and/or surgery and/or IV fluids. Continue to follow. She is on oral iron which was continued. She would benefit from acute rehab. Wean O2 as tolerated. Remove Nicole. Repeat CXR. Echo pending DVT prophylaxis: Arixtra Code status: Full Subjective Date/time seen: 10/06/21 14:08 Interval history: 85yo female with hx of HTN, COPD and CVA here for left hip after a fall and found to have a left hip fracture and COVID. Feels well. Tired today due to a lot of activity. Has trouble bearing weight on the left leg. Right leg also causing problems. Exam Narrative: AF 97.2 142/52 87 18 98% 3L Gen - NARD Chest - CTA bilaterally, nml RR CV - RRR S1/S2 Abd - Soft, NT/ND, +BS - Nicole catheter secured draining clear yellow urine. Ext - left hip dressing is clean, dry and intact. No pedal edema Psych - Nml mood and affect Skin - Warm and dry Objective Data Vital Signs Vital Signs: Vital Signs - 24 hr 10/05/21 14:27 10/05/21 18:00 10/05/21 20:49 Temperature 97.7 F 96.6 F L Pulse Rate 95 87 Respiratory Rate 15 16 Blood Pressure 116/53 L 111/54 L Pulse Oximetry 93 98 97 Oxygen Delivery Nasal Cannula Oxygen Flow Rate 3 10/05/21 22:00 10/05/21 22:06 10/06/21 02:00 Temperature 96.9 F L 96.4 F L Pulse Rate 80 74 Respiratory Rate 16 16 Blood Pressure 144/63 H 158/65 H Pulse Oximetry 97 96 97 Oxygen Delivery Nasal Cannula Oxygen Flow Rate 3 10/06/21 06:00 10/06/21 10:00 10/06/21 08:00 Temperature 97.1 F L 97.2 F L Pulse Rate 71 87 87 Respiratory Rate 18 18 18 Blood Pressure 92/57 L 142/52 H Pulse Oximetry 100 98 98 Oxygen Delivery Nasal Cannula Oxygen Flow Rate 3 Intake/Output Intake/Output: Intake & Output 10/03/21 10/04/21 10/05/21 10/06/21 23:59
--- NOTE | 2021-10-06 15:21 | PC.NURSE ---
alonzo discontinued this shift
[2021-10-06 15:34] LABS: Hematocrit 29.8 % (37.0-47.0); Hemoglobin 9.4 g/dL (12.0-15.0)
[2021-10-06] MEDS: ONDANSETRON INJ 4 MG/2 ML VIAL IV PUSH (18:06)
--- NOTE | 2021-10-06 18:32 | PC.NURSE ---
pt weaned to ra this shift
[2021-10-06 19:48] LABS: CRP 14.5 mg/dL (<1.0); Lactate Dehydrogenase 538 U/L (313-618)
[2021-10-06] MEDS: MELATONIN 3 MG TABLET PO (20:43)
--- NOTE | 2021-10-06 22:37 | PCRCNOTE ---
Pt refuse Apnea link, RN informed.
[2021-10-07 04:09] VITALS: BP 121/52; PULSE 89; RESP 18; TEMP 36.2; O2SAT 93
[2021-10-07 06:13] LABS: Hematocrit 29.1 % (37.0-47.0); Hemoglobin 9.1 g/dL (12.0-15.0); Mean Corpuscular HGB Conc 31.3 g/dl (32-36); Mean Corpuscular Hemoglobin 28.6 pg (26-34); Mean Corpuscular Volume 91.5 fl (80-100); Platelet Count Result 242 k/mm3 (150-375); Red Blood Count 3.18 M/mm3 (4.2-5.4); Red Cell Distribution Width 13.6 % (11.5-14.5); White Blood Count 5.3 K/mm3 (4.5-10.0)
[2021-10-07 06:25] LABS: Anion Gap 4 mmol/L (8-16); Blood Urea Nitrogen 17 mg/dL (7-17); Calcium 8.3 mg/dL (8.4-10.2); Carbon Dioxide 30 mmol/L (22-30); Chloride 100 mmol/L (98-107); Estimated CRCL calculation 53 ml/min; Estimated Glomerular Filt Rate > 60; Glucose 116 mg/dL (65-110); Potassium 3.6 mmol/L (3.4-5.0); Sodium 134 mmol/L (137-145)
[2021-10-07 08:00] VITALS: BP 139/50; PULSE 83; RESP 22; TEMP 36.4; O2SAT 92
[2021-10-07] MEDS: polyethylene glycoL 3350 17 GM POWD.PACK PO (08:59)
[2021-10-07] MEDS: FONDAPARINUX SODIUM 2.5 MG/0.5 ML SYRINGE SUB-Q (09:00)
[2021-10-07] MEDS: MONTELUKAST SODIUM 10 MG TABLET PO (09:00)
[2021-10-07] MEDS: FERROUS SULFATE 324 MG TABLET PO ×2 (09:00→17:34)
[2021-10-07] MEDS: lisinopriL 5 MG TABLET PO (09:00)
[2021-10-07] MEDS: FAMOTIDINE 20 MG TABLET 40 MG PO (09:00)
[2021-10-07] MEDS: SENNA/DOCUSATE SODIUM TABLET 2 TAB PO ×2 (09:00→17:34)
[2021-10-07 12:00] VITALS: BP 125/54; PULSE 98; RESP 22; TEMP 36.1; O2SAT 97
[2021-10-07 16:00] VITALS: BP 156/51; PULSE 88; RESP 28; TEMP 36.9; O2SAT 94
--- NOTE | 2021-10-07 16:49 | PM.IMPN ---
Progress Note: A&P Assessment and Plan (1) Femur fracture: Code(s): S72.90XA - Unspecified fracture of unspecified femur, initial encounter for closed fracture Status: Acute (2) COVID: Code(s): U07.1 - COVID-19 Status: Acute (3) TAISHA (iron deficiency anemia): Code(s): D50.9 - Iron deficiency anemia, unspecified Status: Acute (4) Malignant neoplasm of upper lobe, left bronchus or lung: Code(s): C34.12 - Malignant neoplasm of upper lobe, left bronchus or lung Status: Acute (5) COPD (chronic obstructive pulmonary disease): Code(s): J44.9 - Chronic obstructive pulmonary disease, unspecified Status: Acute (6) Hypertension: Qualifiers: Hypertension type: essential hypertension Qualified Code(s): I10 - Essential (primary) hypertension Code(s): I10 - Essential (primary) hypertension Status: Acute Plan Patient presents with left hip pain after a fall. CT the brain shows areas of prior infarct without acute findings. Cervical spine CT showed no fracture dislocation. Chest x-ray shows left perihilar and upper lobe airspace opacities consistent with scarring and treated malignancy. She was COVID positive. Elbow x-ray was negative for fracture but hip x-ray shows mildly displaced left femoral intratrochanteric fracture. White count slightly low at 4100 possibly related to COVID. Hemoglobin slightly low at 11 and iron studies drawn do confirm iron deficiency anemia. CMP was essentially normal. Urinalysis noted. Urine cultures negative. She was treated with cefazolin as perioperative antibiotic. She was on room air on admission but was placed on oxygen perioperatively. She underwent left hip OR/IF with IT nail on 10/02/21. She remained on 3L post-operatively. CXR showing increasing mild interstitial and subtle airspace opacities in the bilateral lower lung zones c/w edema, atelectasis or PNA. She was fluid positive so she was given Lasix IV with good UOP. Encouraged IS use. Doubt PNA. Could still be COVID related but overall felt her hypoxia was elated to fluid overload and from atelectasis. After the lasix, she wa able to be weaned to room air. Her therapy is progressing slowly. Hgb dropped to 8.3 but better now into the 9 range. Drop in hemoglobin related to recent fracture and/or surgery and/or IV fluids. She is on oral iron which was continued. CRP elevated but felt related to recent surgery and/or COVID. She would benefit from rehab and we are waiting for insurance authorization DVT prophylaxis: Arixtra Code status: Full Subjective Date/time seen: 10/07/21 16:49 Interval history: 85yo female with hx of HTN, COPD and CVA here for left hip after a fall and found to have a left hip fracture and COVID. Patient refused ApneaLink last night. Eating okay. No shortness of breath or chest pain. She denies dysuria or hematuria. No back pain. Exam Narrative: AF 98.4 156/51 88 28 94% room air Gen - NARD Chest -right base inspiratory crackles otherwise clear. CV - RRR S1/S2 with a 2/6 systolic murmur heard loudest in the right upper sternal border Abd - Soft, NT/ND, +BS Ext - left hip dressing is clean, dry and intact. No pedal edema. No majot bruising Psych - Nml mood and affect Skin - Warm and dry Objective Data Vital Signs Vital Signs: Vital Signs - 24 hr 10/06/21 20:00 10/06/21 22:37 10/06/21 23:43 Temperature 97.8 F 97.8 F Pulse Rate 92 91 Respiratory Rate 18 18 Blood Pressure 121/49 L 101/47 L Pulse Oximetry 90 98 90 Oxygen Delivery 10/07/21 04:09 10/07/21 08:00 10/07/21 12:00 Temperature 97.2 F L 97.6 F 97 F L Pulse Rate 89 83 98 Respiratory Rate 18 22 H 22 H Blood Pressure 121/52 L 139/50 L 125/54 L Pulse Oximetry 93 92 97 Oxygen Delivery 10/07/21 08:00 10/07/21 16:00 Temperature 98.4 F Pulse Rate 88 Respiratory Rate 28 H Blood Pressure 156/51 H Pulse Oximetry 94 Oxygen Delivery Room
[2021-10-07] MEDS: HYDROcodone/acetaminophen (*CRX) 5-325 MG TABLET 1 TAB PO (17:37)
[2021-10-07] MEDS: MELATONIN 3 MG TABLET PO (20:59)
[2021-10-07 21:58] VITALS: BP 145/65; PULSE 82; RESP 16; TEMP 36.5; O2SAT 93
[2021-10-08] MEDS: HYDROcodone/acetaminophen (*CRX) 5-325 MG TABLET 1 TAB PO ×2 (05:26→12:34)
[2021-10-08 05:53] VITALS: BP 149/63; PULSE 78; RESP 16; TEMP 36.9; O2SAT 93
[2021-10-08 08:00] VITALS: BP 149/52; PULSE 76; RESP 20; TEMP 36.5; O2SAT 91
[2021-10-08] MEDS: FERROUS SULFATE 324 MG TABLET PO (08:43)
[2021-10-08] MEDS: FONDAPARINUX SODIUM 2.5 MG/0.5 ML SYRINGE SUB-Q (08:43)
[2021-10-08] MEDS: MONTELUKAST SODIUM 10 MG TABLET PO (08:43)
[2021-10-08] MEDS: FAMOTIDINE 20 MG TABLET 40 MG PO (08:43)
[2021-10-08] MEDS: lisinopriL 5 MG TABLET PO (08:43)
[2021-10-08] MEDS: polyethylene glycoL 3350 17 GM POWD.PACK PO (08:44)
[2021-10-08] MEDS: SENNA/DOCUSATE SODIUM TABLET 2 TAB PO (08:44)
--- NOTE | 2021-10-08 10:08 | PM.DS ---
DS: Admitting Diagnosis Discharge Date 10/08/21 Admitting Diagnosis Hip pain after a fall DS: Discharge Diagnosis Discharge Diagnosis (1) Femur fracture: Code(s): S72.90XA - Unspecified fracture of unspecified femur, initial encounter for closed fracture Status: Acute (2) COVID: Code(s): U07.1 - COVID-19 Status: Acute (3) TAISHA (iron deficiency anemia): Code(s): D50.9 - Iron deficiency anemia, unspecified Status: Acute (4) Malignant neoplasm of upper lobe, left bronchus or lung: Code(s): C34.12 - Malignant neoplasm of upper lobe, left bronchus or lung Status: Acute (5) COPD (chronic obstructive pulmonary disease): Code(s): J44.9 - Chronic obstructive pulmonary disease, unspecified Status: Acute (6) Hypertension: Qualifiers: Hypertension type: essential hypertension Qualified Code(s): I10 - Essential (primary) hypertension Code(s): I10 - Essential (primary) hypertension Status: Acute DS: Summary Hospital Course Reason for hospitalization: 85yo female with hx of HTN, COPD and CVA here for left hip after a fall and found to have a left hip fracture and COVID. Please see H&P for details Hospital Course: Patient presented with left hip pain after a fall. CT the brain showed areas of prior infarct without acute findings. Cervical spine CT showed no fractures or dislocation. Chest x-ray showed left perihilar and upper lobe airspace opacities consistent with scarring and treated malignancy. She was COVID positive. Elbow x-ray was negative for fracture but hip x-ray shows mildly displaced left femoral intratrochanteric fracture. White count was slightly low at 4100 possibly related to COVID. Hemoglobin slightly low at 11 and iron studies drawn do confirm iron deficiency anemia. CMP was essentially normal. Urinalysis noted. Urine cultures negative. She was treated with cefazolin as perioperative antibiotic. She was on room air on admission but was placed on oxygen perioperatively. She underwent left hip OR/IF with IT nail on 10/02/21. She remained on 3L post-operatively. Repeat CXR showing increasing mild interstitial and subtle airspace opacities in the bilateral lower lung zones c/w edema, atelectasis or PNA. She was fluid positive so she was given Lasix IV with good UOP. Encouraged IS use. Doubt PNA. Could still be COVID related but overall felt her hypoxia was related to fluid overload and from atelectasis. She was able to be weaned to room air. She worked with therapy and she progressed slowly. Hgb dropped to 8.3 but improved to the 9 range. The drop in hemoglobin related to recent fracture and/or surgery and/or IV fluids. She is on oral iron which was continued. CRP elevated but felt related to recent surgery and/or COVID. She would benefit from rehab and [facility] arranged. She overall did well and was able to be discharged to skilled facility on 10/08/2021. Status at Discharge Cognitive/behavioral status at discharge: Stable Time Spent with Patient Time attestation: Total time spent providing and/or coordinating discharge services: 35 minutes Time spent: Greater than 30 minutes Exam Narrative: Patient developed skin tear noted on her right hand from tape removal. She denies chest pain, shortness of breath or cough. Pain in the left hip worse today. AF 97.7 149/52 76 20 91% room air Gen - NARD Chest -right base inspiratory crackles otherwise clear. CV - RRR S1/S2 with a 2/6 systolic murmur Abd - Soft, NT/ND, +BS Ext - left hip dressing is clean, dry and intact. No pedal edema. Psych - Nml mood and affect Skin - Warm and dry. small dry shallow abrasion to the right hand Discharge Plan Discharge Attending physician on discharge: Bony Ramos Consulting providers: Jean-Paul Ramos Discharging Clinician: Bony Ramos Patient Disposition: SNF Activity: may shower, no driving a
[2021-10-08 12:00] VITALS: BP 135/59; PULSE 74; RESP 24; TEMP 36.4; O2SAT 95
== END 2021-10-08 12:45 | DRG 480 ==
LOC: ANHED 12:53 → ANH3MEDSUR 13:17
PROVIDERS: Nurse Practitioner; Orthopaedic Surgery; Admitting Provider Family Medicine; Emergency Provider Emergency Medicine; PCP Internal Medicine; Visit Provider Internal Medicine
PROC: 0QS734Z Reposition Left Upper Femur with Internal Fixation Device, Percutaneous Approach (ICD-10-PCS; CPT 27245; principal; 2021-10-02 12:30)
DX: S72.142A Displaced intertrochanteric fracture of left femur, initial encounter for closed fracture (principal); U07.1 COVID-19; C34.12 Malignant neoplasm of upper lobe, left bronchus or lung; I42.1 Obstructive hypertrophic cardiomyopathy; J98.11 Atelectasis; S51.011A Laceration without foreign body of right elbow, initial encounter; W18.30XA Fall on same level, unspecified, initial encounter; J44.9 Chronic obstructive pulmonary disease, unspecified; E87.70 Fluid overload, unspecified; I10 Essential (primary) hypertension; D50.9 Iron deficiency anemia, unspecified; R09.02 Hypoxemia; E03.9 Hypothyroidism, unspecified; I34.0 Nonrheumatic mitral (valve) insufficiency; M19.90 Unspecified osteoarthritis, unspecified site; M81.0 Age-related osteoporosis without current pathological fracture; E21.5 Disorder of parathyroid gland, unspecified; Z96.652 Presence of left artificial knee joint; Z86.73 Personal history of transient ischemic attack (TIA), and cerebral infarction without residual deficits; Z87.891 Personal history of nicotine dependence
CPT/HCPCS: 36415; 70450; 71045; 71046; 72125; 73080; 73502; 80048; 80053; 80069; 81001; 82728; 82948; 83540; 83550; 83615; 83735; 83880; 85014; 85018; 85025; 85027; 85610; 85730; 86140; 87086; 87088; 90471; 90715; 93005; 93306; 96361; 96374; 96375; 96376; 97110; 97161; 97165; 97530; 97535; 99285; A9270; C1713; C9803; G0378; J0690; J1100; J1652; J1940; J2270; J2405; J2704; J3010; J3480; J7030; J7040; J7120; U0003; U0005

== ENCOUNTER 2021-10-21 16:00 | Inpatient (IN) | payer MEDICARE, MEDICAID, SELFPAY ==
[2021-10-21] VITALS (30 sets, daily range): BP systolic 98–136; BP diastolic 47–70; PULSE 73–102; RESP 12–26; TEMP 35.9–36.5; O2SAT 91–100
[2021-10-21 16:51] LABS: Basophils Percent Auto 0.5 % (0.2-1.2); Eosinophils Absolute Auto 0.2 K/mm3 (0-0.3); Eosinophils Percent Auto 2.3 % (0-4.4); Hematocrit 21.9 % (37.0-47.0); Immature Granulocyte Absolute 0.03 K/mm3 (0.00-0.031); Immature Granulocyte Percent A 0.4 % (0-0.5); Lymphocytes Absolute Auto 0.62 K/mm3 (0.9-3.2); Lymphocytes Percent Auto 8.5 % (18.3-44.2); Mean Corpuscular HGB Conc 29.7 g/dl (32-36); Mean Corpuscular Hemoglobin 26.1 pg (26-34); Mean Platelet Volume 9.4 fl (7.4-10.4); Monocytes Absolute Auto 0.7 K/mm3 (0.1-0.6); Monocytes Percent Auto 9.3 % (2.6-8.5); Neutrophils Absolute Auto 5.8 K/mm3 (1.3-6.7); Platelet Count Result 419 k/mm3 (150-375); Red Blood Count 2.49 M/mm3 (4.2-5.4); Red Cell Distribution Width 15.9 % (11.5-14.5); White Blood Count 7.3 K/mm3 (4.5-10.0)
[2021-10-21 17:01] LABS: Alanine Aminotransferase 11 U/L (6-35); Albumin Level 3.3 g/dL (3.5-5.1); Alkaline Phosphatase 90 U/L (38-126); Anion Gap 8 mmol/L (8-16); Aspartate Amino Transferase 17 U/L (14-36); Bilirubin,Total 0.5 mg/dL (0.2-1.3); Blood Urea Nitrogen 31 mg/dL (7-17); Carbon Dioxide 24 mmol/L (22-30); Chloride 99 mmol/L (98-107); Estimated CRCL calculation 27 ml/min; Estimated Glomerular Filt Rate 47; Glucose 124 mg/dL (65-110); Potassium 4.2 mmol/L (3.4-5.0); Sodium 131 mmol/L (137-145)
[2021-10-21 17:07] LABS: INR 1.2; Prothrombin Time 14.7 Seconds (11.1-14.7)
[2021-10-21 17:08] LABS: Hemoglobin 6.5 g/dL (12.0-15.0); Partial Thromboplastin Time 37.6 SECONDS (22.3-36.8)
[2021-10-21 17:09] LABS: Anisocytosis 1+ (NORMAL); Hypochromasia 1+ (NORMAL); Ovalocytes 1+ (NORMAL); Platelet Estimate Increased (Adequate)
[2021-10-21] MEDS: SODIUM CHLORIDE 0.9% IV 250 ML 30 ML IV CONT (18:35)
--- NOTE | 2021-10-21 18:37 | ED.GENADULT ---
HPI - General Adult General Chief complaint: Recheck/Abnormal Lab/Rx Stated complaint: ABN LABS History of Present Illness HPI narrative: Patient is an 85-year-old female who presents to the ER with abnormal outpatient lab work. Patient had a low hemoglobin and was sent in for further evaluation. Patient denies dark black stools or blood in stool however she does not look at it as she is currently in [facility] and they clean her. She did recently have her left hip repaired after a fall. She denies any epigastric discomfort or reflux. Related Data Home Medications Medication Instructions Recorded Confirmed acetaminophen 500 mg tablet 500 mg PO Q6H PRN Pain (Scale 07/31/19 10/01/21 (Tylenol Extra Strength) Score 1-3) ascorbate calcium (vitamin C) 500 500 mg PO DAILY 06/16/21 10/01/21 mg tablet ferrous sulfate 325 mg (65 mg 325 mg PO BID 06/16/21 10/01/21 iron) tablet cetirizine 10 mg tablet (Zyrtec) 10 mg PO DAILY 06/24/21 10/01/21 melatonin 1 mg tablet 1 mg PO QHS 08/27/21 10/01/21 polyethylene glycol 3350 17 gram 17 g PO DAILY 08/27/21 10/01/21 oral powder packet (Miralax) lisinopril 5 mg tablet 5 mg PO DAILY 10/01/21 10/01/21 Allergies Allergy/AdvReac Type Severity Reaction Status Date / Time atenolol Allergy Severe BLURRED Verified 09/15/21 10:05 VISION fenofibrate Allergy Severe GERNERAL Verified 09/15/21 10:05 MUSCLE PAIN methylprednisolone Allergy Severe ANXIETY Verified 09/15/21 10:05 BLURRED VISION naproxen Allergy Severe CHEST PAINS Verified 09/15/21 10:05 Quinolones Allergy Severe BLURRED Verified 09/15/21 10:05 VISION cefuroxime Allergy Mild Nausea and Verified 09/15/21 10:05 Vomiting clarithromycin Allergy Mild Nausea Verified 09/15/21 10:05 iodine Allergy Mild Nausea,WEAK Verified 09/15/21 10:05 NESS celecoxib Allergy Unknown ABD. Verified 09/15/21 10:05 PAIN/DIZZINESS/NAUSEA erythromycin base Allergy Unknown UNKNOWN Verified 09/15/21 10:05 hydrocodone Allergy Unknown CONFUSION/A Verified 09/15/21 10:05 NXIOUS NSAIDS (Non-Steroidal Allergy Unknown FEELS LIKE Verified 09/15/21 10:05 Anti-Inflamma LOSS OF LIFE oxycodone Allergy Unknown REALLY Verified 09/15/21 10:05 PUTS ME IN OUTER SPACE simvastatin Allergy Unknown CONFUSION Verified 09/15/21 10:05 FROM STATINS butorphanol Allergy Unknown Verified 09/15/21 10:05 cephalexin [From Keflex] Allergy Unknown Verified 09/15/21 10:05 doxycycline Allergy Unknown Verified 09/15/21 10:05 Macrolide Antibiotics Allergy Unknown Verified 09/15/21 10:05 risedronate sodium Allergy Unknown Verified 09/15/21 10:05 acetaminophen [From Vicodin] AdvReac Unknown Verified 09/15/21 10:05 AZELASTINE HCL Allergy Mild BLURRED Uncoded 09/15/21 10:05 VISION FEXOFENADINE HCL Allergy Mild BLURRED Uncoded 09/15/21 10:05 VISION MEDROXYPROGESTERONE ACETATE Allergy Mild Unknown Uncoded 09/15/21 10:05 PSEUDOEPHEDRINE HCL Allergy Mild BLURRED Uncoded 09/15/21 10:05 VISION Contrast Media Allergy Unknown COULD Uncoded 09/15/21 10:05 TAST FOR 3 DAYS ; CONFUSION MOXIFLOXACIN HCL Allergy Unknown UNKNOWN Uncoded 09/15/21 10:05 Review of Systems Review of Systems: All systems reviewed & are unremarkable except as noted in HPI and below Constitutional: Constitutional: Denies chills, Reports fatigue and Denies fever(s) Cardiovascular: Cardiovascular: Denies chest pain, Denies rapid heart rate and Denies radiating jaw, neck or arm pain Respiratory: Respiratory: Denies cough and Denies dyspnea Gastrointestinal: Gastrointestinal: Denies abdominal pain, Denies heartburn, Denies diarrhea, Denies nausea and Denies vomiting Musculoskeletal: Musculoskeletal: Denies myalgias and Denies arthralgias [facility] Past Medical History Medical History (Updated 10/21/21 @ 18:54 by Mauri Espino MD) Anemia Angiodysplasia of gastrointestinal tract Anxiety Cardiomyopathy Catara
[2021-10-21 19:47] LABS: SARS-CoV-2 RNA PCR Negative
--- NOTE | 2021-10-21 20:10 | PM.IMHP ---
H&P: HPI History of Present Illness Date/Time: 10/21/21 20:10 Chief Complaint: Generalized weakness Narrative: Patient is an 85-year-old female with a past medical history of hip replacement, CVA, heart failure, lung mass who presented to the ED for abnormal labs. Patient stated that she has not been feeling very good lately. She did have surgery on her hip 2 weeks ago when she had fallen. She also stated that she has been having issues urinating and feels like she can not go and then when she does go it eckert really bad. She denies any chest pain, shortness of breath, nausea, vomiting, diarrhea, visual changes, hearing changes, syncope, lightheadedness or dizziness. She did state that she has been work with PT and OT and has been doing pretty well and stated that she finally got to have it. She also stated that she has been weaker and more fatigued lately. She denies any abdominal pain however she did state that she did realize her stool was black until they told her in the ED. she did state that she has had some constipation however that is probably from the pain medications. Hemoglobin hematocrit were noted to be 6.5/21.9. She was given 2 units of PRBC. Anemia labs will be drawn in the morning. Patient has been taking ferrous sulfate supplementation. Guaiac stool came back positive. GI has been consulted. Patient is being admitted to the hospital service under observation Review of Systems Review of Systems: All systems reviewed & are unremarkable except as noted in HPI and below PMFSH Past Medical History Medical History (Updated 10/21/21 @ 21:31 by RAFAELA Seals) Anxiety Arthritis of right glenohumeral joint Cardiomyopathy Cataract COPD (chronic obstructive pulmonary disease) COVID CVA (cerebral vascular accident) Eczema Hypertension Hypothyroidism Malignant neoplasm of upper lobe, left bronchus or lung Completed radiation therapy in 2020 Osteoarthritis Osteoporosis Parathyroid disorder Pulmonary nodule Symptomatic anemia Tobacco abuse Surgical History Surgical History H/O dilation and curettage 2008 H/O removal of cyst Under left armpit History of knee joint replacement Left 2009 Family History Family History Sibling Family history of coronary artery disease Father Respiratory failure Mother Breast cancer Son Myositis ossificans progressiva Other Family history of arthritis Family history of cardiovascular disease Family history of chronic obstructive pulmonary disease Hypertension Social History Social History (Updated 10/21/21 @ 21:25 by RAFAELA Seals) Social History: The patient lives in an apartment building by herself. She is . She is retired. She is a former smoker. She denies any alcohol or illicit drugs. Timur and rashid dunbar will be her surrogate. 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
[2021-10-22 00:56] VITALS: BP 124/63; PULSE 88; RESP 10; TEMP 36.2; O2SAT 98
[2021-10-22 06:00] VITALS: BP 135/59; PULSE 88; RESP 16; TEMP 36.2; O2SAT 96
[2021-10-22 06:01] LABS: Basophils Percent Auto 0.5 % (0.2-1.2); Eosinophils Absolute Auto 0.2 K/mm3 (0-0.3); Hematocrit 28.9 % (37.0-47.0); Hemoglobin 8.7 g/dL (12.0-15.0); Immature Granulocyte Absolute 0.02 K/mm3 (0.00-0.031); Immature Granulocyte Percent A 0.4 % (0-0.5); Lymphocytes Absolute Auto 0.42 K/mm3 (0.9-3.2); Lymphocytes Percent Auto 7.5 % (18.3-44.2); Mean Corpuscular HGB Conc 30.1 g/dl (32-36); Mean Corpuscular Hemoglobin 26.7 pg (26-34); Mean Corpuscular Volume 88.7 fl (80-100); Mean Platelet Volume 9.4 fl (7.4-10.4); Monocytes Absolute Auto 0.6 K/mm3 (0.1-0.6); Monocytes Percent Auto 11.4 % (2.6-8.5); Neutrophils Absolute Auto 4.3 K/mm3 (1.3-6.7); Neutrophils Percent Auto 77.2 % (45.5-73.1); Platelet Count Result 370 k/mm3 (150-375); Red Blood Count 3.26 M/mm3 (4.2-5.4); Red Cell Distribution Width 15.9 % (11.5-14.5); White Blood Count 5.6 K/mm3 (4.5-10.0)
[2021-10-22 06:26] LABS: Alanine Aminotransferase 10 U/L (6-35); Albumin Level 3.1 g/dL (3.5-5.1); Alkaline Phosphatase 80 U/L (38-126); Anion Gap 11 mmol/L (8-16); Aspartate Amino Transferase 17 U/L (14-36); Bilirubin,Total 1.6 mg/dL (0.2-1.3); Blood Urea Nitrogen 24 mg/dL (7-17); Carbon Dioxide 23 mmol/L (22-30); Chloride 101 mmol/L (98-107); Estimated CRCL calculation 37 ml/min; Estimated Glomerular Filt Rate > 60; Glucose 89 mg/dL (65-110); Magnesium 1.8 mg/dL (1.6-2.3); Potassium 3.6 mmol/L (3.4-5.0); Sodium 135 mmol/L (137-145)
[2021-10-22 08:00] VITALS: BP 120/64; PULSE 85; RESP 16; TEMP 36.2; O2SAT 100
[2021-10-22] MEDS: PANTOPRAZOLE SODIUM IV 40 MG VIAL IV PUSH ×2 (08:25→20:12)
[2021-10-22] MEDS: lisinopriL 5 MG TABLET PO (08:25)
--- NOTE | 2021-10-22 09:00 | PM.IMPN ---
Progress Note: A&P Assessment and Plan (1) GI bleed: Code(s): K92.2 - Gastrointestinal hemorrhage, unspecified Status: Acute Assessment and Plan: Current H/H is 8.7/28.9 H&H upon arrival 6.5/21.9 hemoglobin/hematocrit q.6 hours. transfuse if H&H is below 7 2 units of packed red blood cells transfused on 10/21/2021 GI consult thank you for your help Pantoprazole BID Diet: NPO DVT Px: SCDs (2) Symptomatic anemia: Code(s): D64.9 - Anemia, unspecified Status: Acute Assessment and Plan: Current H/H is 8.7/28.9 H&H 6.5/21.9 H&H q.6 hour 2 units of packed red blood cells transfused 10/21/21 Continue to trend labs Transfuse as indicated Probably a combination of acute blood loss anemia, and iron deficiency anemia Anemia labs continue home iron supplement Consider oncology (3) Hypertension: Qualifiers: Hypertension type: essential hypertension Qualified Code(s): I10 - Essential (primary) hypertension Code(s): I10 - Essential (primary) hypertension Status: Acute Assessment and Plan: BP currently 120/64 Continue home lisinopril 5mg PO daily Trend BP Adjust therapy as indicated (4) COPD (chronic obstructive pulmonary disease): Code(s): J44.9 - Chronic obstructive pulmonary disease, unspecified Status: Acute Assessment and Plan: Continue home Singulair Neb treatments on board monitor SPO2 and respiratory status Adjust therapy as indicated Time Spent With Patient Time with patient: Greater than 35 minutes Subjective Date/time seen: 10/22/21899 Interval history: 10/22/21899 Patient was sitting in the chair today. She seemed to be little exhausted. She did state that she was very weak and tired today. She also stated that she knew she has severe anemia and that she was was get iron infusions hematology was wait on a CT. Iron does remain low according to anemia labs on the . Will repeat iron levels. Consider iron infusion. Patient currently denies any chest pain, shortness breast, nausea, vomiting, diarrhea, constipation. She did state that she is weak and tired. PT and OT did work with the patient however she seems to be very behind with her therapy. 30 minutes spent talking to the her grand daughter about current plan, and past medical history. 10/21/21? 20:10 Patient is an 85-year-old female with a past medical history of hip replacement, CVA, heart failure, lung mass who presented to the ED for abnormal labs.? Patient stated that she has not been feeling very good lately.? She did have surgery on her hip 2 weeks ago when she had fallen.? She also stated that she has been having issues urinating and feels like she can not go and then when she does go it eckert really bad.? She denies any chest pain, shortness of breath, nausea, vomiting, diarrhea, visual changes, hearing changes, syncope, lightheadedness or dizziness.? She did state that she has been work with PT and OT and has been doing pretty well and stated that she finally got to have it.? She also stated that she has been weaker and more fatigued lately.? She denies any abdominal pain however she did state that she did realize her stool was black until they told her in the ED. she did state that she has had some constipation however that is probably from the pain medications.? Hemoglobin hematocrit were noted to be 6.5/21.9.? She was given 2 units of PRBC.? Anemia labs will be drawn in the morning.? Patient has been taking ferrous sulfate supplementation.? Guaiac stool came back positive.? GI has been consulted. Review of Systems Review of Systems: All systems reviewed & are unremarkable except as noted in HPI and below Exam Const: General: cooperative, no acute distress, well developed, alert, awake, ill appearing and tired appearing Nutritional Appearance: well nourished Orientation/con
[2021-10-22 10:41] VITALS: BMI 25.0
[2021-10-22 12:59] LABS: Transferrin 170 mg/dL (206-381)
[2021-10-22 13:06] LABS: Immature Reticulocyte Fraction 30.9 % (3.0-15.9); Reticulocyte Hemoglobin Conten 22.4 pg (28.2-35.7); Reticulocyte Percent 2.73 % (0.7-4.3); Reticulocytes Absolute 0.09 B/L (32.2-175.7)
[2021-10-22 13:29] LABS: Iron 18 ug/dL (37-170)
[2021-10-22 13:38] LABS: Percent Iron Saturation 6 % (20-50)
[2021-10-22 14:04] LABS: Folic Acid 7.3 ng/mL (2.76->20); Vitamin B12 > 1000.0 pg/mL (239-931)
--- NOTE | 2021-10-22 16:34 | PC.NURSE ---
Pt's granddaughter gave me a note with various information and concerns that she wanted addressed including: Primary Doctor is now Dr. Monsivais and last visit was on 09/15/21; pt sees Dr. Reyez and last visit was 09/10; pt had lab work done on 09/30 and per pt's granddaughter pt needs an iron infusion as her lat one was in January 2021; pt's granddaughter is also concerned about pt's pupils since a friend who is allegedly a nurse told her at some point in the past that pt's pupils were very small however I confirmed that this is a chronic issue and not related to pt's current hospital admission.
--- NOTE | 2021-10-22 17:55 | WPDGICN ---
Assessment and Plan Assessment and plan (1) Acute on chronic blood loss anemia: Code(s): D62 - Acute posthemorrhagic anemia Status: Acute Assessment and Plan: she has chronic anemia and is seeing hematology as outpatient remote history of avm but last egd and colonoscopy 2019 did not find any probably also anemia affected by recent hip surgery patient at this point prefers only conservative treatment and avoid scopes if possible continue with protonix for now, if obvious overt gib then will reassess again (2) Occult blood in stools: Code(s): R19.5 - Other fecal abnormalities Status: Acute Assessment and Plan: monitor (3) GI bleed: Code(s): K92.2 - Gastrointestinal hemorrhage, unspecified Status: Acute Assessment and Plan: check h/h s/p transfusion (4) Malignant neoplasm of upper lobe, left bronchus or lung: Code(s): C34.12 - Malignant neoplasm of upper lobe, left bronchus or lung Status: Inactive (5) Femur fracture: Code(s): S72.90XA - Unspecified fracture of unspecified femur, initial encounter for closed fracture Status: Inactive (6) COPD (chronic obstructive pulmonary disease): Code(s): J44.9 - Chronic obstructive pulmonary disease, unspecified Status: Acute GI Consult Note Consult date/time: 10/22/21 17:55 Reason for consult: acute on chronic anemia HPI: Mercy Dobbs is a 85 year old female with past medical history of recent hip replacement, CVA, heart failure, chronic anemia seeing hematology as outpatient. She has been feeling lately more fatigue than usual after working with physical therapy because her hip surgery. 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 ER evaluation showed hemoglobin 6.5 (baseline 8-9), no obvious dark stool but positive occult blood.? She was given 2 units of PRBC.? Patient has been taking ferrous sulfate supplementation.? She is comfortable now and does not want scopes. Review of Systems Review of Systems: All systems reviewed & are unremarkable except as noted in HPI and below Constitutional: Constitutional: Denies chills, Reports fatigue and Denies fever(s) Eyes: Eyes: Denies blurry vision ENT: Reports Normal hearing present Cardiovascular: Cardiovascular: Denies chest pain, Denies rapid heart rate and Denies radiating jaw, neck or arm pain Respiratory: Respiratory: Denies cough and Denies dyspnea Gastrointestinal: Gastrointestinal: Denies abdominal pain, Denies heartburn, Denies diarrhea, Denies nausea and Denies vomiting Musculoskeletal: Musculoskeletal: Denies myalgias and Denies arthralgias Neurologic: Denies Abnormal speech present Psychiatric: Psychiatric: Denies behavioral changes [facility] Past Medical History Medical History (Updated 10/22/21 @ 18:03 by Naresh Masterson MD) Acute on chronic blood loss anemia Anxiety Arthritis of right glenohumeral joint Cardiomyopathy Cataract COPD (chronic obstructive pulmonary disease) COVID CVA (cerebral vascular accident) Eczema Hypertension Hypothyroidism Malignant neoplasm of upper lobe, left bronchus or lung Completed radiation therapy in 2020 Occult blood in stools Osteoarthritis Osteoporosis Parathyroid disorder Pulmonary nodule Symptomatic anemia Tobacco abuse Surgical History Surgical History H/O dilation and curettage 2008 H/O removal of cyst Under left armpit History of knee joint replacement Left 2009 Family History Family History Sibling Family history of coronary artery disease Father Respiratory failure Mother Breast cancer Son Myositis ossificans progressiva Other Family history of arthritis Family history of cardiovascular disease Family history of chronic obstructive pulmonary disea
[2021-10-22] MEDS: MONTELUKAST SODIUM 10 MG TABLET PO (20:12)
[2021-10-22 22:00] VITALS: BP 92/50; PULSE 86; RESP 16; TEMP 36.4; O2SAT 99
[2021-10-22] MEDS: traMADol HCL (*CRX) 25 MG TABLET PO (22:01)
[2021-10-23] MEDS: fentaNYL CITRATE INJ (*CRX) 100 MCG/2 ML VIAL 50 MCG IV PUSH (01:32)
[2021-10-23] MEDS: traMADol HCL (*CRX) 25 MG TABLET PO ×3 (04:58→20:55)
[2021-10-23 06:00] VITALS: BP 125/59; PULSE 81; RESP 16; TEMP 36.3; O2SAT 99
[2021-10-23 07:41] LABS: Appearance Urine Cloudy (Clear); Bilirubin Urine Negative (Negative); Blood Urine 2+ (Negative); Color Urine Yellow (Yellow); Glucose Urine UA Negative (Negative); Ketones Urine Trace mg/dL (Negative); Leukocyte Esterase Ur 3+ LEU/UL (Negative); Nitrate Urine Positive (Negative); Protein Urine 1+ mg/dL (Negative); Specific Grav Ur 1.015 (1.001-1.035); Urobilinogen Urine 0.2 mg/dL (<2.0); pH Urine 5.5 (5.0-9.0)
[2021-10-23 07:49] LABS: Mucus Urine Rare /lpf; Squamous Epithelial Cell Urine Rare /hpf (Few); WBC Clumps Urine Present /HPF; WBC Urine >75 /hpf
[2021-10-23 07:51] LABS: Add Urine Microscopic? YES; Bacteria Urine 1+ /hpf
[2021-10-23] MEDS: lisinopriL 5 MG TABLET PO (09:16)
[2021-10-23] MEDS: PANTOPRAZOLE SODIUM IV 40 MG VIAL IV PUSH ×2 (09:16→20:52)
--- NOTE | 2021-10-23 12:15 | PM.IMPN ---
Progress Note: A&P Assessment and Plan (1) GI bleed: Code(s): K92.2 - Gastrointestinal hemorrhage, unspecified Status: Acute Assessment and Plan: Current H/H is 8.1/26.5 H&H upon arrival 6.5/21.9 transfuse if H&H is below 7 2 units of packed red blood cells transfused on 10/21/2021 GI consult thank you for your help Not wanting any further invasive procedures for now Pantoprazole BID Diet: NPO DVT Px: SCDs (2) Symptomatic anemia: Code(s): D64.9 - Anemia, unspecified Status: Acute Assessment and Plan: Current H/H is 8.1/26.5 H&H 6.5/21.9 H&H q.6 hour 2 units of packed red blood cells transfused 10/21/21 Continue to trend labs Transfuse as indicated Probably a combination of acute blood loss anemia, and iron deficiency anemia Anemia labs iron 18, TIBC 278,% saturation 6, transferrin 170, ferritin 88, B12 greater than 1000, folate 7.3 continue home iron supplement Iron infusion x 1 (3) Hypertension: Qualifiers: Hypertension type: essential hypertension Qualified Code(s): I10 - Essential (primary) hypertension Code(s): I10 - Essential (primary) hypertension Status: Acute Assessment and Plan: BP currently 131/58 Continue home lisinopril 5mg PO daily Trend BP Adjust therapy as indicated (4) COPD (chronic obstructive pulmonary disease): Code(s): J44.9 - Chronic obstructive pulmonary disease, unspecified Status: Acute Assessment and Plan: Continue home Singulair Neb treatments on board monitor SPO2 and respiratory status Adjust therapy as indicated Time Spent With Patient Time with patient: Greater than 35 minutes Subjective Date/time seen: 10/23/21 1215 Interval history: 10/23/21 121 Patient was laying in bed. She has been tolerating food. H/H remains stable. She is ready to go back to rehab. She does not want any scopes at this time. She denies any chest pain, shortness of breath, nausea, vomiting, diarrhea, constipation. Will give an iron transfusion. 10/22/21 0900 Patient was sitting in the chair today. She seemed to be little exhausted. She did state that she was very weak and tired today. She also stated that she knew she has severe anemia and that she was was get iron infusions hematology was wait on a CT. Iron does remain low according to anemia labs on the 5th. Will repeat iron levels. Consider iron infusion. Patient currently denies any chest pain, shortness breast, nausea, vomiting, diarrhea, constipation. She did state that she is weak and tired. PT and OT did work with the patient however she seems to be very behind with her therapy. 30 minutes spent talking to the her grand daughter about current plan, and past medical history. 10/21/21? 20:10 Patient is an 85-year-old female with a past medical history of hip replacement, CVA, heart failure, lung mass who presented to the ED for abnormal labs.? Patient stated that she has not been feeling very good lately.? She did have surgery on her hip 2 weeks ago when she had fallen.? She also stated that she has been having issues urinating and feels like she can not go and then when she does go it eckert really bad.? She denies any chest pain, shortness of breath, nausea, vomiting, diarrhea, visual changes, hearing changes, syncope, lightheadedness or dizziness.? She did state that she has been work with PT and OT and has been doing pretty well and stated that she finally got to have it.? She also stated that she has been weaker and more fatigued lately.? She denies any abdominal pain however she did state that she did realize her stool was black until they told her in the ED. she did state that she has had some constipation however that is probably from the pain medications.? Hemoglobin hematocrit were noted to be 6.5/21.9.? She was given 2 units of PRBC.? Anemia labs will be drawn in the
--- NOTE | 2021-10-23 12:15 | P.PNIM_ITS ---
Progress Note: A&P Assessment and Plan (1) GI bleed: Code(s): K92.2 - Gastrointestinal hemorrhage, unspecified Status: Acute Assessment and Plan: * Current H/H is 8.1/26.5 * H&H upon arrival 6.5/21.9 * transfuse if H&H is below 7 * 2 units of packed red blood cells transfused on 10/21/2021 * GI consult thank you for your help * Not wanting any further invasive procedures for now * Pantoprazole BID * Diet: NPO * DVT Px: SCDs (2) Symptomatic anemia: Code(s): D64.9 - Anemia, unspecified Status: Acute Assessment and Plan: * Current H/H is 8.1/26.5 * H&H 6.5/.9 * H&H q.6 hour * 2 units of packed red blood cells transfused 10/21/21 * Continue to trend labs * Transfuse as indicated * Probably a combination of acute blood loss anemia, and iron deficiency anemia * Anemia labs iron 18, TIBC 278,% saturation 6, transferrin 170, ferritin 88, B12 greater than 1000, folate 7.3 * continue home iron supplement * Iron infusion x 1 (3) Hypertension: Qualifiers: Hypertension type: essential hypertension Qualified Code(s): I10 - Essential (primary) hypertension Code(s): I10 - Essential (primary) hypertension Status: Acute Assessment and Plan: * BP currently 131/58 * Continue home lisinopril 5mg PO daily * Trend BP * Adjust therapy as indicated (4) COPD (chronic obstructive pulmonary disease): Code(s): J44.9 - Chronic obstructive pulmonary disease, unspecified Status: Acute Assessment and Plan: * Continue home Singulair * Neb treatments on board * monitor SPO2 and respiratory status * Adjust therapy as indicated Time Spent With Patient Time with patient: Greater than 35 minutes Subjective Date/time seen: 10/23/21 1215 Interval history: 10/23/21 121 Patient was laying in bed. She has been tolerating food. H/H remains stable. She is ready to go back to rehab. She does not want any scopes at this time. She denies any chest pain, shortness of breath, nausea, vomiting, diarrhea, constipation. Will give an iron transfusion. 10/22/21 0900 Patient was sitting in the chair today. She seemed to be little exhausted. She did state that she was very weak and tired today. She also stated that she knew she has severe anemia and that she was was get iron infusions hematology was wait on a CT. Iron does remain low according to anemia labs on the . Will repeat iron levels. Consider iron infusion. Patient currently denies any chest pain, shortness breast, nausea, vomiting, diarrhea, constipation. She did state that she is weak and tired. PT and OT did work with the patient however she seems to be very behind with her therapy. 30 minutes spent talking to the her grand daughter about current plan, and past medical history. 10/21/21? 20:10 Patient is an 85-year-old female with a past medical history of hip replacement, CVA, heart failure, lung mass who presented to the ED for abnormal labs.? Patient stated that she has not been feeling very good lately.? She did have surgery on her hip 2 weeks ago when she had fallen.? She also stated that she has been having issues urinating and feels like she can not go and then when she does go it eckert really bad.? She denies any chest pain, shortness of breath, nausea, vomiting, diarrhea, visual changes, hearing changes, syncope, lightheadedness or dizziness.? She did state that she has been work with PT and
[2021-10-23 14:00] VITALS: BP 131/58; PULSE 88; RESP 16; TEMP 36.4; O2SAT 98
[2021-10-23 15:38] LABS: Basophils Percent Auto 0.5 % (0.2-1.2); Eosinophils Absolute Auto 0.2 K/mm3 (0-0.3); Eosinophils Percent Auto 2.9 % (0-4.4); Hematocrit 27.6 % (37.0-47.0); Hemoglobin 8.4 g/dL (12.0-15.0); Immature Granulocyte Absolute 0.02 K/mm3 (0.00-0.031); Immature Granulocyte Percent A 0.3 % (0-0.5); Lymphocytes Absolute Auto 0.47 K/mm3 (0.9-3.2); Lymphocytes Percent Auto 7.6 % (18.3-44.2); Mean Corpuscular HGB Conc 30.4 g/dl (32-36); Mean Corpuscular Hemoglobin 26.6 pg (26-34); Mean Corpuscular Volume 87.3 fl (80-100); Mean Platelet Volume 9.1 fl (7.4-10.4); Monocytes Absolute Auto 0.8 K/mm3 (0.1-0.6); Monocytes Percent Auto 12.8 % (2.6-8.5); Neutrophils Absolute Auto 4.7 K/mm3 (1.3-6.7); Neutrophils Percent Auto 75.9 % (45.5-73.1); Platelet Count Result 339 k/mm3 (150-375); Red Blood Count 3.16 M/mm3 (4.2-5.4); Red Cell Distribution Width 15.9 % (11.5-14.5); White Blood Count 6.2 K/mm3 (4.5-10.0)
[2021-10-23 15:53] LABS: Alanine Aminotransferase 10 U/L (6-35); Albumin Level 3.1 g/dL (3.5-5.1); Alkaline Phosphatase 81 U/L (38-126); Anion Gap 9 mmol/L (8-16); Aspartate Amino Transferase 15 U/L (14-36); Bilirubin,Total 0.9 mg/dL (0.2-1.3); Blood Urea Nitrogen 16 mg/dL (7-17); Calcium 8.8 mg/dL (8.4-10.2); Carbon Dioxide 23 mmol/L (22-30); Chloride 101 mmol/L (98-107); Estimated CRCL calculation 48 ml/min; Estimated Glomerular Filt Rate > 60; Glucose 103 mg/dL (65-110); Potassium 3.8 mmol/L (3.4-5.0); Sodium 133 mmol/L (137-145)
[2021-10-23] MEDS: IRON SUCROSE COMPLEX 200 MG in SODIUM CHLORIDE 0.9% IV 50 ML 120 MG IVPB (16:25)
[2021-10-23] MEDS: FERROUS SULFATE 324 MG TABLET PO (16:26)
--- NOTE | 2021-10-23 16:33 | WPDGIPROGNO ---
Progress Note: A&P Assessment and Plan (1) Acute on chronic blood loss anemia: Code(s): D62 - Acute posthemorrhagic anemia Status: Acute Assessment and Plan: h/h stable probably could be multifactorial egd and colonoscopy 2020 negative for active bleeding patient prefers conservative treatment, also had recent hip surgery that can explain part of anemia ok to discharge (2) Occult blood in stools: Code(s): R19.5 - Other fecal abnormalities Status: Acute (3) Femur fracture: Code(s): S72.90XA - Unspecified fracture of unspecified femur, initial encounter for closed fracture Status: Inactive Assessment and Plan: recovering (4) Malignant neoplasm of upper lobe, left bronchus or lung: Code(s): C34.12 - Malignant neoplasm of upper lobe, left bronchus or lung Status: Inactive Subjective Date/time seen: 10/23/21 16:33 Interval history: no changes, still weak, no signs of gib Review of Systems Review of Systems: All systems reviewed & are unremarkable except as noted in HPI and below Exam Const: General: cooperative, no acute distress, alert, awake, ill appearing and tired appearing Orientation/consciousness: oriented to person, oriented to place, oriented to time and patient oriented x3 HENMT: Head: normal to inspection Ears: hearing grossly normal bilaterally Eyes: General: appearance normal, both eyes and all related structures Neck: Neck: normal visual inspection, full ROM, trachea midline and supple Chest: Chest palpation & inspection: normal inspection of the chest Resp: Effort & Inspection: normal respiratory effort and able to speak in complete sentences Auscultation: clear to auscultation bilaterally Cardio: Jugular venous distension: no JVD Rate: regular rate Rhythm: regular rhythm Heart sounds: Murmur heart sound present GI: Inspection: normal to inspection Auscultation: normal bowel sounds Skin: General skin exam: no rashes or lesions noted and pallor Lesions: no lesions Rashes: no rashes Neuro: General: oriented to person, oriented to place, oriented to time and patient oriented x3 Speech: normal speech Extrem: Other: s/p hip surgery Psych: Appearance: grossly normal Objective Data Vital Signs Vital Signs: Vital Signs - 24 hr 10/22/21 20:00 10/22/21 22:00 10/23/21 06:00 Temperature 97.5 F L 97.3 F L Pulse Rate 86 81 Respiratory Rate 16 16 Blood Pressure 92/50 L 125/59 L Pulse Oximetry 99 99 Oxygen Delivery Room Air 10/23/21 09:16 10/23/21 14:00 Temperature 97.5 F L Pulse Rate 88 Respiratory Rate 16 Blood Pressure 131/58 L Pulse Oximetry 98 Oxygen Delivery Room Air Intake/Output Intake/Output: Intake & Output 10/20/21 10/21/21 10/22/21 10/23/21 23:59 23:59 23:59 23:59 Intake Total 350 1677 790 Balance 350 1677 790 Meds/Results Medications: Active Medications Generic Name Dose Route Start Last Admin Trade Name Freq PRN Reason Stop Dose Admin Fentanyl Citrate 50 mcg 10/21/21 18:02 10/23/21 01:32 Fentanyl Citrate Inj (*Crx) 100 Mcg/2 Ml Vial IV PUSH 50 mcg Q2H PRN Administration Pain Rated 7-10 Ferrous Sulfate 324 mg 10/23/21 17:00 10/23/21 16:26 Ferrous Sulfate 324 Mg Tablet PO 324 mg BIDWM ESTRELLA Administration Lisinopril 5 mg 10/22/21 09:00 10/23/21 09:16 Lisinopril 5 Mg Tablet PO 5 mg DAILY ESTRELLA Administration Melatonin 3 mg 10/23/21 21:00 Melatonin 3 Mg Tablet PO HS ESTRELLA Montelukast Sodium 10 mg 10/22/21 21:00 10/22/21 20:12 Montelukast Sodium 10 Mg Tablet PO 10 mg HS ESTRELLA Administration Ondansetron HCl 4 mg 10/21/21 18:02 Ondansetron Inj 4 Mg/2 Ml Vial IV PUSH Q4H PRN Nausea Pantoprazole Sodium 40 mg 10/22/21 09:00 10/23/21 09:16 Pantoprazole Sodium Iv 40 Mg Vial IV PUSH 40 mg Q12HR ESTRELLA Administration Tramadol HCl 25 mg 10/22/21 21:46 10/23/21 04:58 Tramadol Hcl (*Crx) 25 M
[2021-10-23] MEDS: MELATONIN 3 MG TABLET PO (20:52)
[2021-10-23] MEDS: MONTELUKAST SODIUM 10 MG TABLET PO (20:52)
[2021-10-23 22:00] VITALS: BP 105/41; PULSE 79; RESP 20; TEMP 36.1; O2SAT 97
[2021-10-24] VITALS: BP 105/41; PULSE 79; RESP 20; TEMP 36.1; O2SAT 97
[2021-10-24] MEDS: fentaNYL CITRATE INJ (*CRX) 100 MCG/2 ML VIAL 50 MCG IV PUSH (00:43)
[2021-10-24 06:27] LABS: Basophils Percent Auto 0.7 % (0.2-1.2); Eosinophils Absolute Auto 0.2 K/mm3 (0-0.3); Eosinophils Percent Auto 3.2 % (0-4.4); Hematocrit 26.5 % (37.0-47.0); Hemoglobin 8.1 g/dL (12.0-15.0); Immature Granulocyte Absolute 0.02 K/mm3 (0.00-0.031); Immature Granulocyte Percent A 0.4 % (0-0.5); Lymphocytes Absolute Auto 0.44 K/mm3 (0.9-3.2); Lymphocytes Percent Auto 7.8 % (18.3-44.2); Mean Corpuscular HGB Conc 30.6 g/dl (32-36); Mean Corpuscular Hemoglobin 26.6 pg (26-34); Mean Corpuscular Volume 86.9 fl (80-100); Mean Platelet Volume 9.8 fl (7.4-10.4); Monocytes Absolute Auto 0.7 K/mm3 (0.1-0.6); Monocytes Percent Auto 11.7 % (2.6-8.5); Neutrophils Absolute Auto 4.3 K/mm3 (1.3-6.7); Neutrophils Percent Auto 76.2 % (45.5-73.1); Platelet Count Result 332 k/mm3 (150-375); Red Blood Count 3.05 M/mm3 (4.2-5.4); Red Cell Distribution Width 15.9 % (11.5-14.5); White Blood Count 5.6 K/mm3 (4.5-10.0)
[2021-10-24 06:41] LABS: Alanine Aminotransferase 8 U/L (6-35); Alkaline Phosphatase 80 U/L (38-126); Anion Gap 9 mmol/L (8-16); Aspartate Amino Transferase 14 U/L (14-36); Bilirubin,Total 0.8 mg/dL (0.2-1.3); Blood Urea Nitrogen 18 mg/dL (7-17); Carbon Dioxide 22 mmol/L (22-30); Chloride 102 mmol/L (98-107); Estimated CRCL calculation 42 ml/min; Estimated Glomerular Filt Rate > 60; Glucose 103 mg/dL (65-110); Magnesium 1.6 mg/dL (1.6-2.3); Potassium 3.5 mmol/L (3.4-5.0); Sodium 133 mmol/L (137-145)
[2021-10-24 08:22] VITALS: O2SAT 95
[2021-10-24] MEDS: PANTOPRAZOLE SODIUM IV 40 MG VIAL IV PUSH (09:00)
[2021-10-24] MEDS: MAGNESIUM SULF 4 GM/WATER100ML 4 GM/100 ML BAG IVPB (09:00)
[2021-10-24] MEDS: FERROUS SULFATE 324 MG TABLET PO ×2 (09:00→17:58)
[2021-10-24] MEDS: lisinopriL 5 MG TABLET PO (09:00)
--- NOTE | 2021-10-24 09:45 | PM.DS ---
DS: Admitting Diagnosis Discharge Date 10/24/21 0945 Admitting Diagnosis anemia with GI bleed DS: Discharge Diagnosis Discharge Diagnosis (1) GI bleed: Code(s): K92.2 - Gastrointestinal hemorrhage, unspecified Status: Acute Assessment and Plan: Current H/H is 8.7/28.9 H&H upon arrival 6.5/21.9 hemoglobin/hematocrit q.6 hours. transfuse if H&H is below 7 2 units of packed red blood cells transfused on 10/21/2021 GI consult thank you for your help Pantoprazole BID Diet: NPO DVT Px: SCDs (2) Symptomatic anemia: Code(s): D64.9 - Anemia, unspecified Status: Acute Assessment and Plan: Current H/H is 8.7/28.9 H&H 6.5/21.9 H&H q.6 hour 2 units of packed red blood cells transfused 10/21/21 Continue to trend labs Transfuse as indicated Probably a combination of acute blood loss anemia, and iron deficiency anemia Anemia labs iron 18, TIBC 278,% saturation 6, transferrin 170, ferritin 88, B12 greater than 1000, folate 7.3 continue home iron supplement 1 infusion of iron Consider oncology (3) Hypertension: Qualifiers: Hypertension type: essential hypertension Qualified Code(s): I10 - Essential (primary) hypertension Code(s): I10 - Essential (primary) hypertension Status: Acute Assessment and Plan: BP currently 131/58 Continue home lisinopril 5mg PO daily Trend BP Adjust therapy as indicated (4) COPD (chronic obstructive pulmonary disease): Code(s): J44.9 - Chronic obstructive pulmonary disease, unspecified Status: Acute Assessment and Plan: Continue home Singulair Neb treatments on board monitor SPO2 and respiratory status Adjust therapy as indicated DS: Summary Hospital Course Hospital Course: patient is an 85-year-old female with past medical history of hip replacement, CVA, heart failure, lung mass who presented to the ED for abnormal labs. He was noted upon arrival the patient had a hemoglobin hematocrit of 6.5/21.9 and was given 2 units of packed red blood cells. GI was consulted and anemia labs were obtained. Iron was initiated the patient has iron was only 10. Patient also received 1 infusion of iron as well. Patient recently was here for hip replacement. GI was consulted however patient is not wanting to do anything invasive at this time. H&H is improving. Patient stated that she feels okay and that she is ready to go back to the facility for PT and OT. She does have pain in her hip however she denies any chest pain, shortness of breath, nausea, vomiting, diarrhea, constipation, weakness or fatigue. her only complaint is that she is very tired. Labs and vital signs are stable at this time patient is stable for discharge. Status at Discharge Functional status at discharge: uses cane/walker Overall status at discharge: patient is progressing back to baseline Time Spent with Patient Time attestation: Total time spent providing and/or coordinating discharge services: 48 minutes Time spent: Greater than 30 minutes Specific discharge activities: Diagnostic testing, chart review, developing a treatment plan, education, care coordination documentation, physical exam, result review Exam Const: General: cooperative, no acute distress, well developed, alert, awake and tired appearing Nutritional Appearance: well nourished Orientation/consciousness: oriented to person, oriented to place, oriented to time and patient oriented x3 Limitations: no limitations HENMT: Head: normal to inspection Ears: hearing grossly normal bilaterally General nose exam: Normal external nose present Mouth: Yes Normal oral and palatal mucosa present, Yes lip normal and Yes tongue normal Teeth and gingiva: abnormal tooth and associated gingiva and poor dentition Eyes: General: appearance normal, both eyes and all related structures Neck: Neck: normal visual inspection,
--- NOTE | 2021-10-24 09:45 | P.DS_ITS ---
DS: Admitting Diagnosis Discharge Date 10/24/21 0945 Admitting Diagnosis anemia with GI bleed DS: Discharge Diagnosis Discharge Diagnosis (1) GI bleed: Code(s): K92.2 - Gastrointestinal hemorrhage, unspecified Status: Acute Assessment and Plan: * Current H/H is 8.7/28.9 * H&H upon arrival 6.5/21.9 * hemoglobin/hematocrit q.6 hours. * transfuse if H&H is below 7 * 2 units of packed red blood cells transfused on 10/21/2021 * GI consult thank you for your help * Pantoprazole BID * Diet: NPO * DVT Px: SCDs (2) Symptomatic anemia: Code(s): D64.9 - Anemia, unspecified Status: Acute Assessment and Plan: * Current H/H is 8.7/28.9 * H&H 6.5/21.9 * H&H q.6 hour * 2 units of packed red blood cells transfused 10/21/21 * Continue to trend labs * Transfuse as indicated * Probably a combination of acute blood loss anemia, and iron deficiency anemia * Anemia labs iron 18, TIBC 278,% saturation 6, transferrin 170, ferritin 88, B12 greater than 1000, folate 7.3 * continue home iron supplement * 1 infusion of iron * Consider oncology (3) Hypertension: Qualifiers: Hypertension type: essential hypertension Qualified Code(s): I10 - Essential (primary) hypertension Code(s): I10 - Essential (primary) hypertension Status: Acute Assessment and Plan: * BP currently 131/58 * Continue home lisinopril 5mg PO daily * Trend BP * Adjust therapy as indicated (4) COPD (chronic obstructive pulmonary disease): Code(s): J44.9 - Chronic obstructive pulmonary disease, unspecified Status: Acute Assessment and Plan: * Continue home Singulair * Neb treatments on board * monitor SPO2 and respiratory status * Adjust therapy as indicated DS: Summary Hospital Course Hospital Course: patient is an 85-year-old female with past medical history of hip replacement, CVA, heart failure, lung mass who presented to the ED for abnormal labs. He was noted upon arrival the patient had a hemoglobin hematocrit of 6.5/21.9 and was given 2 units of packed red blood cells. GI was consulted and anemia labs were obtained. Iron was initiated the patient has iron was only 10. Patient also received 1 infusion of iron as well. Patient recently was here for hip replacement. GI was consulted however patient is not wanting to do anything invasive at this time. H&H is improving. Patient stated that she feels okay and that she is ready to go back to the facility for PT and OT. She does have pain in her hip however she denies any chest pain, shortness of breath, nausea, vomiting, diarrhea, constipation, weakness or fatigue. her only complaint is that she is very tired. Labs and vital signs are stable at this time patient is stable for discharge. Status at Discharge Functional status at discharge: uses cane/walker Overall status at discharge: patient is progressing back to baseline Time Spent with Patient Time attestation: Total time spent providing and/or coordinating discharge services: 48 minutes Time spent: Greater than 30 minutes Specific discharge activities: Diagnostic testing, chart review, developing a treatment plan, education, care coordination documentation, physical exam, result review Exam Const: General: cooperative, no acute distress, well developed, alert, awake and tired appearing Nutritional Appearance: well nourished Orientation/consciousness: oriented to
[2021-10-24] MEDS: IRON SUCROSE COMPLEX 200 MG in SODIUM CHLORIDE 0.9% IV 50 ML 120 MG IVPB (10:40)
[2021-10-24] MEDS: traMADol HCL (*CRX) 25 MG TABLET PO ×2 (11:19→17:58)
--- NOTE | 2021-10-24 11:38 | PCPTNOTE ---
Patient refused treatment this session stating she did not sleep last night and needs to rest. Patient states she wants to discharge from the hospital today.
[2021-10-24 13:16] VITALS: BP 112/47; PULSE 85; RESP 20; TEMP 36.1; O2SAT 97
--- NOTE | 2021-10-24 16:18 | PCPTNOTE ---
Patient refused treatment this session due to pt feeling tired and wanting to get some rest. Will continue per PT plan of care.
[2021-10-24 16:46] LABS: EDCOVIDSCREEN Negative (Negative)
== END 2021-10-24 19:00 | DRG 378 ==
LOC: ANHED 16:33 → ANH3MEDSUR 18:46
PROVIDERS: Admitting Provider Family Medicine; Emergency Provider Emergency Medicine; PCP Internal Medicine; Visit Provider Nurse Practitioner
DX: K92.2 Gastrointestinal hemorrhage, unspecified (principal); D62 Acute posthemorrhagic anemia; I13.0 Hypertensive heart and chronic kidney disease with heart failure and stage 1 through stage 4 chronic kidney disease, or unspecified chronic kidney disease; I50.32 Chronic diastolic (congestive) heart failure; D50.9 Iron deficiency anemia, unspecified; J44.9 Chronic obstructive pulmonary disease, unspecified; E03.9 Hypothyroidism, unspecified; E21.5 Disorder of parathyroid gland, unspecified; M19.90 Unspecified osteoarthritis, unspecified site; M81.0 Age-related osteoporosis without current pathological fracture; Z20.822 Contact with and (suspected) exposure to COVID-19; L30.9 Dermatitis, unspecified; Z96.649 Presence of unspecified artificial hip joint; Z96.652 Presence of left artificial knee joint; S72.90XD Unspecified fracture of unspecified femur, subsequent encounter for closed fracture with routine healing; Z86.73 Personal history of transient ischemic attack (TIA), and cerebral infarction without residual deficits; Z85.118 Personal history of other malignant neoplasm of bronchus and lung; Z87.891 Personal history of nicotine dependence; Z86.16 Personal history of COVID-19
CPT/HCPCS: 36415; 36430; 80053; 81001; 82607; 82728; 82746; 83540; 83550; 83735; 84466; 85025; 85046; 85610; 85730; 86850; 86900; 86901; 86920; 87077; 87086; 87147; 87181; 87186; 87426; 96374; 96375; 96376; 97110; 97162; 97167; 97530; 97535; 99285; A9270; C9113; C9803; G0378; J1756; J3010; J3475; J7050; P9016; U0003; U0005

== ENCOUNTER 2021-11-03 11:54 | Observation (INO) | payer MEDICARE, MEDICAID, SELFPAY ==
[2021-11-03] VITALS (29 sets, daily range): BP systolic 81–112; BP diastolic 38–85; PULSE 53–101; RESP 16–27; TEMP 36.2–36.9; O2SAT 96–98; BMI 21.2
[2021-11-03 12:08] LABS: Glucose Point of Care 99 mg/dl (65-105)
[2021-11-03 12:29] LABS: Basophils Absolute Auto 0.1 K/mm3 (0.0-0.1); Basophils Percent Auto 0.6 % (0.2-1.2); Eosinophils Absolute Auto 0.1 K/mm3 (0-0.3); Eosinophils Percent Auto 0.9 % (0-4.4); Hematocrit 22.6 % (37.0-47.0); Immature Granulocyte Absolute 0.04 K/mm3 (0.00-0.031); Immature Granulocyte Percent A 0.5 % (0-0.5); Lymphocytes Absolute Auto 0.64 K/mm3 (0.9-3.2); Lymphocytes Percent Auto 8.3 % (18.3-44.2); Mean Corpuscular HGB Conc 27.4 g/dl (32-36); Mean Corpuscular Hemoglobin 26.4 pg (26-34); Mean Corpuscular Volume 96.2 fl (80-100); Mean Platelet Volume 9.9 fl (7.4-10.4); Monocytes Absolute Auto 0.5 K/mm3 (0.1-0.6); Monocytes Percent Auto 6.7 % (2.6-8.5); Neutrophils Absolute Auto 6.4 K/mm3 (1.3-6.7); Platelet Count Result 322 k/mm3 (150-375); Red Blood Count 2.35 M/mm3 (4.2-5.4); Red Cell Distribution Width 17.5 % (11.5-14.5); White Blood Count 7.7 K/mm3 (4.5-10.0)
[2021-11-03 12:32] LABS: Hemoglobin 6.2 g/dL (12.0-15.0)
[2021-11-03 12:39] LABS: Alanine Aminotransferase 11 U/L (6-35); Albumin Level 3.6 g/dL (3.5-5.1); Alkaline Phosphatase 74 U/L (38-126); Anion Gap 14 mmol/L (8-16); Aspartate Amino Transferase 22 U/L (14-36); Bilirubin,Total 0.4 mg/dL (0.2-1.3); Blood Urea Nitrogen 44 mg/dL (7-17); Calcium 9.9 mg/dL (8.4-10.2); Carbon Dioxide 18 mmol/L (22-30); Chloride 102 mmol/L (98-107); Estimated CRCL calculation 16 ml/min; Estimated Glomerular Filt Rate 25; Glucose 91 mg/dL (65-110); INR 1.3; Potassium 4.6 mmol/L (3.4-5.0); Prothrombin Time 15.4 Seconds (11.1-14.7); Sodium 134 mmol/L (137-145)
[2021-11-03 12:40] LABS: Partial Thromboplastin Time 30.8 SECONDS (22.3-36.8)
[2021-11-03 12:52] LABS: Anisocytosis 1+ (NORMAL); Crenated RBC 1+ (NORMAL); Ovalocytes 1+ (NORMAL); Platelet Estimate Adequate (Adequate); Poikilocytosis 1+ (NORMAL)
[2021-11-03] MEDS: PANTOPRAZOLE SODIUM IV 40 MG VIAL 80 MG IV PUSH (12:56)
[2021-11-03] MEDS: SODIUM CHLORIDE 0.9% IV 1,000 ML 999 ML IV CONT (13:06)
--- NOTE | 2021-11-03 13:17 | PC.NURSE ---
Lab notified of orders for PRBCs x2
--- NOTE | 2021-11-03 14:05 | ED.GIBLEED ---
HPI - GI Bleed General Chief complaint: GI Bleed Stated complaint: GI Bleed Time Seen by Provider: 11/03/21 12:34 History of Present Illness HPI Narrative: Patient is an 85-year-old female who presents ER with concern for GI bleeding. According to the [facility] patient she began having dark black stools this morning. Patient's blood pressure low for EMS and on arrival. She said no syncope. No falls. She does not take any blood thinners. She was recently hospitalized 2 weeks ago for similar issue and received blood transfusion IV Protonix. She opted not to have any imaging performed at that time. She has continued to take her Protonix. Related Data Home Medications Medication Instructions Recorded Confirmed acetaminophen 500 mg tablet 500 mg PO Q4H PRN Pain (Scale 07/31/19 11/03/21 (Tylenol Extra Strength) Score 1-3) ascorbate calcium (vitamin C) 500 500 mg PO DAILY 06/16/21 11/03/21 mg tablet ferrous sulfate 325 mg (65 mg 325 mg PO BID 06/16/21 11/03/21 iron) tablet cetirizine 10 mg tablet (Zyrtec) 10 mg PO DAILY 06/24/21 11/03/21 melatonin 1 mg tablet 1 mg PO QHS 08/27/21 11/03/21 polyethylene glycol 3350 17 gram 17 g PO DAILY 08/27/21 11/03/21 oral powder packet (Miralax) lisinopril 5 mg tablet 5 mg PO DAILY 10/01/21 11/03/21 calcium carbonate 250 mg-vitamin 1 tablet PO DAILY 10/21/21 11/03/21 D3 3.125 mcg (125 unit) tablet (Oyster Shell + D3) fluticasone propionate 50 1 spray intranasal DAILY 10/21/21 11/03/21 mcg/actuation nasal spray,suspension montelukast 10 mg tablet 10 mg PO HS 10/21/21 11/03/21 Allergies Allergy/AdvReac Type Severity Reaction Status Date / Time atenolol Allergy Severe BLURRED Verified 09/15/21 10:05 VISION fenofibrate Allergy Severe GERNERAL Verified 09/15/21 10:05 MUSCLE PAIN methylprednisolone Allergy Severe ANXIETY Verified 09/15/21 10:05 BLURRED VISION naproxen Allergy Severe CHEST PAINS Verified 09/15/21 10:05 Quinolones Allergy Severe BLURRED Verified 09/15/21 10:05 VISION cefuroxime Allergy Mild Nausea and Verified 09/15/21 10:05 Vomiting clarithromycin Allergy Mild Nausea Verified 09/15/21 10:05 iodine Allergy Mild Nausea,WEAK Verified 09/15/21 10:05 NESS celecoxib Allergy Unknown ABD. Verified 09/15/21 10:05 PAIN/DIZZINESS/NAUSEA erythromycin base Allergy Unknown UNKNOWN Verified 09/15/21 10:05 hydrocodone Allergy Unknown CONFUSION/A Verified 09/15/21 10:05 NXIOUS NSAIDS (Non-Steroidal Allergy Unknown FEELS LIKE Verified 09/15/21 10:05 Anti-Inflamma LOSS OF LIFE oxycodone Allergy Unknown REALLY Verified 09/15/21 10:05 PUTS ME IN OUTER SPACE simvastatin Allergy Unknown CONFUSION Verified 09/15/21 10:05 FROM STATINS butorphanol Allergy Unknown Verified 09/15/21 10:05 cephalexin [From Keflex] Allergy Unknown Verified 09/15/21 10:05 doxycycline Allergy Unknown Verified 09/15/21 10:05 Macrolide Antibiotics Allergy Unknown Verified 09/15/21 10:05 risedronate sodium Allergy Unknown Verified 09/15/21 10:05 acetaminophen [From Vicodin] AdvReac Unknown Verified 09/15/21 10:05 AZELASTINE HCL Allergy Mild BLURRED Uncoded 09/15/21 10:05 VISION FEXOFENADINE HCL Allergy Mild BLURRED Uncoded 09/15/21 10:05 VISION MEDROXYPROGESTERONE ACETATE Allergy Mild Unknown Uncoded 09/15/21 10:05 PSEUDOEPHEDRINE HCL Allergy Mild BLURRED Uncoded 09/15/21 10:05 VISION Contrast Media Allergy Unknown COULD Uncoded 09/15/21 10:05 TAST FOR 3 DAYS ; CONFUSION MOXIFLOXACIN HCL Allergy Unknown UNKNOWN Uncoded 09/15/21 10:05 Review of Systems Review of Systems: All systems reviewed & are unremarkable except as noted in HPI and below Constitutional: Constitutional: Denies chills and Denies fever(s) ENT: Denies nasal congestion and Denies sore throat Cardiovascular: Cardiovascular: Denies chest pain, Denies rapid heart rate and Denies radiating jaw, neck or arm pain Respi
[2021-11-03] MEDS: SODIUM CHLORIDE 0.9% IV 250 ML 30 ML IV CONT (14:15)
[2021-11-03] MEDS: TUBING, BLOOD PLUM PUMP TUBING 1 EACH XX (14:15)
--- NOTE | 2021-11-03 14:41 | WPDGICN ---
Assessment and Plan Assessment and plan (1) Acute on chronic blood loss anemia: Code(s): D62 - Acute posthemorrhagic anemia Status: Acute Assessment and Plan: Hemoglobin is down to 6.2. It was 8.7 last week after she had been hospitalized with similar symptoms and given transfusion of 2 units. (2) Occult blood in stools: Code(s): R19.5 - Other fecal abnormalities Status: Acute Assessment and Plan: Stools were black this morning . I discussed EGD with her. I explained that At this point it does not appear that she will need a colonoscopy. (3) Hypertension: Qualifiers: Hypertension type: essential hypertension Qualified Code(s): I10 - Essential (primary) hypertension Code(s): I10 - Essential (primary) hypertension Status: Acute Assessment and Plan: she takes lisinopril 5 mg daily. GI Consult Note Consult date/time: 11/03/21 14:41 HPI: Mercy Dobbs is a 85 year old female presented to the ED with complaints of severe fatigue. She has also had a dark tar stool this AM. Denies abdominal pain. 10 days ago was admitted with severe anemia but declined investigation. I believe she received 2 units of blood at that time. Now she returns with a drop again in hemoglobin down to 6.2. Hemoglobin was 8.7 prior to her discharge last week. She denies taking any blood thinners. She states that she has had a good appetite. She denies nausea, vomiting, heartburn or other type of indigestion. She has had no red blood her stools. A colonoscopy about 3 or 4 years ago was unremarkable. Review of Systems Review of Systems: All systems reviewed & are unremarkable except as noted in HPI and below PMFSH Past Medical History Medical History Acute on chronic blood loss anemia Anxiety Arthritis of right glenohumeral joint Cardiomyopathy Cataract COPD (chronic obstructive pulmonary disease) COVID CVA (cerebral vascular accident) Eczema Hypertension Hypothyroidism Malignant neoplasm of upper lobe, left bronchus or lung Completed radiation therapy in 2020 Occult blood in stools Osteoarthritis Osteoporosis Parathyroid disorder Pulmonary nodule Symptomatic anemia Tobacco abuse Surgical History Surgical History H/O dilation and curettage 2008 H/O removal of cyst Under left armpit History of knee joint replacement Left 2009 Family History Family History Sibling Family history of coronary artery disease Father Respiratory failure Mother Breast cancer Son Myositis ossificans progressiva Other Family history of arthritis Family history of cardiovascular disease Family history of chronic obstructive pulmonary disease Hypertension Social History Social History Social History: The patient lives in an apartment building by herself. She is . She is retired. She is a former smoker. She denies any alcohol or illicit drugs. Timur and rashid dunbar will be her surrogate. 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
[2021-11-03 16:29] LABS: SARS-CoV-2 RNA PCR Negative
--- NOTE | 2021-11-03 16:31 | ADMGEN ---
This patient, Mercy Dobbs, was admitted to IMU Room 203-01. Patient/family oriented to hospital policies and general routines including ID bracelet, bed and alarms, visiting hours, pain management, procedures, bathroom and other care routines, personal items, smoking policy, room service/diet, and visiting hours. Information on how to activate the Rapid Response Team has been discussed. Patient/Family are encouraged to report perceived risks to care and to ask questions if they do not understand what they are told or what they should do.
[2021-11-03] MEDS: SODIUM CHLORIDE 0.9% IV 1,000 ML 125 ML IV CONT (18:07)
--- NOTE | 2021-11-03 19:12 | PM.IMHP ---
H&P: HPI History of Present Illness Date/Time: 11/03/21 1800 Chief Complaint: Black stool Narrative: This is an 85-year-old female patient who presented to the emergency room today with concerns of a GI bleed. The patient stated that she was having dark stools today. Her blood pressure was low via EMS when she arrived to the ER today. She had no shortness of breath or any syncope. She is not taking any blood thinners. ( Patient had recently been discharged from this hospital on 10/24/2021. The patient had been transfused with 2 units of packed red blood cells on 10/21/2021. GI saw the patient and she decided not to have any procedures performed since she is 85 years old. She was also transfused with iron at that time) Today the patient's H&H is 6.2 and 22.6 compared with her last H&H on 10/24/2021 of 8.1 and 26.5. GI has been consulted today. And patient is agreeable to an EGD. The patient again is receiving a blood transfusion and was started on a Protonix drip and also IV fluids. Patient is being admitted for observation status on the date of service of 11/03/2021. Review of Systems Review of Systems: See HPI All systems reviewed & are unremarkable except as noted in HPI and below Constitutional: Constitutional: Reports as per HPI and Reports no additional constitutional complaints Eyes: Eyes: Reports as per HPI and Reports no additional eye complaints ENT: Reports system reviewed and no additional complaints, except as documented and Reports Normal hearing present Cardiovascular: Cardiovascular: Reports no additional cardiovascular complaints Respiratory: Respiratory: Reports no additional respiratory complaints and Reports no additional respiratory complaints Gastrointestinal: Gastrointestinal: Reports as per HPI and Reports no additional gastrointestinal complaints Musculoskeletal: Musculoskeletal: Reports no additional musculoskeletal complaints Integumentary/Breasts: Skin/Breast: Reports system reviewed and no additional complaints, except as docu and Reports as per HPI Neurologic: Reports system reviewed and no additional complaints, except as documented, Reports as per HPI and Reports Normal hearing present Psychiatric: Psychiatric: Reports no additional psychiatric complaints and Reports as per HPI Endocrine: Endocrine: Reports no additional endocrine complaints Hematologic/Lymphatic: Hematologic/Lymphatic: Reports no additional hematologic/lymphatic complaints Allergic/Immunologic: Allergic/Immunologic: Reports no additional allergic/immunologic complaints PMFSH Past Medical History Medical History Acute on chronic blood loss anemia Anxiety Arthritis of right glenohumeral joint Cardiomyopathy Cataract COPD (chronic obstructive pulmonary disease) COVID CVA (cerebral vascular accident) Eczema Hypertension Hypothyroidism Malignant neoplasm of upper lobe, left bronchus or lung Completed radiation therapy in 2020 Occult blood in stools Osteoarthritis Osteoporosis Parathyroid disorder Pulmonary nodule Symptomatic anemia Tobacco abuse Surgical History Surgical History H/O dilation and curettage 2008 H/O removal of cyst Under left armpit History of knee joint replacement Left 2010 Family History Family History Sibling Family history of coronary artery disease Father Respiratory failure Mother Breast cancer Son Myositis ossificans progressiva Other Family history of arthritis Family history of cardiovascular disease Family history of chronic obstructive pulmonary disease Hypertension Social History Social History (Updated 11/03/21 @ 19:20 by Noemi Ayala NP) Social History: The patient lives in an apartment building by herself typically but she tells me that [facility].. She is
[2021-11-03 19:56] LABS: Hemoglobin 8.3 g/dL (12.0-15.0)
[2021-11-03] MEDS: MELATONIN 3 MG TABLET PO (21:52)
[2021-11-03] MEDS: MONTELUKAST SODIUM 10 MG TABLET PO (21:52)
[2021-11-04] VITALS (18 sets, daily range): BP systolic 95–143; BP diastolic 39–62; PULSE 64–86; RESP 16–25; TEMP 36.3–36.7; O2SAT 92–100; BMI 20.5
[2021-11-04 01:42] LABS: Hematocrit 24.4 % (37.0-47.0); Hemoglobin 7.5 g/dL (12.0-15.0)
[2021-11-04] MEDS: SODIUM CHLORIDE 0.9% IV 1,000 ML 125 ML IV CONT ×3 (02:13→20:19)
[2021-11-04 07:26] LABS: Basophils Percent Auto 0.6 % (0.2-1.2); Eosinophils Absolute Auto 0.3 K/mm3 (0-0.3); Hematocrit 25.7 % (37.0-47.0); Immature Granulocyte Absolute 0.03 K/mm3 (0.00-0.031); Immature Granulocyte Percent A 0.5 % (0-0.5); Lymphocytes Absolute Auto 0.42 K/mm3 (0.9-3.2); Lymphocytes Percent Auto 6.5 % (18.3-44.2); Mean Corpuscular HGB Conc 31.1 g/dl (32-36); Mean Corpuscular Hemoglobin 27.2 pg (26-34); Mean Corpuscular Volume 87.4 fl (80-100); Mean Platelet Volume 9.8 fl (7.4-10.4); Monocytes Absolute Auto 0.4 K/mm3 (0.1-0.6); Monocytes Percent Auto 5.7 % (2.6-8.5); Neutrophils Absolute Auto 5.4 K/mm3 (1.3-6.7); Neutrophils Percent Auto 82.7 % (45.5-73.1); Platelet Count Result 231 k/mm3 (150-375); Red Blood Count 2.94 M/mm3 (4.2-5.4); Red Cell Distribution Width 17.5 % (11.5-14.5); White Blood Count 6.5 K/mm3 (4.5-10.0)
--- NOTE | 2021-11-04 07:32 | PM.IMPN ---
Progress Note: A&P Assessment and Plan (1) Acute on chronic blood loss anemia: Code(s): D62 - Acute posthemorrhagic anemia Status: Acute Assessment and Plan: H/O GI bleed 2019 with angioectasia and 10/23/21. s/p 2 units PRBCs GI consulted and appreciate recommendations EGD today and results pending. Trend H/H. Monitor stools. Continue iron supplements. (2) COPD (chronic obstructive pulmonary disease): Code(s): J44.9 - Chronic obstructive pulmonary disease, unspecified Status: Chronic Assessment and Plan: Chronic, not in acute exacerbation. continue with Singulair, Zyrtec, and Flonase Monitor respiratory status. (3) Hypertension: Qualifiers: Hypertension type: essential hypertension Qualified Code(s): I10 - Essential (primary) hypertension Code(s): I10 - Essential (primary) hypertension Status: Chronic Assessment and Plan: Patient was hypotensive on admission. BP 130/46, HR 76. Hold lisinopril for now. Plan CODE STATUS: FULL CODE Disposition: Return to SNF Time Spent With Patient Time with patient: 15 - 25 minutes Subjective Date/time seen: 11/04/21 07:32 Patient found sitting up in bed. She is waiting for EGD today. She denies stools since admission, but does endorse large, black, tarry stool prior to admission. She denies aspirin, Review of Systems Review of Systems: All systems reviewed & are unremarkable except as noted in HPI and below Exam Narrative: General: No acute distress.? Frail, older adult female. No oxygen. Mental Status/Psych: Awake, alert and oriented x2-3. Forgetful. Clear speech. Neutral mood and affect. Pleasant and cooperative. Skin: Skin fair, warm, dry and intact without rashes or lesions. No open wounds. Good turgor.? HEENT: Normocephalic. Sclera is non-icteric. EOM intact. PERRL. Grossly normal hearing. Oral mucosa pink and moist. Oropharynx within normal limits. Neck: Supple. No JVD. Heart: S1 and S2 regular rate and rhythm. No murmurs, gallops, or rubs auscultated. NSR on telemetry. Chest: Respirations even and unlabored. Lung sounds are clear to auscultation in all lobes bilaterally without wheezes, rhonchi, or rales. Abdomen: Soft, round and non-tender to palpation.? Bowel sounds present in all 4 quadrants. No guarding or grimacing. Extremities:? Grossly normal ROM all extremities. No edema. Radial and dorsalis pedis pulses +2 bilaterally. Neurological: No focal deficits. Cranial nerves 2-12 grossly intact. Objective Data Vital Signs Vital Signs: Vital Signs - 24 hr 11/03/21 11:51 11/03/21 12:04 11/03/21 12:26 Temperature 97.5 F L Pulse Rate 87 82 101 H Respiratory Rate 19 23 H 18 Blood Pressure 108/51 L 81/46 L Pulse Oximetry 96 Oxygen Delivery Room Air 11/03/21 12:30 11/03/21 12:45 11/03/21 13:00 Temperature Pulse Rate 101 H 84 88 Respiratory Rate 19 20 20 Blood Pressure Pulse Oximetry Oxygen Delivery 11/03/21 13:18 11/03/21 13:30 11/03/21 13:31 Temperature Pulse Rate 88 86 87 Respiratory Rate 23 H 21 H 18 Blood Pressure 100/85 Pulse Oximetry 98 Oxygen Delivery 11/03/21 14:01 11/03/21 14:17 11/03/21 13:32 Temperature 98.1 F 98.1 F Pulse Rate 90 90 86 Respiratory Rate 20 23 H 21 H Blood Pressure 99/58 L 87/52 L Pulse Oximetry 96 97 97 Oxygen Delivery 11/03/21 13:45 11/03/21 13:46 11/03/21 14:00 Temperature Pulse Rate 86 88 93 Respiratory Rate 21 H 21 H 20 Blood Pressure 97/58 L Pulse Oximetry Oxygen Delivery 11/03/21 14:01 11/03/21 14:03 11/03/21 14:15 Temperature Pulse Rate 92 93 92 Respiratory Rate 25 H 20 27 H Blood Pressure 105/46 L 99/58 L Pulse Oximetry 97 Oxygen Delivery 11/03/21 14:16 11/03/21 14:34 11/03/21 15:10 Temperature 98 F 97.6 F Pulse Rate 89 90 87 Respiratory Rate 21 H 18 19 Blood Pressure 87/52 L 87/54 L 98/38 L Pulse Oximetry 98 96 Oxygen Delivery
[2021-11-04 07:43] LABS: Alanine Aminotransferase 7 U/L (6-35); Albumin Level 2.7 g/dL (3.5-5.1); Alkaline Phosphatase 57 U/L (38-126); Anion Gap 8 mmol/L (8-16); Aspartate Amino Transferase 18 U/L (14-36); Bilirubin,Total 1.4 mg/dL (0.2-1.3); Blood Urea Nitrogen 25 mg/dL (7-17); Calcium 8.8 mg/dL (8.4-10.2); Carbon Dioxide 19 mmol/L (22-30); Chloride 105 mmol/L (98-107); Estimated CRCL calculation 25 ml/min; Estimated Glomerular Filt Rate 43; Glucose 88 mg/dL (65-110); Potassium 3.5 mmol/L (3.4-5.0); Sodium 132 mmol/L (137-145)
[2021-11-04] MEDS: PANTOPRAZOLE SODIUM IV 40 MG VIAL IV PUSH ×2 (08:38→20:19)
[2021-11-04] MEDS: FLUTICASONE PROPIONATE 0.05% NA SPR 16 GM BTL (*BKC) 1 SPRAY NASAL (08:38)
--- NOTE | 2021-11-04 09:32 | PCSTNOTE ---
Spoke with treating RN to attempt bedside swallow evaluation, FANY Pearson reported that the patient has an EGD scheduled for early afternoon and cannot be seen for a bedside at this time. HOLD order.
[2021-11-04] MEDS: LACTATED RINGERS 1,000 ML 150 ML IV CONT (12:19)
[2021-11-04 14:56] LABS: Hematocrit 26.7 % (37.0-47.0); Hemoglobin 8.1 g/dL (12.0-15.0)
[2021-11-04] MEDS: FERROUS SULFATE 324 MG TABLET PO (17:34)
[2021-11-04] MEDS: MELATONIN 3 MG TABLET PO (20:19)
[2021-11-04] MEDS: MONTELUKAST SODIUM 10 MG TABLET PO (20:19)
[2021-11-05] VITALS (11 sets, daily range): BP systolic 120–156; BP diastolic 54–64; PULSE 72–86; RESP 14–20; TEMP 36.5–36.9; O2SAT 95–97
[2021-11-05] MEDS: SODIUM CHLORIDE 0.9% IV 1,000 ML 125 ML IV CONT (04:29)
--- NOTE | 2021-11-05 06:25 | WPDGIPROGNO ---
Progress Note: A&P Assessment and Plan (1) Acute on chronic blood loss anemia: Code(s): D62 - Acute posthemorrhagic anemia Status: Acute Assessment and Plan: Hemoglobin is down to 6.2. It was 8.7 last week after she had been hospitalized with similar symptoms and given transfusion of 2 units. (2) Occult blood in stools: Code(s): R19.5 - Other fecal abnormalities Status: Acute Assessment and Plan: Stools were black this morning . I discussed EGD with her. I explained that At this point it does not appear that she will need a colonoscopy. 11/05/2021 her EGD was unremarkable except for a hiatal hernia with some Wing erosions. with frequently see anemia in individuals with Wing erosions which are basically superficial ulcerations straddling the diaphragmatic portion of the hernia. Protonix should take care of that. H pylori was negative. She is tolerating her diet. She had a colonoscopy that was unremarkable just 2 years ago. I think she could be discharged. (3) Hypertension: Qualifiers: Hypertension type: essential hypertension Qualified Code(s): I10 - Essential (primary) hypertension Code(s): I10 - Essential (primary) hypertension Status: Chronic Assessment and Plan: she takes lisinopril 5 mg daily. Subjective Date/time seen: Mercy Dobbs is a 85 year old female presented to the ED with complaints of severe fatigue. She has also had a dark tar stool this AM. Denies abdominal pain. 10? days ago was admitted with severe anemia but declined investigation. I believe she received 2 units of blood at that time.? Now she returns with a drop again in hemoglobin down to? 6.2.? Hemoglobin was 8.7 prior to her discharge last week.? She denies taking any blood thinners.? She states that she has had a good appetite.? She denies nausea, vomiting, heartburn or other type of indigestion.? She has had no red blood her stools.? A colonoscopy about 3 years ago was unremarkable 11/05/21 06:25 She has had extensive investigation in the past. Her last colonoscopy 2 years ago was unremarkable. She told me that she had also had capsule endoscopy of the small bowel which was negative. As I do not see any evidence of active bleeding now, an EGD only showed some erosions, I think that it would be reasonable to discharge her but keep her on Protonix because of the Wing erosions seen in the hiatal hernia. Exam Narrative: General: No acute distress.? Frail, older adult female. No oxygen. Mental Status/Psych: Sleeping. Arouses to voice. Oriented to person. Thinks she's in [place]. Clear speech. Neutral mood and affect. Pleasant and cooperative. Skin: fair, warm, dry and intact without rashes or lesions. No open wounds. Fair turgor.? HEENT: Normocephalic. Sclera is non-icteric. Pupils equal and round. Oral mucosa pink and moist. Neck: Supple. No JVD. Heart: S1 and S2 regular rate and rhythm. Systolic murmur 2/6 auscultated in all meza. No gallops or rubs auscultated. NSR on telemetry. Chest: Respirations even and unlabored. Lung sounds are clear to auscultation and diminished in bibasilar lobes. No wheezes, rhonchi, or rales. Abdomen: Soft, round and mildly tender to palpation LLQ.? Bowel sounds present in all 4 quadrants. No guarding. Extremities:? Grossly normal ROM all extremities. No edema. Radial and dorsalis pedis pulses +2 bilaterally. Neurological: No focal deficits. Const: General: alert Orientation/consciousness: patient oriented x3 Resp: Auscultation: clear to auscultation bilaterally Cardio: Rhythm: regular rhythm Neuro: General: patient oriented x3 Objective Data Vital Signs Vital Signs: Vital Signs - 24 hr 11/04/21 08:18 11/04/21 08:00 11/04/21 10:33 Temperature 36.7 C Pulse Rate 72 79 Respiratory Rate 16 Blood Pressure 98/43 L Pulse Oximetry 92 Oxygen Delivery Room Air 11/04/21 10:18 11/04/21 08:00 11/04/21 10:00
[2021-11-05 06:42] LABS: Hematocrit 24.5 % (37.0-47.0); Hemoglobin 7.5 g/dL (12.0-15.0); Mean Corpuscular HGB Conc 30.6 g/dl (32-36); Mean Corpuscular Hemoglobin 27.2 pg (26-34); Mean Corpuscular Volume 88.8 fl (80-100); Mean Platelet Volume 9.4 fl (7.4-10.4); Platelet Count Result 203 k/mm3 (150-375); Red Blood Count 2.76 M/mm3 (4.2-5.4); Red Cell Distribution Width 17.3 % (11.5-14.5); White Blood Count 4.7 K/mm3 (4.5-10.0)
[2021-11-05 07:00] LABS: Anion Gap 9 mmol/L (8-16); Blood Urea Nitrogen 13 mg/dL (7-17); Calcium 8.6 mg/dL (8.4-10.2); Carbon Dioxide 17 mmol/L (22-30); Chloride 108 mmol/L (98-107); Estimated CRCL calculation 42 ml/min; Estimated Glomerular Filt Rate > 60; Glucose 78 mg/dL (65-110); Potassium 3.3 mmol/L (3.4-5.0); Sodium 134 mmol/L (137-145)
--- NOTE | 2021-11-05 07:43 | WPDANESPN ---
Anes - Prog Note Post-Op Date/Time: 11/05/21 07:43 Cardiovascular status: other (anemia) Respiratory status: normal Airway patency: baseline Mental status: baseline Post-Op hydration status: normal Vital Signs: Last Vital Signs Temp 98.4 F 11/05/21 06:00 Pulse 80 11/05/21 06:00 Resp 14 11/05/21 06:00 BP 120/58 L 11/05/21 06:00 Pulse Ox 97 11/05/21 06:00 O2 Del Method Room Air 11/04/21 20:00 Pain Score (VAS): 04/07 I/O: Intake & Output 11/04/21 11/04/21 11/05/21 15:59 23:59 07:59 Intake Total 1100 1240 1000 Balance 1100 1240 1000 Laboratory Tests 11/05/21 06:19 11/05/21 06:19 11/04/21 11/04/21 11/04/21 07:10 07:10 14:38 WBC RBC Hgb 8.1 L Hct 26.7 L MCV MCH MCHC RDW Plt Count MPV Sodium 132 L Potassium 3.5 Chloride 105 Carbon Dioxide 19 L Anion Gap 8 BUN 25 H D Creatinine 1.20 H Estim Creat Clear Calc 25 Estimated GFR 43 L Glucose 88 Calcium 8.8 Ferritin 491.00 H Total Bilirubin 1.4 H AST 18 ALT 7 Alkaline Phosphatase 57 Total Protein 5.0 L Albumin 2.7 L 11/05/21 11/05/21 06:19 06:19 WBC 4.7 RBC 2.76 L Hgb 7.5 L Hct 24.5 L MCV 88.8 MCH 27.2 MCHC 30.6 L RDW 17.3 H Plt Count 203 MPV 9.4 Sodium 134 L Potassium 3.3 L Chloride 108 H Carbon Dioxide 17 L Anion Gap 9 BUN 13 D Creatinine 0.70 Estim Creat Clear Calc 42 Estimated GFR > 60 Glucose 78 Calcium 8.6 Ferritin Total Bilirubin AST ALT Alkaline Phosphatase Total Protein Albumin Post-procedural complaints: none Patient Feedback: Patient satisfied with anesthetic care.
[2021-11-05] MEDS: CHOLECALCIFEROL 1,000 UNITS TABLET 1000 UNITS PO (08:20)
[2021-11-05] MEDS: FLUTICASONE PROPIONATE 0.05% NA SPR 16 GM BTL (*BKC) 1 SPRAY NASAL (08:20)
[2021-11-05] MEDS: FERROUS SULFATE 324 MG TABLET PO (08:20)
[2021-11-05] MEDS: LORATADINE 10 MG TABLET PO (08:20)
[2021-11-05] MEDS: CYANOCOBALAMIN 1,000 MCG TABLET 1000 MCG PO (08:20)
[2021-11-05] MEDS: PANTOPRAZOLE SODIUM IV 40 MG VIAL IV PUSH (08:20)
--- NOTE | 2021-11-05 09:42 | PCSTNOTE ---
Bedside swallowing evaluation attempted, patient sleeping. Per nursing she was awake all night. Will try to return later today to evaluate if able.
[2021-11-05 10:20] LABS: Magnesium 1.5 mg/dL (1.6-2.3)
[2021-11-05] MEDS: MAGNESIUM SULF 2 GM/WATER 50ML 2 GM/50 ML BAG IVPB (11:22)
[2021-11-05] MEDS: POTASSIUM CHLORIDE 20 MEQ PACKET (FOR LIQUID) 40 MEQ PO (11:23)
[2021-11-05] MEDS: SENNA/DOCUSATE SODIUM TABLET 1 TAB PO (11:23)
--- NOTE | 2021-11-05 11:38 | PCSTNOTE ---
Patient still sleeping, unable to participate in bedside swallowing evaluation at this time. Will try tomorrow.
[2021-11-05 12:13] LABS: Hematocrit 24.9 % (37.0-47.0); Hemoglobin 7.5 g/dL (12.0-15.0)
--- NOTE | 2021-11-05 13:36 | PM.IMPN ---
Progress Note: A&P Assessment and Plan (1) Acute on chronic blood loss anemia: Code(s): D62 - Acute posthemorrhagic anemia Status: Acute Assessment and Plan: H/O GI bleed 2019 with angioectasia and 10/23/21. s/p 2 units PRBCs GI consulted and appreciate recommendations EGD 11/04/21 showed Wing erosions, but no active bleeding. Trend H/H. H/H 7.5/24.9 today. No stool. Monitor stools. Continue iron supplement daily. Resume vitamin C daily for absorption. (2) COPD (chronic obstructive pulmonary disease): Code(s): J44.9 - Chronic obstructive pulmonary disease, unspecified Status: Chronic Assessment and Plan: Chronic, not in acute exacerbation. continue with Singulair, Zyrtec, and Flonase Monitor respiratory status. (3) Hypertension: Qualifiers: Hypertension type: essential hypertension Qualified Code(s): I10 - Essential (primary) hypertension Code(s): I10 - Essential (primary) hypertension Status: Chronic Assessment and Plan: Patient was hypotensive on admission. BP 130/46, HR 76. Resume lisinopril with hold parameters. Potassium level 3.3. KCl 40 mEQ PO daily given x1 Magnesium 1.5. Mag sulfate 2 grams IVPB x1 given. Plan CODE STATUS: FULL CODE Disposition: Return to SNF. Auth pending. Time Spent With Patient Time with patient: 15 - 25 minutes Subjective Date/time seen: 11/05/21 13:36 Interval history: Patient is an 85 yo female who presented to the hospital from rehab for evaluation of fatigue and black stools. She was found to have anemia, Hgb 6.5 on presentation and admitted for GI evaluation. Patient found sleeping. She arouses to voice, but falls back to sleep easily without stimulation. Nursing reports the patient was up all night and did not fall to sleep until 6 am. Patient denies stool since admission. No c/o abdominal pain, N/V, chest pain, shortness of breath or dizziness. EGD yesterday without active bleeding. Review of Systems Review of Systems: All systems reviewed & are unremarkable except as noted in HPI and below Exam Narrative: General: No acute distress.? Frail, older adult female. No oxygen. Mental Status/Psych: Sleeping. Arouses to voice. Oriented to person. Thinks she's in [place]. Clear speech. Neutral mood and affect. Pleasant and cooperative. Skin: fair, warm, dry and intact without rashes or lesions. No open wounds. Fair turgor.? HEENT: Normocephalic. Sclera is non-icteric. Pupils equal and round. Oral mucosa pink and moist. Neck: Supple. No JVD. Heart: S1 and S2 regular rate and rhythm. Systolic murmur 2/6 auscultated in all meza. No gallops or rubs auscultated. NSR on telemetry. Chest: Respirations even and unlabored. Lung sounds are clear to auscultation and diminished in bibasilar lobes. No wheezes, rhonchi, or rales. Abdomen: Soft, round and mildly tender to palpation LLQ.? Bowel sounds present in all 4 quadrants. No guarding. Extremities:? Grossly normal ROM all extremities. No edema. Radial and dorsalis pedis pulses +2 bilaterally. Neurological: No focal deficits. Objective Data Vital Signs Vital Signs: Vital Signs - 24 hr 11/04/21 13:45 11/04/21 14:20 11/04/21 16:28 Temperature 97.9 F 97.4 F L Pulse Rate 77 76 76 Respiratory Rate 25 H 16 18 Blood Pressure 116/39 L 113/55 L 130/46 L Pulse Oximetry 100 97 99 Oxygen Delivery Room Air 11/04/21 16:00 11/04/21 17:32 11/04/21 18:17 Temperature 97.3 F L Pulse Rate 73 82 78 Respiratory Rate 21 H Blood Pressure 143/52 H Pulse Oximetry 93 Oxygen Delivery 11/04/21 21:32 11/04/21 20:00 11/05/21 00:00 Temperature 98.4 F Pulse Rate 83 86 Respiratory Rate 14 Blood Pressure 129/54 L Pulse Oximetry 96 Oxygen Delivery Room Air 11/05/21 01:00 11/05/21 04:35 11/05/21 06:00 Temperature 98.4 F Pulse Rate 78 85 80 Respiratory Rate 14 Blood Pressure 120/58 L Pulse Oximetry 97 O
[2021-11-05] MEDS: MELATONIN 3 MG TABLET PO (20:43)
[2021-11-05] MEDS: MONTELUKAST SODIUM 10 MG TABLET PO (20:43)
--- NOTE | 2021-11-06 | PC.NURSE ---
Addendum entered by Carlin Bearden RN 11/06/21 00:02: tele strip added to chart. Original Note: Patient noted to ian down > 40 BPM briefly per tele.
[2021-11-06 00:16] VITALS: PULSE 73
--- NOTE | 2021-11-06 00:51 | ECG_ITS ---
Measurements Intervals [place] Rate: 73 P: -30 MS: 322 QRS: -27 QRSD: 146 T: 26 QT: 396 QTc: 438 Interpretive Statements SINUS RHYTHM WITH FIRST DEGREE AV BLOCK WITH OCCASIONAL VENTRICULAR PREMATURE COMPLEXES BORDERLINE LEFT AXIS DEVIATION [QRS AXIS < -20] RIGHT BUNDLE BRANCH BLOCK [120+ ms QRS DURATION, UPRIGHT V1, 40+ ms S IN I/aVL/V4/V5/V6] COMPARED TO ECG 10/01/2021 10:43:35 NO SIGNIFICANT CHANGES Electronically Signed On 11-06-2021 18:15:27 CDT by Saritha Mckoy M.D.
[2021-11-06 04:21] VITALS: PULSE 68
[2021-11-06 05:43] VITALS: BP 165/71; PULSE 74; RESP 20; TEMP 36.4; O2SAT 97
[2021-11-06 06:46] LABS: Hematocrit 26.1 % (37.0-47.0)
[2021-11-06 07:10] LABS: Potassium 3.1 mmol/L (3.4-5.0)
--- NOTE | 2021-11-06 08:04 | PCSTNOTE ---
Hospitalist discontinued the Speech Therapy evaluation order.
[2021-11-06 09:00] VITALS: PULSE 69
[2021-11-06] MEDS: CYANOCOBALAMIN 1,000 MCG TABLET 1000 MCG PO (09:19)
[2021-11-06] MEDS: FERROUS SULFATE 324 MG TABLET PO (09:19)
[2021-11-06] MEDS: SENNA/DOCUSATE SODIUM TABLET 1 TAB PO (09:19)
[2021-11-06] MEDS: ASCORBIC ACID 500 MG TABLET PO (09:19)
[2021-11-06] MEDS: FLUTICASONE PROPIONATE 0.05% NA SPR 16 GM BTL (*BKC) 1 SPRAY NASAL (09:19)
[2021-11-06] MEDS: LORATADINE 10 MG TABLET PO (09:19)
[2021-11-06] MEDS: PANTOPRAZOLE 40 MG TABLET PO (09:19)
[2021-11-06] MEDS: CHOLECALCIFEROL 1,000 UNITS TABLET 1000 UNITS PO (09:19)
[2021-11-06] MEDS: lisinopriL 5 MG TABLET PO (09:19)
[2021-11-06] MEDS: POTASSIUM CHLORIDE 20 MEQ PACKET (FOR LIQUID) 40 MEQ PO (09:20)
--- NOTE | 2021-11-06 10:25 | PCSTNOTE ---
Bedside swallowing evaluation. Patient alert and up in chair for breakfast. Completed bedside swallowing evaluation. Trial of swiss toast which patient said was too crumbly. Discussed level 6 diet consistency with patient (soft and bite sized). Physician contacted with results of evaluation. Recommended diet level 6 and thin liquids. No signs or symptoms of dysphagia noted during bedside evaluation. Thank you for the referral of this patient.
--- NOTE | 2021-11-06 12:00 | PC.NURSE ---
wound photos taken and submitted today prior to discharge
[2021-11-06 12:01] LABS: EDCOVIDSCREEN Negative (Negative)
[2021-11-06 12:20] VITALS: PULSE 71
--- NOTE | 2021-11-07 07:05 | PM.DS ---
DS: Admitting Diagnosis Discharge Date 11/06/21 1106 Admitting Diagnosis Acute GI bleed Acute on chronic anemia from blood loss DS: Discharge Diagnosis Discharge Diagnosis (1) Symptomatic anemia: Code(s): D64.9 - Anemia, unspecified Status: Acute (2) Acute on chronic blood loss anemia: Code(s): D62 - Acute posthemorrhagic anemia Status: Acute (3) Acute upper GI bleeding: Code(s): K92.2 - Gastrointestinal hemorrhage, unspecified Status: Acute (4) Acute kidney injury: Code(s): N17.9 - Acute kidney failure, unspecified Status: Acute (5) Pressure injury of deep tissue of left heel: Code(s): L89.626 - Pressure-induced deep tissue damage of left heel Status: Acute Assessment and Plan: Present on admission. DS: Summary Hospital Course Reason for hospitalization: Melena, symptomatic anemia Hospital Course: Mercy Dobbs is an 85-year-old female patient with medical history of hypertension, COPd, stroke, lung cancer s/p radiation therapy, and hypothyroidism. She presented to the emergency room, from assisted living facility, for evaluation of black stools. Her blood pressure was reportedly low via EMS, however it was documented at 122/68 with HR 82. In the ED, vitals were HR 87, BP 108/51, RR 20, and 98% on room air. when she arrived to the ER today.?Hemoglobin was 6.2, hematocrit 22.6, BUN 44, creatinine 1.9, but otherwise normal CBC and CMP. She c/o persistent fatigue and weakness. No shortness of breath or syncope.? The patient was previously admitted to the hospital opn 10/01/21 following a fall resulting in left hip fracture and IT nailing on 10/02. She was again readmitted on 10/21/21 for for anemia and transfused 2 units PRBC and IV iron at that time. GI was consulted on this previous admission, however, the patient refused endoscopy exam and was discharged on protonix 40 mg BID PO. The patient is not on antiplatelets or anticoagulants. She denies NSAID use. Her last H&H on 10/24/2021 of 8.1 and 26.5.?The patient was treated with IV fluids and placed on a protonix drip. The patient was agreeable to EGD evaluation and GI was consulted in the ED. The patient was referred for observation. She was continued on IV fluids and treated with 2 units PRBCs. H/H was monitored and Hbg was noted to be 7.5 to 8.0. She underwent EGD and was found to have small hiatal hernia at the fundus, a few Wing lesions, not actively bleeding at the fundus, and mild gastritis. Cold forcep biopsy was obtained. She was recommended to continue protonix 40 mg once daily. She returned to the medical floor and her diet was advanced. Rehab authorization was pending and the patient was monitored overnight. EKG was obtained for concerns for bradycardia and EKG was obtained demonstrating SR with first degree block and RBBB at 73 bpm. Patient was asymptomatic and bradycardia was presumably related to possible sleep disorder. No further melena stools were noted and the patient was discharged back to [facility] in stable condition. Of noted the patient presented to the hospital with left heel deep tissue injury. Wound care was consulted and patient was placed in soft heel protectors with orders for heel off-loading. She will follow up with PCP and have repeat H/H in 3 days. Iron supplement and protonix were continued on discharge. Renal function returned to normal limits at discharge. Status at Discharge Cognitive/behavioral status at discharge: AAOx1-2, pleasant. Functional status at discharge: uses cane/walker Overall status at discharge: patient is progressing back to baseline Time Spent with Patient Time attestation: Total time spent providing and/or coordinating discharge services: Time spent: Greater than 30 minutes DS: Data Data Completed and Pending Labs on day of discharge: Labs from last 24 hours 11/06/21 11/06/21 11:26 06:36 Potassium 3.1 L SARS-CoV-2 IgG/IgM Ag?Rapid
== END 2021-11-06 12:30 ==
LOC: ANHED 15:02 → ANHIMU 21:39 → ANH3MED 11-05 12:50 → ANHIMU 11-10 14:09
PROVIDERS: Internal Medicine Gastroenterology; Nurse Practitioner; Admitting Provider Internal Medicine; Emergency Provider Emergency Medicine; PCP Internal Medicine; Visit Provider Nurse Practitioner Family
PROC: 0DJ08ZZ Inspection of Upper Intestinal Tract, Via Natural or Artificial Opening Endoscopic (ICD-10-PCS; CPT 43235; principal; 2021-11-04 14:00)
DX: K25.9 Gastric ulcer, unspecified as acute or chronic, without hemorrhage or perforation (principal); D62 Acute posthemorrhagic anemia; K44.9 Diaphragmatic hernia without obstruction or gangrene; K29.70 Gastritis, unspecified, without bleeding; R19.5 Other fecal abnormalities; I95.9 Hypotension, unspecified; I10 Essential (primary) hypertension; M19.90 Unspecified osteoarthritis, unspecified site; I42.9 Cardiomyopathy, unspecified; F41.9 Anxiety disorder, unspecified; J44.9 Chronic obstructive pulmonary disease, unspecified; E03.9 Hypothyroidism, unspecified; I49.1 Atrial premature depolarization; I44.0 Atrioventricular block, first degree; I45.10 Unspecified right bundle-branch block; M81.0 Age-related osteoporosis without current pathological fracture; N17.9 Acute kidney failure, unspecified; Z20.822 Contact with and (suspected) exposure to COVID-19; Z79.1 Long term (current) use of non-steroidal anti-inflammatories (NSAID); Z79.51 Long term (current) use of inhaled steroids; Z79.891 Long term (current) use of opiate analgesic; Z79.899 Other long term (current) drug therapy; Z87.891 Personal history of nicotine dependence; Z85.118 Personal history of other malignant neoplasm of bronchus and lung; Z92.3 Personal history of irradiation; Z86.73 Personal history of transient ischemic attack (TIA), and cerebral infarction without residual deficits; Z86.39 Personal history of other endocrine, nutritional and metabolic disease; Z86.16 Personal history of COVID-19; Z80.3 Family history of malignant neoplasm of breast; Z83.6 Family history of other diseases of the respiratory system; Z82.49 Family history of ischemic heart disease and other diseases of the circulatory system
CPT/HCPCS: 43239; 36415; 36430; 80048; 80053; 82728; 82948; 83735; 84132; 85014; 85018; 85025; 85027; 85610; 85730; 86850; 86900; 86901; 86920; 87081; 87426; 92610; 93005; 96361; 96374; 96375; 96376; 97110; 97161; 97165; 97530; 99285; A9270; C9113; C9803; G0378; J3475; J7030; J7050; J7060; J7120; P9016; U0003; U0005

== ENCOUNTER 2021-12-10 08:03 | Outpatient (RCR) | payer MEDICARE, MEDICAID, SELFPAY ==
--- NOTE | 2021-12-09 18:14 | PC.NURSE ---
Tylenol and Benadryl medication orders verified with pharmacist due to possible allergy, orders approved.
[2021-12-10] VITALS (10 sets, daily range): BP systolic 86–115; BP diastolic 40–69; PULSE 76–88; RESP 18–20; TEMP 36.6–37.1; O2SAT 96–100
[2021-12-10] MEDS: SODIUM CHLORIDE 0.9% IV 250 ML 30 ML IV CONT (09:50)
[2021-12-10] MEDS: diphenhydrAMINE HCl CAP 25 MG CAPSULE PO (09:52)
[2021-12-10] MEDS: ACETAMINOPHEN 325 MG TABLET 650 MG PO (09:52)
[2021-12-10] MEDS: FUROSEMIDE INJ 40 MG/4 ML VIAL 20 MG IV PUSH (13:08)
== END 2022-03-10 23:59 | disposition home or self-care (01) ==
LOC: ANHCPCTRAN 08:03
PROVIDERS: PCP Internal Medicine; Visit Provider Internal Medicine Hematology & Oncology
DX: D64.9 Anemia, unspecified (principal)
CPT/HCPCS: 36415; 36430; 86850; 86900; 86901; 86920; 96374; A9270; J1940; J7050; P9016

== ENCOUNTER 2021-12-30 06:33 | Outpatient (CLI) | payer MEDICARE, MEDICAID, SELFPAY ==
--- NOTE | ~2021-12-30 | CT_ITS ---
EXAMINATION:CT diagnostic chest wo con DATE: 12/30/2021 07:07 INDICATION: Malignant neoplasm of lung. TECHNIQUE: Computed tomography (CT) of the chest was performed without intravenous contrast. Automate d exposure control and iterative reconstruction technique were employed. The dose-length product (DLP ) was 249.37 mGy-cm. COMPARISON: Chest CT 09/03/2021, 10/09/20, 12/27/19 FINDINGS: There is moderate emphysema. There are small pleural effusions, right worse than left. Ther e is a 6 mm nodule in right middle lobe. There are two 2-3 mm nodules in left upper lobe, stable from 12/27/2019, likely benign. A calcified right lung nodule and calcified right hilar lymph nodes are co nsistent with old granulomatous disease. There are airspace opacities in left upper lobe and superior segment left lower lobe in the left midlung zone with volume loss, consistent with radiation pneumon itis. There is mild atelectasis in the inferior left lung. There is passive atelectasis in dependent right lower lobe. There are changes of right hemithyroidectomy. Cardiomegaly is noted. There are michelle nary artery calcifications. No pericardial effusion. There is a chronic 2.8 cm mass in left adrenal g land measuring low-attenuation, consistent with an adenoma. There is thoracolumbar dextroscoliosis an d severe spondylosis. IMPRESSION: 1. Radiation pneumonitis again seen in left midlung zone. 2. Moderate emphysema. 3. Worsened small pleural effusions, right worse than left. 4. 6 mm nodule in right middle lobe, which measured 4 mm on 12/26/2021. This finding is indeterminate for metastatic disease. Reviewed, dictated and finalized at location B. IMPRESSION: 1. Radiation pneumonitis again seen in left midlung zone. 2. Moderate emphysema. 3. Worsened small pleural effusions, right worse than left. 4. 6 mm nodule in right middle lobe, which measured 4 mm on 12/26/2021. This fin ding is indeterminate for metastatic disease.
== END 2021-12-30 06:34 | disposition home or self-care (01) ==
PROVIDERS: PCP Internal Medicine; Visit Provider Internal Medicine Hematology & Oncology
DX: C34.11 Malignant neoplasm of upper lobe, right bronchus or lung (principal); J43.9 Emphysema, unspecified; J90 Pleural effusion, not elsewhere classified; R91.1 Solitary pulmonary nodule
CPT/HCPCS: 71250

== ENCOUNTER 2022-01-30 14:27 | Inpatient (IN) | payer MEDICARE, MEDICAID, SELFPAY ==
[2022-01-30] VITALS (9 sets, daily range): BP systolic 101–148; BP diastolic 50–85; PULSE 75–147; RESP 18–23; TEMP 36.3–36.7; O2SAT 98–100; BMI 25.7
--- NOTE | 2022-01-30 14:31 | ECG_ITS ---
Measurements Intervals Graham Rate: 95 P: 92 WV: 196 QRS: -39 QRSD: 155 T: 24 QT: 363 QTc: 458 Interpretive Statements SINUS RHYTHM LEFT AXIS DEVIATION RIGHT BUNDLE BRANCH BLOCK BASELINE ARTIFACT- I, II, III, AVR, AVL, AVF, V2, V4 ABNORMAL ECG COMPARED TO ECG 11/06/2021 01:02:49 NO SIGNIFICANT CHANGES Electronically Signed On 01-30-2022 15:36:54 CDT by Mik Cardona D.O.
[2022-01-30 14:51] LABS: Basophils Percent Auto 0.3 % (0.2-1.2); Eosinophils Absolute Auto 0.1 K/mm3 (0-0.3); Hemoglobin 7.8 g/dL (12.0-15.0); Immature Granulocyte Absolute 0.02 K/mm3 (0.00-0.031); Immature Granulocyte Percent A 0.3 % (0-0.5); Lymphocytes Absolute Auto 0.64 K/mm3 (0.9-3.2); Lymphocytes Percent Auto 10.5 % (18.3-44.2); Mean Corpuscular HGB Conc 28.9 g/dl (32-36); Mean Corpuscular Volume 96.8 fl (80-100); Mean Platelet Volume 9.5 fl (7.4-10.4); Monocytes Absolute Auto 0.5 K/mm3 (0.1-0.6); Monocytes Percent Auto 8.9 % (2.6-8.5); Neutrophils Absolute Auto 4.8 K/mm3 (1.3-6.7); Platelet Count Result 351 k/mm3 (150-375); Red Blood Count 2.79 M/mm3 (4.2-5.4); Red Cell Distribution Width 18.3 % (11.5-14.5); White Blood Count 6.1 K/mm3 (4.5-10.0)
[2022-01-30 15:04] LABS: Alanine Aminotransferase 14 U/L (6-35); Albumin Level 4.1 g/dL (3.5-5.1); Alkaline Phosphatase 49 U/L (38-126); Anion Gap 10 mmol/L (8-16); Aspartate Amino Transferase 23 U/L (14-36); Bilirubin,Total 0.4 mg/dL (0.2-1.3); Blood Urea Nitrogen 11 mg/dL (7-17); Calcium 9.6 mg/dL (8.4-10.2); Carbon Dioxide 24 mmol/L (22-30); Chloride 101 mmol/L (98-107); Estimated CRCL calculation 56 ml/min; Estimated Glomerular Filt Rate > 60; Glucose 122 mg/dL (65-110); Lipase 73 U/L (23-300); Potassium 4.2 mmol/L (3.4-5.0); Sodium 135 mmol/L (137-145)
[2022-01-30 15:09] LABS: Hypochromasia 1+ (NORMAL); Platelet Estimate Adequate (Adequate)
[2022-01-30 15:10] LABS: Ovalocytes 1+ (NORMAL); Schistocytes None Seen (NORMAL)
[2022-01-30 16:29] LABS: Appearance Urine Cloudy (Clear); Bilirubin Urine Negative (Negative); Blood Urine 2+ (Negative); Color Urine Yellow (Yellow); Glucose Urine UA Negative (Negative); Ketones Urine Negative (Negative); Leukocyte Esterase Ur 3+ LEU/UL (Negative); Nitrate Urine Negative (Negative); Protein Urine 1+ mg/dL (Negative); Specific Grav Ur 1.015 (1.001-1.035); Urobilinogen Urine 0.2 mg/dL (<2.0)
[2022-01-30 16:34] LABS: Bacteria Urine Trace /hpf; Mucus Urine Rare /lpf; RBC Urine 21-50 /hpf (0-2); WBC Clumps Urine Present /HPF; WBC Urine >75 /hpf
--- NOTE | 2022-01-30 16:35 | ED.GENADULT ---
HPI - General Adult General Chief complaint: Abdominal Pain Stated complaint: L shoulder and abd pain Time Seen by Provider: 01/30/22 15:57 History of Present Illness HPI narrative: This is an 86-year-old female from the [place] [facility] presenting ED with a chief complaint of left shoulder pain and abdominal pain. When I interviewed the patient she said she was no longer having abdominal pain. However she said she was having sharp stabbing pain throughout her abdomen last night that prevented her from sleeping. Patient notes that she has been having dark tarry stools for the last several weeks. patient denies nausea vomiting or diarrhea. She denies fever chills. Related Data Home Medications Medication Instructions Recorded Confirmed acetaminophen 500 mg tablet 500 mg PO Q4H PRN Pain (Scale 07/31/19 11/03/21 (Tylenol Extra Strength) Score 1-3) ascorbate calcium (vitamin C) 500 500 mg PO DAILY 06/16/21 11/03/21 mg tablet cetirizine 10 mg tablet (Zyrtec) 10 mg PO DAILY 06/24/21 11/03/21 melatonin 1 mg tablet 1 mg PO QHS 08/27/21 11/03/21 calcium carbonate 250 mg-vitamin 1 tablet PO DAILY 10/21/21 11/03/21 D3 3.125 mcg (125 unit) tablet (Oyster Shell + D3) fluticasone propionate 50 1 spray intranasal DAILY 10/21/21 11/03/21 mcg/actuation nasal spray,suspension montelukast 10 mg tablet 10 mg PO HS 10/21/21 11/03/21 Allergies Allergy/AdvReac Type Severity Reaction Status Date / Time atenolol Allergy Severe BLURRED Verified 12/10/21 09:27 VISION fenofibrate Allergy Severe GERNERAL Verified 12/10/21 09:27 MUSCLE PAIN methylprednisolone Allergy Severe ANXIETY Verified 12/10/21 09:27 BLURRED VISION naproxen Allergy Severe CHEST PAINS Verified 12/10/21 09:27 Quinolones Allergy Severe BLURRED Verified 12/10/21 09:27 VISION azelastine Allergy Mild Blurry Verified 12/10/21 09:27 Vision fexofenadine Allergy Mild Blurry Verified 12/10/21 09:27 Vision medroxyprogesterone Allergy Mild Unknown Verified 12/10/21 09:27 pseudoephedrine Allergy Mild Blurry Verified 12/10/21 09:27 Vision celecoxib Allergy Unknown ABD. Verified 12/10/21 09:27 PAIN/DIZZINESS/NAUSEA erythromycin base Allergy Unknown UNKNOWN Verified 12/10/21 09:27 hydrocodone Allergy Unknown CONFUSION/A Verified 12/10/21 09:27 NXIOUS iohexol Allergy Unknown contrast Verified 12/10/21 09:27 [From contrast - CT, X-RAY] media: could taste for 3 days , confusion moxifloxacin Allergy Unknown Unknown Verified 12/10/21 09:27 NSAIDS (Non-Steroidal Allergy Unknown FEELS LIKE Verified 12/10/21 09:27 Anti-Inflamma LOSS OF LIFE butorphanol Allergy Unknown Verified 12/10/21 09:27 cephalexin [From Keflex] Allergy Unknown Verified 12/10/21 09:27 doxycycline Allergy Unknown Verified 12/10/21 09:27 Macrolide Antibiotics Allergy Unknown Verified 12/10/21 09:27 risedronate sodium Allergy Unknown Verified 12/10/21 09:27 cefuroxime AdvReac Mild Nausea and Verified 12/10/21 09:27 Vomiting clarithromycin AdvReac Mild Nausea Verified 12/10/21 09:27 iodine AdvReac Mild Nausea,WEAK Verified 12/10/21 09:27 NESS oxycodone AdvReac Unknown REALLY Verified 12/10/21 09:27 PUTS ME IN OUTER SPACE simvastatin AdvReac Unknown CONFUSION Verified 12/10/21 09:27 FROM STATINS acetaminophen [From Vicodin] AdvReac Unknown Verified 12/10/21 09:27 Contrast Media Allergy Unknown COULD Uncoded 12/10/21 09:27 TAST FOR 3 DAYS ; CONFUSION Review of Systems Review of Systems: CONSTITUTIONAL: Denies night sweats. EYES: No eye pain ENT: Denies rhinorrhea CARDIOVASCULAR: Denies palpitations RESPIRATORY: Denies hemoptysis GASTROINTESTINAL: Denies hematemesis GENITOURINARY: Denies hematuria. SKIN: Denies rash MUSCULOSKELETAL: Denies myalgia. NEUROLOGIC: Denies weakness. PSYCHIATRIC: Denies delusions PMFSH Past Medical History Medical History (Reviewed
[2022-01-30 16:36] LABS: Add Urine Microscopic? YES
[2022-01-30] MEDS: ACETAMINOPHEN 500 MG TABLET 1000 MG PO (16:57)
[2022-01-30] MEDS: PANTOPRAZOLE SODIUM IV 40 MG VIAL 80 MG IV PUSH (16:59)
[2022-01-30 18:57] LABS: Hematocrit 24.8 % (37.0-47.0); Hemoglobin 7.3 g/dL (12.0-15.0)
[2022-01-30 19:23] LABS: SARS-CoV-2 RNA PCR Negative
--- NOTE | 2022-01-30 20:25 | PM.IMHP ---
H&P: HPI History of Present Illness Date/Time: 01/30/22 20:25 Chief Complaint: melena Narrative: this is an 86-year-old female senior care resident, wheelchair bound, with past medical history significant for hiatal hernia, gastritis, occult GI bleed, hip fracture, patient is nonweightbearing, this is apparently after patient fracture her hip, right heel ulcer. Patient was brought for evaluation to the emergency room due to acute onset abdominal pain along with episode of melena, patient denies any bright red blood per rectum, hematemesis, has had poor appetite, patient noted had endoscopy in October. At the time of my visit patient denied any pain in her abdomen however she has been complaining of left shoulder pain but denies the use of ibuprofen on daily basis or any use. Preliminary workup was significant for hemoglobin of 7, urinalysis showed more than 75 WBCs per high-power field. Review of Systems Review of Systems: Abdominal pain, episode of melena, left shoulder pain, Constitutional: Constitutional: Denies chills, Denies fever(s), Denies malaise, Reports poor appetite and Reports weight loss Eyes: Eyes: Denies change in vision ENT: Denies dysphagia and Denies odynophagia Cardiovascular: Cardiovascular: Denies chest pain, Denies irregular heart rhythm, Denies dyspnea, Denies orthopnea and Denies paroxysmal nocturnal dyspnea Respiratory: Respiratory: Denies chest congestion, Denies cough and Denies pain on inspiration Gastrointestinal: Gastrointestinal: Reports abdominal pain, Reports melena, Denies diarrhea, Denies nausea and Denies vomiting Genitourinary: Genitourinary: Denies dysuria Musculoskeletal: Musculoskeletal: Reports other ( right heel ulcer, nonweightbearing, wheelchair bound.) Integumentary/Breasts: Skin/Breast: Denies rash and Reports skin ulcer ( right heel) Neurologic: Denies focal weakness and Denies Sensory deficit (Neuro) Psychiatric: Psychiatric: Reports no additional psychiatric complaints and Reports as per HPI Endocrine: Endocrine: Denies cold intolerance, Denies flushing, Denies heat intolerance, Denies polyphagia, Denies polydipsia and Denies palpitations Hematologic/Lymphatic: Hematologic/Lymphatic: Reports no additional hematologic/lymphatic complaints and Reports as per HPI Allergic/Immunologic: Allergic/Immunologic: Reports no additional allergic/immunologic complaints and Reports as per HPI [facility] Past Medical History Medical History (Updated 01/31/22 @ 03:12 by Tasha Duke MD) Acute on chronic blood loss anemia Anxiety Arthritis of right glenohumeral joint Cardiomyopathy Cataract COPD (chronic obstructive pulmonary disease) COVID CVA (cerebral vascular accident) Eczema Hypertension Hypothyroidism Malignant neoplasm of upper lobe, left bronchus or lung Completed radiation therapy in 2020 Occult blood in stools Osteoarthritis Osteoporosis Parathyroid disorder Pulmonary nodule Symptomatic anemia Tobacco abuse Surgical History Surgical History H/O dilation and curettage 2008 H/O removal of cyst Under left armpit History of knee joint replacement Left 2009 Family History Family History Sibling Family history of coronary artery disease Father Respiratory failure Mother Breast cancer Son Myositis ossificans progressiva Other Family history of arthritis Family history of cardiovascular disease Family history of chronic obstructive pulmonary disease Hypertension Social History Social History Social History: The patient lives in an apartment building by herself typically but she tells me that she has been in the senior care for rehab.. She is . She is retired. She is a former smoker. She denies any alcohol or illicit drugs. Timur (son) and rashid (daughter in-law) lynda perez
--- NOTE | 2022-01-30 22:25 | ADMGEN ---
This patient, Mercy Dobbs, was admitted to Medical Room 344-01. Patient/family oriented to hospital policies and general routines including ID bracelet, bed and alarms, visiting hours, pain management, procedures, bathroom and other care routines, personal items, smoking policy, room service/diet, and visiting hours. Information on how to activate the Rapid Response Team has been discussed. Patient/Family are encouraged to report perceived risks to care and to ask questions if they do not understand what they are told or what they should do.
[2022-01-31] VITALS (9 sets, daily range): BP systolic 126–145; BP diastolic 58–68; PULSE 84–93; RESP 16–20; TEMP 36.5–36.9; O2SAT 96–100
[2022-01-31 00:35] LABS: Hematocrit 26.5 % (37.0-47.0); Hemoglobin 7.7 g/dL (12.0-15.0)
[2022-01-31 06:04] LABS: Hematocrit 24.4 % (37.0-47.0); Hemoglobin 7.3 g/dL (12.0-15.0)
[2022-01-31] MEDS: FLUTICASONE PROPIONATE 0.05% NA SPR 16 GM BTL (*BKC) 1 SPRAY NASAL (09:51)
[2022-01-31] MEDS: LACTATED RINGERS 1,000 ML 75 ML IV CONT (09:54)
[2022-01-31 11:51] LABS: Hematocrit 25.1 % (37.0-47.0); Hemoglobin 7.2 g/dL (12.0-15.0)
[2022-01-31 14:24] LABS: Iron 25 ug/dL (37-170)
[2022-01-31 14:27] LABS: Percent Iron Saturation 7 % (20-50)
--- NOTE | 2022-01-31 17:39 | PM.IMPN ---
Progress Note: A&P Assessment and Plan (1) Acute UTI: Code(s): N39.0 - Urinary tract infection, site not specified Status: Acute Assessment and Plan: UA with 3+ leukocytes and >75 WBC. Given Rocephin 1 gram IV in ED, but changed to levaquin 750 mg IV by admitting provider. Continue antibiotics and adjust per urine culture (2) Acute on chronic blood loss anemia: Code(s): D62 - Acute posthemorrhagic anemia Status: Acute Assessment and Plan: H/H 7.8 on admission. Her most recent Hgb 10 on 01/06/22 she reported multiple black stools prior to admission Trend H/H. Monitor for bleeding. GI consulted and appreciate recommendations. Clear liquid diet and NPO after midnight for GI evaluation. Serum iron 25, TIBC 338, sat 7%, Ferritin 21- she reports prior iron transfusions and is currently already on oral iron. give Venofer 500 mg IV x1 now. (3) COPD (chronic obstructive pulmonary disease): Qualifiers: COPD type: unspecified COPD Qualified Code(s): J44.9 - Chronic obstructive pulmonary disease, unspecified Code(s): J44.9 - Chronic obstructive pulmonary disease, unspecified Status: Chronic Assessment and Plan: chronic, stable. Not in acute exacerbation. (4) Arthritis of right glenohumeral joint: Code(s): M19.011 - Primary osteoarthritis, right shoulder Status: Acute Assessment and Plan: Chronic, stable. Continue PRN acetaminophen and BID neurontin (5) Ulcer of right heel: Code(s): L97.419 - Non-pressure chronic ulcer of right heel and midfoot with unspecified severity Status: Acute Assessment and Plan: Contact OK for wound care directions. consult Wound RN for evaluation. (6) Acute upper GI bleeding: Code(s): K92.2 - Gastrointestinal hemorrhage, unspecified Status: Acute Assessment and Plan: +melena report on admission. H/H low. GI consulted. continue IV protonix BID Plan CODE STATUS; FULL CODE Disposition: return to alf when stable. Time Spent With Patient Time with patient: 25 - 35 minutes Subjective Date/time seen: 01/31/22 17:39 Interval history: Patient lying in bed with friend at her bedside. She endorses left scapula pain. She denies recent injury or trauma. No paresthesia or paralysis. She denies chest pain, SOB, dizziness or palpitations. Nursing denies stools since admission. Review of Systems Review of Systems: All systems reviewed & are unremarkable except as noted in HPI and below Exam Narrative: General: No acute distress.?Frail older adult female lying in bed. Mental Status/Psych: Awake, alert and oriented x3 with clear speech. Neutral mood and affect. Pleasant and cooperative. Skin: Skin fair, warm, and without rashes or lesions. Left heel with 2 nickel-sized, circular ulcerations, with black eschar to wound bed. No drainage or surrounding erythema. tender to palpation. Fair turgor.? HEENT: Normocephalic. Conjunctivae are clear. Sclera is non-icteric. EOM intact. PERRL. Grossly normal hearing. Oral mucosa moist. Tongue midline. Oropharynx within normal limits. Neck: Supple. Trachea midline. No JVD. Heart: S1 and S2 regular rate and rhythm. 3/6 systolic murmur auscultated in all meza, but loudest to LSB 2nd intercostal space. No gallops or rubs auscultated. Chest: Respirations even and unlabored. Lung sounds are clear to auscultation in all lobes bilaterally without wheezes, rhonchi, or rales. Abdomen: Soft, round and non-tender to palpation.? Bowel sounds present in all 4 quadrants. No guarding. Extremities:? Grossly normal ROM all extremities. No edema. Radial +2 and dorsalis pedis pulses +1 bilaterally. Neurological: No focal deficits. Cranial nerves 2-12 grossly intact. Sensation intact BLE. No facial droop. Objective Data Vital Signs Vital Signs: Vital Signs - 24 hr 01/30/22 18:01 01/30/22 18:31 01/30/22 22:37 Temperature 98.1 F
[2022-01-31] MEDS: FERROUS SULFATE 324 MG TABLET PO (17:46)
[2022-01-31] MEDS: MENTHOL 10% / METHYL SALICYLATE 15% 57 GM TUBE 1 APPLIC TOPICAL (17:46)
[2022-01-31] MEDS: GABAPENTIN 100 MG CAPSULE 200 MG PO (17:46)
[2022-01-31] MEDS: CALCIUM/VITAMIN D 250 MG TABLET 1 TABLET PO (17:46)
[2022-01-31] MEDS: IRON SUCROSE COMPLEX 500 MG in SODIUM CHLORIDE 0.9% IV 250 ML 78.57 MG IVPB (18:25)
[2022-01-31] MEDS: MELATONIN 3 MG TABLET PO (21:25)
[2022-01-31] MEDS: PANTOPRAZOLE SODIUM IV 40 MG VIAL IV PUSH (21:25)
[2022-01-31] MEDS: MONTELUKAST SODIUM 10 MG TABLET PO (21:25)
[2022-01-31] MEDS: ACETAMINOPHEN 500 MG TABLET PO (23:01)
[2022-02-01] VITALS (19 sets, daily range): BP systolic 105–163; BP diastolic 52–90; PULSE 65–93; RESP 16–20; TEMP 35.8–36.9; O2SAT 96–100
--- NOTE | 2022-02-01 01:37 | PC.NURSE ---
Daylight Savings Time For Daylight Savings Time Ending in the Fall - Clocks are moved back. For Daylight Savings Time Beginning in the Spring - Clocks are moved ahead. For [facility], the time of change occurs at 0200 hrs. Time is taken from the traffic observer. This entry on the patient's chart recognizes the change in time reflected during documentation. Example: 2 entries for vital signs may be charted for 0200 hrs.
[2022-02-01] MEDS: LACTATED RINGERS 1,000 ML 75 ML IV CONT (02:37)
[2022-02-01] MEDS: ACETAMINOPHEN 500 MG TABLET PO ×2 (02:39→10:29)
[2022-02-01 06:50] LABS: Hematocrit 22.3 % (37.0-47.0); Mean Corpuscular HGB Conc 29.1 g/dl (32-36); Mean Corpuscular Hemoglobin 27.9 pg (26-34); Mean Corpuscular Volume 95.7 fl (80-100); Mean Platelet Volume 9.3 fl (7.4-10.4); Platelet Count Result 259 k/mm3 (150-375); Red Blood Count 2.33 M/mm3 (4.2-5.4); Red Cell Distribution Width 17.6 % (11.5-14.5); White Blood Count 3.3 K/mm3 (4.5-10.0)
[2022-02-01 06:53] LABS: Anion Gap 10 mmol/L (8-16); Blood Urea Nitrogen 10 mg/dL (7-17); Calcium 8.7 mg/dL (8.4-10.2); Carbon Dioxide 24 mmol/L (22-30); Chloride 102 mmol/L (98-107); Estimated Glomerular Filt Rate > 60; Glucose 92 mg/dL (65-110); Potassium 3.6 mmol/L (3.4-5.0); Sodium 136 mmol/L (137-145)
[2022-02-01 06:55] LABS: Hemoglobin 6.5 g/dL (12.0-15.0)
--- NOTE | 2022-02-01 07:52 | WPDANESEPP ---
Anes - Eval Pre Procedure Procedure: EGD Date/Time: 02/01/22 07:52 Surgeon: Braulio Preop Diagnosis: acute on chronic anemia Pre Op Diagnosis: gi bleed Patient Data Age: 86 Gender: F Height: 1.4 m Weight: 50.3 kg Last Vital Signs Temp 97.5 F L 02/01/22 05:17 Pulse 81 02/01/22 05:17 Resp 18 02/01/22 05:17 BP 131/90 02/01/22 05:17 Pulse Ox 96 02/01/22 05:17 O2 Del Method Room Air 01/31/22 20:00 Allergies Allergy/AdvReac Type Severity Reaction Status Date / Time atenolol Allergy Severe BLURRED Verified 01/30/22 23:41 VISION fenofibrate Allergy Severe GERNERAL Verified 01/30/22 23:41 MUSCLE PAIN methylprednisolone Allergy Severe ANXIETY Verified 01/30/22 23:41 BLURRED VISION naproxen Allergy Severe CHEST PAINS Verified 01/30/22 23:41 Quinolones Allergy Severe BLURRED Verified 01/30/22 23:41 VISION azelastine Allergy Mild Blurry Verified 01/30/22 23:41 Vision fexofenadine Allergy Mild Blurry Verified 01/30/22 23:41 Vision medroxyprogesterone Allergy Mild Unknown Verified 01/30/22 23:41 pseudoephedrine Allergy Mild Blurry Verified 01/30/22 23:41 Vision celecoxib Allergy Unknown ABD. Verified 01/30/22 23:41 PAIN/DIZZINESS/NAUSEA erythromycin base Allergy Unknown UNKNOWN Verified 01/30/22 23:41 hydrocodone Allergy Unknown CONFUSION/A Verified 01/30/22 23:41 NXIOUS iohexol Allergy Unknown contrast Verified 01/30/22 23:41 [From contrast - CT, X-RAY] media: could taste for 3 days , confusion moxifloxacin Allergy Unknown Unknown Verified 01/30/22 23:41 NSAIDS (Non-Steroidal Allergy Unknown FEELS LIKE Verified 01/30/22 23:41 Anti-Inflamma LOSS OF LIFE butorphanol Allergy Unknown Verified 01/30/22 23:41 cephalexin [From Keflex] Allergy Unknown Verified 01/30/22 23:41 doxycycline Allergy Unknown Verified 01/30/22 23:41 Macrolide Antibiotics Allergy Unknown Verified 01/30/22 23:41 risedronate sodium Allergy Unknown Verified 01/30/22 23:41 cefuroxime AdvReac Mild Nausea and Verified 01/30/22 23:41 Vomiting clarithromycin AdvReac Mild Nausea Verified 01/30/22 23:41 iodine AdvReac Mild Nausea,WEAK Verified 01/30/22 23:41 NESS oxycodone AdvReac Unknown REALLY Verified 01/30/22 23:41 PUTS ME IN OUTER SPACE simvastatin AdvReac Unknown CONFUSION Verified 01/30/22 23:41 FROM STATINS acetaminophen [From Vicodin] AdvReac Unknown Verified 01/30/22 23:41 Contrast Media Allergy Unknown COULD Uncoded 01/30/22 23:41 TAST FOR 3 DAYS ; CONFUSION Home Medications Medication Instructions Recorded Confirmed Type acetaminophen 500 mg tablet 1,000 mg PO QAM 07/31/19 01/31/22 History (Tylenol Extra Strength) ascorbate calcium (vitamin C) 500 500 mg PO DAILY 06/16/21 01/31/22 History mg tablet melatonin 1 mg tablet 1 mg PO QHS 08/27/21 01/31/22 History calcium carbonate 250 mg-vitamin 1 tablet PO BID 10/21/21 01/31/22 History D3 3.125 mcg (125 unit) tablet (Oyster Shell + D3) fluticasone propionate 50 1 spray intranasal QAM 10/21/21 01/31/22 History mcg/actuation nasal spray,suspension montelukast 10 mg tablet 10 mg PO QHS 10/21/21 01/31/22 History acetaminophen 500 mg tablet 500 mg PO Q4H PRN Pain 01/30/22 01/31/22 History (Tylenol Extra Strength) amoxicillin 500 mg tablet See Rx Instructions .Route .COMPLEX 01/30/22 01/31/22 History gabapentin 100 mg capsule 200 mg PO BID 01/30/22 01/31/22 History mineral oil (Fleet Mineral Oil See Rx Instructions .Route 01/30/22 01/31/22 History enema) .COMPLEX PRN Constipation potassium chloride 20 mEq 20 meq PO DAILY 01/30/22 01/31/22 History tablet,extended release cholecalciferol (vitamin D3) 25 1,000 unit PO QAM 01/31/22 01/31/22 History mcg (1,000 unit) capsule cyanocobalamin (vitamin B-12) 1,000 mcg PO QAM 01/31/22 01/31/22 History 1,000 mcg tablet (Vitamin B-12) ferrous sulfate 325 mg (65 mg 3
--- NOTE | 2022-02-01 08:00 | WPDGICN ---
Assessment and Plan Assessment and plan (1) Melena: Code(s): K92.1 - Melena Status: Acute Assessment and Plan: Patient presented with melenic stools suggesting upper GI bleeding source. Patient known to have Wing ulcers within the hiatal hernia in October. Plan for follow-up EGD because of decline in hemoglobin. Continue PPI therapy long-term suggested. (2) Occult blood in stools: Code(s): R19.5 - Other fecal abnormalities Status: Acute Assessment and Plan: Occult blood in stool suggest to confirm the patient has ongoing irritation. (3) Acute on chronic blood loss anemia: Code(s): D62 - Acute posthemorrhagic anemia Status: Acute Assessment and Plan: Patient with chronic anemia. Might be somewhat lower than typical. Presumably related to her melenic stools. Plan for EGD today. Will transfuse to stable hemoglobin. PPI is suggest to such as Protonix and continue this care home. Avoid NSAIDs. (4) Acute UTI: Code(s): N39.0 - Urinary tract infection, site not specified Status: Acute GI Consult Note Consult date/time: 02/01/22 08:00 Reason for consult: Anemia and melena HPI: Mercy Dobbs is a 86 year old female I am asked to see at the request of the hospitalist service because of possible GI bleeding. Patient currently resident of retirement. Past blackish stools. Complained of abdominal pain and was sent to the emergency room. Upon arriving in the emergency room her abdominal pain apparently improved promptly. Patient was found to be significantly anemic. Stool was Hemoccult positive with dark blackish melenic stool described. Patient admitted for further evaluation. Patient has difficulty with complete history. But review of old records revealed patient was admitted in October with similar findings of melenic stools. EGD at that time revealed Wing ulcers within the hiatal hernia. Patient apparently was maintained on Protonix at that time. However upon presentation to the emergency room yesterday. No acid reducing agents were prescribed. Patient no longer taking PPIs previously recommended. Patient herself denies abdominal pain. At the time of presentation was also found to have a urinary tract infection. Review of Systems Review of Systems: Review of systems noncontributory. Difficult to obtain given early dementia. [facility] Past Medical History Medical History Acute on chronic blood loss anemia Anxiety Arthritis of right glenohumeral joint Cardiomyopathy Cataract COPD (chronic obstructive pulmonary disease) COVID CVA (cerebral vascular accident) Eczema Hypertension Hypothyroidism Malignant neoplasm of upper lobe, left bronchus or lung Completed radiation therapy in 2020 Occult blood in stools Osteoarthritis Osteoporosis Parathyroid disorder Pulmonary nodule Symptomatic anemia Tobacco abuse Surgical History Surgical History H/O dilation and curettage 2008 H/O removal of cyst Under left armpit History of knee joint replacement Left 2010 Family History Family History Sibling Family history of coronary artery disease Father Respiratory failure Mother Breast cancer Son Myositis ossificans progressiva Other Family history of arthritis Family history of cardiovascular disease Family history of chronic obstructive pulmonary disease Hypertension Social History Social History Social History: The patient lives in an apartment building by herself typically but she tells me that she has been in the retirement for rehab.. She is . She is retired. She is a former smoker. She denies any alcohol or illicit drugs. Timur (son) and rashid (daughter in-law) lynda perez
[2022-02-01] MEDS: LACTATED RINGERS 1,000 ML 150 ML IV CONT (09:01)
[2022-02-01] MEDS: BENZOCAINE (*SP) 60 ML SPRAY CAN (HURRICAINE) 1 SPRAY MUCOUS MEM (09:02)
--- NOTE | 2022-02-01 09:11 | P.PNAN_ITS ---
Anes - Eval Final PreProcedure Day of Procedure 02/01/22 09:11 Patient weight: normal Heart: regular rate and rhythm Lungs: clear to auscultation Airway: Mallampati scale class II Neurological: alert and oriented Last oral intake: >/= 8 hours ASA classification: III Emergent: no Anesthetic plan: proceed Anesthesia type and monitoring: general GIVS and standard monitoring Results Review: All pre-operative results and documents have been reviewed as part of the pre- operative evaluation. Informed Consent: The patient's anesthetic plan and its attendant risks and benefits were discussed with the patient.. Questions were solicited and answers provided to the satisfaction of the patient. I was present for entire case but late entry note.
[2022-02-01] MEDS: SODIUM CHLORIDE 0.9% IV 250 ML 30 ML IV CONT (10:28)
[2022-02-01] MEDS: NITROFURANTOIN MONOHYD MACROCR 100 MG CAP PO ×2 (10:28→21:12)
[2022-02-01] MEDS: polyethylene glycoL 3350 17 GM POWD.PACK PO (10:28)
[2022-02-01] MEDS: FLUTICASONE PROPIONATE 0.05% NA SPR 16 GM BTL (*BKC) 1 SPRAY NASAL (10:28)
[2022-02-01] MEDS: ASCORBIC ACID 500 MG TABLET PO (10:29)
[2022-02-01] MEDS: CYANOCOBALAMIN 1,000 MCG TABLET 1000 MCG PO (10:29)
[2022-02-01] MEDS: CALCIUM/VITAMIN D 250 MG TABLET 1 TABLET PO ×2 (10:30→17:20)
[2022-02-01] MEDS: GABAPENTIN 100 MG CAPSULE 200 MG PO ×2 (10:30→17:20)
[2022-02-01] MEDS: FERROUS SULFATE 324 MG TABLET PO ×2 (10:31→17:20)
[2022-02-01] MEDS: ACETAMINOPHEN 500 MG TABLET 1000 MG PO (10:31)
[2022-02-01] MEDS: CHOLECALCIFEROL 1,000 UNITS TABLET 1000 UNITS PO (10:32)
[2022-02-01] MEDS: MENTHOL 10% / METHYL SALICYLATE 15% 57 GM TUBE 1 APPLIC TOPICAL ×2 (10:33→17:20)
--- NOTE | 2022-02-01 13:41 | PM.IMPN ---
Progress Note: A&P Assessment and Plan (1) Acute UTI: Code(s): N39.0 - Urinary tract infection, site not specified Status: Acute Assessment and Plan: UA with 3+ leukocytes and >75 WBC. Given Rocephin 1 gram IV in ED, but changed to levaquin 750 mg IV by admitting provider 01/3102/01/22 urine culture showing enterococcus species. 10/23/21 urine showed e.coli and enterococcus species sensitive to macrobid. Patient denies CVA tenderness or fevers. Change to macrobid 100 mg PO BID x 5 days. Repeat BMP in am. (2) Acute on chronic blood loss anemia: Code(s): D62 - Acute posthemorrhagic anemia Status: Acute Assessment and Plan: H/H 7.11/22 on admission. Her most recent Hgb 10 on 01/06/22 she reported multiple black stools prior to admission Trend H/H. Monitor for bleeding. GI consulted and appreciate recommendations. Diet advancement per GI Serum iron 25, TIBC 338, sat 7%, Ferritin 21- she reports prior iron transfusions and is currently already on oral iron. give Venofer 500 mg IV x1 01/31/22. 02/01/22 Hgb 6.5/Hct 22.3%. Type and cross and transfuse 1 unit PRBC. Fecal occult stool x1. Repeat H/H 2 hours after blood. EGD with mild localized acute superficial gastritis in the fundus, that is erythematous and edematous. contact bleeding noted. Biopsies taken. (3) COPD (chronic obstructive pulmonary disease): Qualifiers: COPD type: unspecified COPD Qualified Code(s): J44.9 - Chronic obstructive pulmonary disease, unspecified Code(s): J44.9 - Chronic obstructive pulmonary disease, unspecified Status: Chronic Assessment and Plan: chronic, stable. Not in acute exacerbation. (4) Arthritis of right glenohumeral joint: Code(s): M19.011 - Primary osteoarthritis, right shoulder Status: Acute Assessment and Plan: Chronic, stable. Continue PRN acetaminophen and BID neurontin (5) Ulcer of right heel: Qualifiers: Non-pressure ulcer stage: unspecified non-pressure ulcer stage Qualified Code(s): L97.419 - Non-pressure chronic ulcer of right heel and midfoot with unspecified severity Code(s): L97.419 - Non-pressure chronic ulcer of right heel and midfoot with unspecified severity Status: Acute Assessment and Plan: Contact [place] for wound care directions. consult Wound RN for evaluation. (6) Acute upper GI bleeding: Code(s): K92.2 - Gastrointestinal hemorrhage, unspecified Status: Acute Assessment and Plan: +melena report on admission. H/H low. GI consulted. Changed to protonix 40 mg PO daily for gastritis as above. Plan CODE STATUS; FULL CODE Disposition: return to correction when stable. Time Spent With Patient Time with patient: 15 - 25 minutes Subjective Date/time seen: 02/01/22 13:41 Interval history: She still has left scapula pain but Santhosh-rueda ointment helps. She denies stool today. EGD was completed this morning. She denies nausea, vomiting, abdominal pain, dysuria or flank pain. Review of Systems Review of Systems: All systems reviewed & are unremarkable except as noted in HPI and below Exam Narrative: General: No acute distress.?Frail, lying in bed. Mental Status/Psych: Awake, alert and oriented x3 with clear speech. Neutral mood and affect. Pleasant and cooperative. Skin: Skin fair, warm, and without rashes or lesions. Left heel dressing clean, dry and intact. Tender to palpation. Fair turgor.? HEENT: Normocephalic. Pupils equal and round. Grossly normal hearing. Oral mucosa moist. Neck: No JVD. Heart: S1 and S2 regular rate and rhythm. 3/6 systolic murmur auscultated in all meza, but loudest to LSB 2nd intercostal space. No gallops or rubs auscultated. Chest: Respirations even and unlabored. Lung sounds are clear to auscultation in all lobes bilaterally without wheezes, rhonchi, or rales. Abdomen: Soft, round and non-tender to palpation.? Bowel sounds present in all 4 q
[2022-02-01 15:51] LABS: Hematocrit 28.1 % (37.0-47.0); Hemoglobin 8.5 g/dL (12.0-15.0)
[2022-02-01] MEDS: MELATONIN 3 MG TABLET PO (21:12)
[2022-02-01] MEDS: MONTELUKAST SODIUM 10 MG TABLET PO (21:12)
[2022-02-02] VITALS (10 sets, daily range): BP systolic 107–130; BP diastolic 50–58; PULSE 68–99; RESP 18–20; TEMP 36.5–36.9; O2SAT 95–98; BMI 25.7
[2022-02-02] MEDS: ACETAMINOPHEN 500 MG TABLET PO ×2 (05:01→21:14)
[2022-02-02 05:42] LABS: Anion Gap 11 mmol/L (8-16); Blood Urea Nitrogen 11 mg/dL (7-17); Carbon Dioxide 26 mmol/L (22-30); Chloride 102 mmol/L (98-107); Estimated Glomerular Filt Rate > 60; Glucose 94 mg/dL (65-110); Hematocrit 28.1 % (37.0-47.0); Hemoglobin 8.5 g/dL (12.0-15.0); Mean Corpuscular HGB Conc 30.2 g/dl (32-36); Mean Corpuscular Hemoglobin 28.6 pg (26-34); Mean Corpuscular Volume 94.6 fl (80-100); Mean Platelet Volume 9.6 fl (7.4-10.4); Platelet Count Result 278 k/mm3 (150-375); Red Blood Count 2.97 M/mm3 (4.2-5.4); Red Cell Distribution Width 16.8 % (11.5-14.5); Sodium 139 mmol/L (137-145); White Blood Count 4.6 K/mm3 (4.5-10.0)
[2022-02-02] MEDS: CHOLECALCIFEROL 1,000 UNITS TABLET 1000 UNITS PO (09:26)
[2022-02-02] MEDS: polyethylene glycoL 3350 17 GM POWD.PACK PO (09:26)
[2022-02-02] MEDS: MENTHOL 10% / METHYL SALICYLATE 15% 57 GM TUBE 1 APPLIC TOPICAL ×2 (09:26→17:18)
[2022-02-02] MEDS: ASCORBIC ACID 500 MG TABLET PO (09:27)
[2022-02-02] MEDS: ACETAMINOPHEN 500 MG TABLET 1000 MG PO (09:27)
[2022-02-02] MEDS: NITROFURANTOIN MONOHYD MACROCR 100 MG CAP PO ×2 (09:27→20:51)
[2022-02-02] MEDS: POTASSIUM CHLORIDE 20 MEQ TABLET 60 MEQ PO (09:27)
[2022-02-02] MEDS: CYANOCOBALAMIN 1,000 MCG TABLET 1000 MCG PO (09:28)
[2022-02-02] MEDS: FLUTICASONE PROPIONATE 0.05% NA SPR 16 GM BTL (*BKC) 1 SPRAY NASAL (09:28)
[2022-02-02] MEDS: CALCIUM/VITAMIN D 250 MG TABLET 1 TABLET PO ×2 (09:28→17:19)
[2022-02-02] MEDS: FERROUS SULFATE 324 MG TABLET PO ×2 (09:28→17:18)
[2022-02-02] MEDS: PANTOPRAZOLE 40 MG TABLET PO (09:28)
[2022-02-02] MEDS: GABAPENTIN 100 MG CAPSULE 200 MG PO ×2 (09:28→17:18)
--- NOTE | 2022-02-02 14:32 | WPDGIPROGNO ---
Progress Note: A&P Assessment and Plan (1) Anemia: Code(s): D64.9 - Anemia, unspecified Status: Acute Assessment and Plan: Patient with anemia which seems to be chronic. Repeat stool Hemoccult pending. Patient denies any obvious blood in her stools. Reported to be positive in the emergency room. No actively at this time plan to advance diet. Continue PPI therapy may need this long-term. (2) Acute UTI: Code(s): N39.0 - Urinary tract infection, site not specified Status: Acute (3) Gastritis: Code(s): K29.70 - Gastritis, unspecified, without bleeding Status: Acute Assessment and Plan: Gastritis identified at time of EGD. Suggest continuing Protonix may need to use this long-term. Avoid NSAIDs. Biopsy taken is pending. Appeared benign grossly. Subjective Date/time seen: 02/02/22 14:32 Patient alert more comfortable today after transfusion yesterday. Patient denies any obvious blood in her stools. Tolerating diet at this time. Review of Systems Review of Systems: Review of systems noncontributory. Exam Narrative: Patient alert comfortable at bed rest. HEENT exam reveals no icterus. Lungs are clear. Heart without murmur. Abdomen soft nontender with no organomegaly. Objective Data Vital Signs Vital Signs: Vital Signs - 24 hr 02/01/22 16:00 02/01/22 21:10 02/01/22 20:00 Temperature 96.5 F L Pulse Rate 92 86 Respiratory Rate 20 Blood Pressure 116/57 L Pulse Oximetry 97 Oxygen Delivery Room Air 02/01/22 22:50 02/01/22 20:00 02/02/22 00:00 Temperature 97.9 F Pulse Rate 85 93 81 Respiratory Rate 20 Blood Pressure 105/52 L Pulse Oximetry 97 Oxygen Delivery 02/02/22 04:00 02/02/22 05:11 02/02/22 06:00 Temperature 97.7 F 97.7 F Pulse Rate 72 76 76 Respiratory Rate 20 20 Blood Pressure 107/50 L 107/50 L Pulse Oximetry 95 95 Oxygen Delivery 02/02/22 09:30 02/02/22 09:30 02/02/22 12:00 Temperature Pulse Rate 70 68 Respiratory Rate Blood Pressure Pulse Oximetry Oxygen Delivery Room Air Intake/Output Intake/Output: Intake & Output 11/08/1702/01/22 02/01/22 02/02/22 00:59 00:59 23:59 23:59 Intake Total 942 Output Total 700 Balance 242 Meds/Results Medications: Active Medications Generic Name Dose Route Start Last Admin Trade Name Trinh PRN Reason Stop Dose Admin Acetaminophen 500 mg 01/31/22 02:48 02/02/22 05:01 Acetaminophen 500 Mg Tablet PO 500 mg Q4H PRN Administration Pain Acetaminophen 1,000 mg 01/31/22 09:00 02/02/22 09:27 Acetaminophen 500 Mg Tablet PO 1,000 mg QAM ESTRELLA Administration Ascorbic Acid 500 mg 01/31/22 09:00 02/02/22 09:27 Ascorbic Acid 500 Mg Tablet PO 500 mg DAILY ESTRELLA Administration Calcium Carbonate 1 tablet 01/31/22 09:00 02/02/22 09:28 Calcium/Vitamin D 250 Mg Tablet PO 1 tablet BID ESTRELLA Administration Cyanocobalamin 1,000 mcg 01/31/22 09:00 02/02/22 09:28 Cyanocobalamin 1,000 Mcg Tablet PO 1,000 mcg QAM ESTRELLA Administration Ferrous Sulfate 324 mg 01/31/22 08:00 02/02/22 09:28 Ferrous Sulfate 324 Mg Tablet PO 324 mg BIDWM ESTRELLA Administration Fluticasone Propionate 1 spray 01/31/22 09:00 02/02/22 09:28 Fluticasone Propionate 0.05% Na Spr 16 Gm Btl (*Bkc) NASAL 1 spray QAM ESTRELLA Administration Gabapentin 200 mg 01/31/22 09:00 02/02/22 09:28 Gabapentin 100 Mg Capsule PO 200 mg BID ESTRELLA Administration Melatonin 3 mg 01/31/22 21:00 02/01/22 21:12 Melatonin 3 Mg Tablet PO 3 mg HS ESTRELLA Administration Menthol/Methyl Salicylate 1 applic 01/31/22 17:00 02/02/22 09:26 Menthol 10% / Methyl Salicylate 15% 57 Gm Tube TOPICAL 1 applic BID ESTRELLA Administration Miscellaneous Information 1 each 02/01/22 00:01 Nitrofurantoin: Crcl 02/01= 36.6ml/Min Please Evaluate XX 03/03/22 00:00 CLARIFY ESTRELLA Montelukast Sodium 10 mg 01/31/22 21:00
--- NOTE | 2022-02-02 15:52 | PM.IMPN ---
Progress Note: A&P Assessment and Plan (1) Acute UTI: Code(s): N39.0 - Urinary tract infection, site not specified Status: Acute Assessment and Plan: UA with 3+ leukocytes and >75 WBC. Given Rocephin 1 gram IV in ED, but changed to levaquin 750 mg IV by admitting provider 01/3102/01/22 urine culture showing enterococcus species. 10/23/21 urine showed e.coli and enterococcus species sensitive to macrobid. Patient denies CVA tenderness or fevers. Change to macrobid 100 mg PO BID x 5 days. Repeat BMP in am. 02/02/22 day 2 of 5 macrobid PO. enterococcus species sensitive to macrobid. (2) Acute on chronic blood loss anemia: Code(s): D62 - Acute posthemorrhagic anemia Status: Acute Assessment and Plan: H/H 7.11/22 on admission. Her most recent Hgb 10 on 01/06/22 she reported multiple black stools prior to admission Trend H/H. Monitor for bleeding. GI consulted and appreciate recommendations. Diet advancement per GI Serum iron 25, TIBC 338, sat 7%, Ferritin 21- she reports prior iron transfusions and is currently already on oral iron. give Venofer 500 mg IV x1 01/31/22. 02/01/22 Hgb 6.5/Hct 22.3%. Type and cross and transfuse 1 unit PRBC. Fecal occult stool x1. Repeat H/H 2 hours after blood. EGD with mild localized acute superficial gastritis in the fundus, that is erythematous and edematous. contact bleeding noted. Biopsies taken. 02/02/22 Hgb 8.5, awaiting stool occult, patient still fatigued. Repeat H/H in am. (3) COPD (chronic obstructive pulmonary disease): Qualifiers: COPD type: unspecified COPD Qualified Code(s): J44.9 - Chronic obstructive pulmonary disease, unspecified Code(s): J44.9 - Chronic obstructive pulmonary disease, unspecified Status: Chronic Assessment and Plan: chronic, stable. Not in acute exacerbation. (4) Arthritis of right glenohumeral joint: Code(s): M19.011 - Primary osteoarthritis, right shoulder Status: Acute Assessment and Plan: Chronic, stable. 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 consult Wound RN for evaluation. (6) Acute upper GI bleeding: Code(s): K92.2 - Gastrointestinal hemorrhage, unspecified Status: Acute Assessment and Plan: +melena report on admission. H/H low. GI consulted. Changed to protonix 40 mg PO daily for gastritis as above. Plan CODE STATUS; FULL CODE Disposition[facility]. Time Spent With Patient Time with patient: 15 - 25 minutes Subjective Date/time seen: 02/02/22 15:52 Interval history: Her left heel and sacrum hurts today. She was seen by the Wound RN today for her left heel pressure ulcer. Her sacrum started hurting prior to arrival and the [facility] had been putting some kind of spray on it. She has not had a bowel movement since admission. She denies abd pain, nausea, vomiting, chest pain or SOB. She still feels weak and fatigued. Review of Systems Review of Systems: All systems reviewed & are unremarkable except as noted in HPI and below Exam Narrative: General: No acute distress.?Frail, lying in bed. Mental Status/Psych: Awake, alert and oriented x3 with clear speech. Neutral mood and affect. Pleasant and cooperative. Skin: Skin fair, warm, and without rashes or lesions. Left heel dressing clean, dry and intact. Tender to palpation. Fair turgor.? HEENT: Normocephalic. Pupils equal and round. Grossly normal hearing. Oral mucosa moist. Neck: No JVD. Heart: S1 and S2 regular rate and rhythm. 3/6 s
[2022-02-02 20:19] LABS: IFOB Positive Control Positive; Immunochemical Fecal Occult Bl Positive (N)
[2022-02-02] MEDS: SENNA/DOCUSATE SODIUM TABLET 2 TAB PO (20:51)
[2022-02-02] MEDS: MELATONIN 3 MG TABLET PO (20:51)
[2022-02-02] MEDS: MONTELUKAST SODIUM 10 MG TABLET PO (20:52)
[2022-02-03] VITALS: PULSE 69
[2022-02-03 04:00] VITALS: PULSE 68
[2022-02-03 06:00] VITALS: BP 124/60; PULSE 78; RESP 18; TEMP 36.7; O2SAT 99
[2022-02-03 06:11] LABS: Hematocrit 29.5 % (37.0-47.0); Hemoglobin 8.7 g/dL (12.0-15.0)
[2022-02-03 06:20] LABS: Anion Gap 10 mmol/L (8-16); Blood Urea Nitrogen 16 mg/dL (7-17); Calcium 8.9 mg/dL (8.4-10.2); Carbon Dioxide 27 mmol/L (22-30); Chloride 102 mmol/L (98-107); Estimated Glomerular Filt Rate > 60; Glucose 93 mg/dL (65-110); Potassium 3.9 mmol/L (3.4-5.0); Sodium 139 mmol/L (137-145)
[2022-02-03] MEDS: GABAPENTIN 100 MG CAPSULE 200 MG PO ×2 (09:00→16:44)
[2022-02-03] MEDS: CHOLECALCIFEROL 1,000 UNITS TABLET 1000 UNITS PO (09:00)
[2022-02-03] MEDS: ASCORBIC ACID 500 MG TABLET PO (09:00)
[2022-02-03] MEDS: polyethylene glycoL 3350 17 GM POWD.PACK PO (09:00)
[2022-02-03] MEDS: MENTHOL 10% / METHYL SALICYLATE 15% 57 GM TUBE 1 APPLIC TOPICAL ×2 (09:00→16:44)
[2022-02-03] MEDS: NITROFURANTOIN MONOHYD MACROCR 100 MG CAP PO ×2 (09:00→20:27)
[2022-02-03] MEDS: FERROUS SULFATE 324 MG TABLET PO ×2 (09:00→16:44)
[2022-02-03] MEDS: ACETAMINOPHEN 500 MG TABLET 1000 MG PO (09:00)
[2022-02-03] MEDS: CYANOCOBALAMIN 1,000 MCG TABLET 1000 MCG PO (09:00)
[2022-02-03] MEDS: PANTOPRAZOLE 40 MG TABLET PO (09:00)
[2022-02-03] MEDS: CALCIUM/VITAMIN D 250 MG TABLET 1 TABLET PO ×2 (09:00→16:45)
[2022-02-03] MEDS: FLUTICASONE PROPIONATE 0.05% NA SPR 16 GM BTL (*BKC) 1 SPRAY NASAL (09:01)
--- NOTE | 2022-02-03 15:29 | PM.IMPN ---
Progress Note: A&P Assessment and Plan (1) Acute UTI: Code(s): N39.0 - Urinary tract infection, site not specified Status: Acute Assessment and Plan: UA with 3+ leukocytes and >75 WBC. Given Rocephin 1 gram IV in ED, but changed to levaquin 750 mg IV by admitting provider 01/3102/01/22 urine culture showing enterococcus species. 10/23/21 urine showed e.coli and enterococcus species sensitive to macrobid. Patient denies CVA tenderness or fevers. Change to macrobid 100 mg PO BID x 5 days. Repeat BMP in am. 02/02/22 day 2 of 5 macrobid PO. enterococcus species sensitive to macrobid. 02/03/22 day 3 of 5 antibiotics. Asymptomatic. Continue for 2 more days. (2) Acute on chronic blood loss anemia: Code(s): D62 - Acute posthemorrhagic anemia Status: Acute Assessment and Plan: H/H 7.11/22 on admission. Her most recent Hgb 10 on 01/06/22 she reported multiple black stools prior to admission Trend H/H. Monitor for bleeding. GI consulted and appreciate recommendations. Diet advancement per GI Serum iron 25, TIBC 338, sat 7%, Ferritin 21- she reports prior iron transfusions and is currently already on oral iron. give Venofer 500 mg IV x1 01/31/22. 02/01/22 Hgb 6.5/Hct 22.3%. Type and cross and transfuse 1 unit PRBC. Fecal occult stool x1. Repeat H/H 2 hours after blood. EGD with mild localized acute superficial gastritis in the fundus, that is erythematous and edematous. contact bleeding noted. Biopsies taken. 02/02/22 Hgb 8.5, awaiting stool occult, patient still fatigued. Repeat H/H in am. 02/03/22 Hgb 8.7. FOBT positive x2. Patient does not want to pursue colonoscopy. Can follow with GI outpatient. (3) Acute upper GI bleeding: Code(s): K92.2 - Gastrointestinal hemorrhage, unspecified Status: Acute Assessment and Plan: +melena report on admission. H/H low. GI consulted. Changed to protonix 40 mg PO daily for gastritis as above. 02/03/22 Stable. (4) COPD (chronic obstructive pulmonary disease): Qualifiers: COPD type: unspecified COPD Qualified Code(s): J44.9 - Chronic obstructive pulmonary disease, unspecified Code(s): J44.9 - Chronic obstructive pulmonary disease, unspecified Status: Chronic Assessment and Plan: chronic, stable. Not in acute exacerbation. (5) Arthritis of right glenohumeral joint: Code(s): M19.011 - Primary osteoarthritis, right shoulder Status: Acute Assessment and Plan: Chronic, stable. Continue PRN acetaminophen and BID neurontin. Added PRN Santhosh-rueda ointment. Patient has had prior imaging suggesting severe osteoarthritis. Consider repeat imaging outpatient if pain persists. 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 consult Wound RN for evaluation. Betadine ointment and dry gauze dressing changes daily Plan CODE STATUS; FULL CODE Disposition: return to custodial tomorrow if stable. Time Spent With Patient Time with patient: 15 - 25 minutes Subjective Date/time seen: 02/03/22 15:29 Interval history: Her sacrum and left heel feel better today. The ointment to her sacrum helps. She still has left shoulder pain, however, this is improved with topical Santhosh-rueda. She had 2 bowel movements today that were occult positive. She did not see her stool, however. No chest pain, SOB, dizziness, palpitations, or abdominal pain. Review of Systems Review of Systems: All systems reviewed & are unremarkable except as noted in HPI and below Exam Narrative: General: No acute distress.?Frail, lying in bed. Mental Status/Psych: Tammy
[2022-02-03 16:13] VITALS: BP 141/66; PULSE 74; RESP 16; TEMP 36.6; O2SAT 99
[2022-02-03] MEDS: ACETAMINOPHEN 500 MG TABLET PO (16:49)
[2022-02-03 20:00] VITALS: PULSE 74; RESP 16; O2SAT 99
[2022-02-03] MEDS: MELATONIN 3 MG TABLET PO (20:27)
[2022-02-03] MEDS: SENNA/DOCUSATE SODIUM TABLET 2 TAB PO (20:27)
[2022-02-03] MEDS: MONTELUKAST SODIUM 10 MG TABLET PO (20:27)
[2022-02-03 21:31] VITALS: BP 125/71; PULSE 82; RESP 16; TEMP 36.7; O2SAT 98
[2022-02-04] MEDS: MENTHOL 10% / METHYL SALICYLATE 15% 57 GM TUBE 1 APPLIC TOPICAL ×2 (05:00→16:16)
[2022-02-04 06:00] VITALS: BP 154/75; PULSE 70; RESP 18; TEMP 36.4; O2SAT 98
[2022-02-04] MEDS: CALCIUM/VITAMIN D 250 MG TABLET 1 TABLET PO ×2 (08:12→16:15)
[2022-02-04] MEDS: FLUTICASONE PROPIONATE 0.05% NA SPR 16 GM BTL (*BKC) 1 SPRAY NASAL (08:12)
[2022-02-04] MEDS: CYANOCOBALAMIN 1,000 MCG TABLET 1000 MCG PO (08:12)
[2022-02-04] MEDS: GABAPENTIN 100 MG CAPSULE 200 MG PO ×2 (08:12→16:15)
[2022-02-04] MEDS: FERROUS SULFATE 324 MG TABLET PO ×2 (08:12→16:15)
[2022-02-04] MEDS: ACETAMINOPHEN 500 MG TABLET 1000 MG PO (08:12)
[2022-02-04] MEDS: PANTOPRAZOLE 40 MG TABLET PO (08:12)
[2022-02-04] MEDS: ASCORBIC ACID 500 MG TABLET PO (08:12)
[2022-02-04] MEDS: NITROFURANTOIN MONOHYD MACROCR 100 MG CAP PO ×2 (08:12→20:50)
[2022-02-04] MEDS: polyethylene glycoL 3350 17 GM POWD.PACK PO (08:12)
[2022-02-04] MEDS: CHOLECALCIFEROL 1,000 UNITS TABLET 1000 UNITS PO (08:12)
--- NOTE | 2022-02-04 13:22 | PM.DS ---
DS: Admitting Diagnosis Discharge Date 02/04/2022 Admitting Diagnosis Anemia DS: Discharge Diagnosis Discharge Diagnosis (1) Acute UTI: Code(s): N39.0 - Urinary tract infection, site not specified Status: Acute Assessment and Plan: UA with 3+ leukocytes and >75 WBC. Treated with Ceftriaxone initially then transitioned to Levaquin pending urine culture. Urine culture with growth of Enterococcus, therefore transitioned to Macrobid which she will continue to complete a total of 5 days antibiotic therapy. (2) Acute on chronic blood loss anemia: Code(s): D62 - Acute posthemorrhagic anemia Status: Acute Assessment and Plan: Hemoglobin 7.8 on admission with decline to 6.5. Transfused 1 unit packed RBCs. Patient did report multiple black tarry stools. Stool occult blood test was positive. She was seen in consultation by GI and underwent EGD on 02/01/2022 which revealed patchy gastritis in fundus of stomach. Continue pantoprazole 40 mg daily. Patient should avoid NSAIDs. H&H remained stable following transfusion. Received IV Venofer and will continue with p.o. iron supplementation as an outpatient. Repeat H&H in 1 week at nursing facility and follow-up with GI as an outpatient. (3) Acute upper GI bleeding: Code(s): K92.2 - Gastrointestinal hemorrhage, unspecified Status: Acute Assessment and Plan: Please see above (4) COPD (chronic obstructive pulmonary disease): Qualifiers: COPD type: unspecified COPD Qualified Code(s): J44.9 - Chronic obstructive pulmonary disease, unspecified Code(s): J44.9 - Chronic obstructive pulmonary disease, unspecified Status: Chronic Assessment and Plan: Chronic, stable. Not in acute exacerbation. (5) Arthritis of right glenohumeral joint: Code(s): M19.011 - Primary osteoarthritis, right shoulder Status: Acute Assessment and Plan: Chronic, stable. Continue PRN acetaminophen and BID neurontin. Santhosh-Duckworth ointment as needed. 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 No signs or symptoms of infection. Continue daily Betadine ointment and dry gauze dressing. Waffle boots during admission for offloading. Continue with wound care at retirement DS: Summary Hospital Course Hospital Course: Date of admission: 01/30/2022 Date of discharge: 02/04/2022 Mercy Dobbs is an 86-year-old female with a history of CVA, COPD, hypertension, hypothyroidism, malignant neoplasm of lung, tobacco abuse, chronic anemia, and several other comorbidities who presented to the emergency department on 01/30/2022 from her retirement with complaints of abdominal pain with dark tarry stools for several weeks. On presentation to the ED, her vital signs were stable, she was afebrile, hemoglobin 7.8, UA abnormal. She was admitted to the hospitalist service for further evaluation and management. Please see above for further details. Hemoglobin declined and she was transfuse 1 unit of blood. Underwent EGD which revealed gastritis. Will continue with Protonix and outpatient GI follow-up. Repeat H&H in 1 week to ensure remaining stable. Patient was feeling back to usual state of health and felt comfortable with plans to return to nursing facility. Discussed worrisome signs and symptoms for which to return. She was discharged in hemodynamically stable condition on 02/04/2022. Time Spent with Patient Time attestation: Total time spent providing and/or coordinating discharge services: 45 minute Time spent: Greater than 30 minutes Exam
[2022-02-04 14:00] VITALS: BP 140/73; PULSE 89; RESP 18; TEMP 36.9; O2SAT 98
[2022-02-04 14:34] LABS: Hemoglobin 8.7 g/dL (12.0-15.0)
[2022-02-04 15:32] LABS: EDCOVIDSCREEN Negative (Negative)
[2022-02-04] MEDS: MELATONIN 3 MG TABLET PO (20:51)
[2022-02-04] MEDS: SENNA/DOCUSATE SODIUM TABLET 2 TAB PO (20:51)
[2022-02-04] MEDS: MONTELUKAST SODIUM 10 MG TABLET PO (20:51)
[2022-02-04] MEDS: ACETAMINOPHEN 500 MG TABLET PO (20:53)
== END 2022-02-04 21:20 | DRG 378 ==
LOC: ANHED 18:34 → ANH3MED 21:27
PROVIDERS: Internal Medicine Gastroenterology; Nurse Practitioner Family; Physician Assistant; Admitting Provider Hospitalist; Emergency Provider Emergency Medicine; PCP Internal Medicine; Visit Provider Internal Medicine
PROC: 0DJ08ZZ Inspection of Upper Intestinal Tract, Via Natural or Artificial Opening Endoscopic (ICD-10-PCS; CPT 43235; principal; 2022-02-01 08:45)
DX: K29.01 Acute gastritis with bleeding (principal); C34.90 Malignant neoplasm of unspecified part of unspecified bronchus or lung; N39.0 Urinary tract infection, site not specified; D62 Acute posthemorrhagic anemia; I43 Cardiomyopathy in diseases classified elsewhere; L89.610 Pressure ulcer of right heel, unstageable; K44.9 Diaphragmatic hernia without obstruction or gangrene; B95.2 Enterococcus as the cause of diseases classified elsewhere; E03.9 Hypothyroidism, unspecified; F41.9 Anxiety disorder, unspecified; H26.9 Unspecified cataract; I11.9 Hypertensive heart disease without heart failure; J44.9 Chronic obstructive pulmonary disease, unspecified; M81.0 Age-related osteoporosis without current pathological fracture; M19.011 Primary osteoarthritis, right shoulder; R19.5 Other fecal abnormalities; Z96.652 Presence of left artificial knee joint; Z86.16 Personal history of COVID-19; Z99.3 Dependence on wheelchair; Z20.822 Contact with and (suspected) exposure to COVID-19; Z28.21 Immunization not carried out because of patient refusal; Z87.891 Personal history of nicotine dependence; Z86.73 Personal history of transient ischemic attack (TIA), and cerebral infarction without residual deficits
CPT/HCPCS: 36415; 36430; 51701; 80048; 80053; 81001; 82274; 82728; 83540; 83550; 83690; 83735; 85014; 85018; 85025; 85027; 86850; 86870; 86880; 86900; 86901; 86902; 86922; 86971; 87086; 87147; 87181; 87186; 87426; 88305; 93005; 96361; 96365; 96367; 96375; 96376; 99285; A9270; C9113; C9803; G0378; J0696; J1756; J1956; J2704; J7050; J7120; P9016; U0003; U0005

== ENCOUNTER 2022-04-07 10:27 | Outpatient (CLI) | payer MEDICARE, MEDICAID, SELFPAY ==
--- NOTE | ~2022-04-07 | CT_ITS ---
EXAMINATION: CT diagnostic chest wo con DATE: 04/07/2022 11:46 INDICATION: Malignant neoplasm of the lung TECHNIQUE: Computed tomography (CT) of the chest was performed without intravenous contrast. The dose -length product (DLP) was 154.30 mGy-cm. Automated exposure control and iterative reconstruction tech [employer] were employed. COMPARISON: 12/30/2021 FINDINGS: There is moderate emphysema. Again seen are airspace opacities of the left perihilar region and left midlung zone. There is an enlarging left upper lobe nodule which measures 2.3 x 1.9 cm on i mage 38. A 7 mm nodule in the right middle lobe demonstrates slight increase in size. Two small stabl e nodules in the left upper lobe are probably benign. There are trace pleural effusions. No pneumotho rax is identified. Cardiomegaly is noted. There is calcified coronary artery atherosclerosis. There a re changes of right thyroidectomy. No definite pathologically enlarged thoracic lymph nodes are ident ified. 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 There is severe thoraci c spondylosis. IMPRESSION: 1. Enlarging nodule of the left upper lobe, consistent with malignancy. 2. Continued enlargement of the right middle lobe nodule, likely metastatic disease. 3. Moderate emphysema. 4. 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 Reviewed, dictated and finalized at location L. CTURES ENGINEER IMPRESSION: 1. Enlarging nodule of the left upper lobe, consistent with malignancy. 2. Continued enlargement of the right middle lobe nodule, likely metastatic dis ease. 3. Moderate emphysema. 4. 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
== END 2022-04-07 10:28 | disposition home or self-care (01) ==
PROVIDERS: PCP Internal Medicine; Visit Provider Internal Medicine Hematology & Oncology
DX: C34.11 Malignant neoplasm of upper lobe, right bronchus or lung (principal); J43.9 Emphysema, unspecified
CPT/HCPCS: 71250

== ENCOUNTER 2023-11-28 17:25 | Inpatient (IN) | payer MEDICARE, SELFPAY ==
--- NOTE | ~2023-11-28 | CT_ITS ---
EXAMINATION: CT diagnostic chest wo con DATE: 11/28/2023 19:06 INDICATION: SOB TECHNIQUE: Computed tomography (CT) of the chest was performed without intravenous contrast. Addition al 3D reconstructions utilizing coronal maximum intensity projection (MIP) were performed. Automated exposure control and iterative reconstruction technique were employed. The dose-length product was 30 4.36 mGy-cm. COMPARISON: 04/07/2022 FINDINGS: Mild to moderate emphysema. Very small right and [id number]-[id number] left pleural effusions. There is c ollapse of the left upper lobe and lingula likely secondary to an obstructing left perihilar mass wit h abrupt cut off of the bronchi. There are several masses measuring up to 2 cm in the residual aerate d left lower lobe consistent with associated metastatic disease. There are also several small nodules in the right middle lobe also suspicious for metastatic disease. Cardiomegaly. Atherosclerotic coron marely artery calcifications. Aortic valve calcific lesion. Very small pericardial effusion. Thoracic ao rta is normal in caliber. No pathologically enlarged mediastinal or right hilar lymphadenopathy. No s ignificant change in a 3.2 x 2.0 cm low-attenuation left adrenal adenoma. Thoracolumbar dextroscolios is with moderate to severe spondylosis. Severe right glenohumeral osteoarthritis. IMPRESSION: 1. Left hilar/perihilar mass 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 2. Multiple pulmonary nodules in the left lower lobe and right middle lobe consistent with metastatic disease. 3. Small to moderate-sized left and very small right pleural effusions. 4. Mild to moderate emphysema. 5. Cardiomegaly with very small pericardial effusion. Reviewed, dictated and finalized at location A. IMPRESSION: 1. Left hilar/perihilar mass concerning for primary bronchogenic carcinoma with bronchial obstruction resulting in complete collapse of the left upper lobe an d lingula. 2. Multiple pulmonary nodules in the left lower lobe and right middle lobe cons istent with metastatic disease. 3. Small to moderate-sized left and very small right pleural effusions. 4. Mild to moderate emphysema. 5. Cardiomegaly with very small pericardial effusion.
--- NOTE | ~2023-11-28 | CT_ITS ---
EXAMINATION: CT abdomen pelvis wo con DATE: 11/30/2023 18:50 INDICATION: Lung cancer staging. TECHNIQUE: Computed tomography (CT) of the abdomen and pelvis was performed without intravenous contr ast. Automated exposure control and iterative reconstruction technique were employed. The dose-length product was 712.63 mGy-cm. COMPARISON: PET/CT 01/23/20 FINDINGS: The visualized portions of the lung bases demonstrate mild emphysema. There are multiple no dules in right middle lobe. A calcified right lung nodule is consistent with old granulomatous diseas e. There is a moderate-sized left pleural effusion. There is a trace right pleural effusion. There ar e airspace opacities in left lung with volume loss. The heart size is normal. There are coronary long ry calcifications. No pericardial effusion. The liver is normal. There are gallstones in the gallblad terence, which is normal in size. Calcifications in the spleen are consistent with old granulomatous dise ase. The pancreas and right adrenal gland are normal. There is a chronic 2.4 cm mass in left adrenal gland measuring soft tissue attenuation, likely an adenoma. There are cysts in the kidneys measuring up to 14 mm on the right. The bladder is markedly distended. There are fibroids in the uterus. There are no dilated loops of bowel. The appendix is normal. There are no pathologically enlarged lymph nod es. There is no free intraperitoneal fluid. There is calcified atherosclerosis of the aorta and many of the other arteries. There is a stent in right superficial femoral artery. There is internal fixati on of left femur. There is thoracolumbar dextroscoliosis and severe spondylosis. IMPRESSION: 1. Airspace opacities in left lung, consistent with a combination of metastatic disease and atelectas is. Right middle lobe nodules, consistent with metastatic disease. 2. Moderate-sized left pleural effusion. Reviewed, dictated and finalized at location A. IMPRESSION: 1. Airspace opacities in left lung, consistent with a combination of metastatic disease and atelectasis. Right middle lobe nodules, consistent with metastatic disease. 2. Moderate-sized left pleural effusion.
--- NOTE | ~2023-11-28 | XR_ITS ---
EXAMINATION: XR chest 2V DATE: 11/28/2023 18:13 INDICATION: Chest pain and shortness of breath TECHNIQUE: frontal and lateral views of the chest were obtained. COMPARISON: Chest radiograph dated 10/06/[address] dated 04/07/2022 FINDINGS: Prominent airspace opacities throughout the left lung which obscures the left side of the cardiomedia stinal silhouette. Mild pulmonary vascular congestion evident in the right lung. 1.4 cm nodular opaci ty in the right lower lung zone. No pneumothorax or right-sided pleural effusion. Right-sided thyroid ectomy clips at the thoracic inlet. Severe right glenohumeral osteoarthritis. IMPRESSION: 1. New near complete opacification of the left hemithorax which could represent atelectasis, pneumoni a, malignancy, pleural effusion or some combination thereof. 2. Indeterminate 1.4 cm nodular opacity right lower lung which raises concern for malignancy. Reviewed, dictated and finalized at location A. IMPRESSION: 1. New near complete opacification of the left hemithorax which could represent atelectasis, pneumonia, malignancy, pleural effusion or some combination there of. 2. Indeterminate 1.4 cm nodular opacity right lower lung which raises concern f or malignancy.
[2023-11-28 17:19] VITALS: BP 104/60; PULSE 133; RESP 25; TEMP 36.6; O2SAT 91
--- NOTE | 2023-11-28 17:32 | ECG_ITS ---
Test Date: 2023-11-28 17:32:47 Measurements Intervals [place] Rate: 107 P: 0 NH: 0 QRS: -37 QRSD: 146 T: 2 QT: 327 QTc: 438 Interpretive Statements ATRIAL FLUTTER/TACHYCARDIA WITH RAPID VENTRICULAR RESPONSE LEFT AXIS DEVIATION RIGHT BUNDLE BRANCH BLOCK BASELINE ARTIFACT- I, II, III, AVR, AVL ,AVF, V1-V6 ABNORMAL ECG No previous ECG available for comparison Electronically Signed On 11-28-2023 20:10:28 CDT by Mik Cardona D.O.
[2023-11-28 17:33] VITALS: PULSE 115; O2SAT 93
[2023-11-28 17:58] LABS: Basophils Percent Auto 0.6 % (0.2-1.2); Eosinophils Absolute Auto 0.2 K/mm3 (0-0.3); Eosinophils Percent Auto 4.3 % (0-4.4); Hematocrit 38.9 % (37.0-47.0); Hemoglobin 11.9 g/dL (12.0-15.0); Immature Granulocyte Absolute 0.01 K/mm3 (0.00-0.031); Immature Granulocyte Percent A 0.2 % (0-0.5); Lymphocytes Absolute Auto 0.48 K/mm3 (0.9-3.2); Lymphocytes Percent Auto 10.3 % (18.3-44.2); Mean Corpuscular HGB Conc 30.6 g/dl (32-36); Mean Corpuscular Hemoglobin 26.4 pg (26-34); Mean Corpuscular Volume 86.4 fl (80-100); Mean Platelet Volume 9.8 fl (7.4-10.4); Monocytes Absolute Auto 0.6 K/mm3 (0.1-0.6); Monocytes Percent Auto 13.8 % (2.6-8.5); Neutrophils Absolute Auto 3.3 K/mm3 (1.3-6.7); Neutrophils Percent Auto 70.8 % (45.5-73.1); Platelet Count Result 255 k/mm3 (150-375); Red Cell Distribution Width 13.2 % (11.5-14.5); White Blood Count 4.7 K/mm3 (4.5-10.0)
[2023-11-28 18:10] LABS: Alanine Aminotransferase 8 U/L (6-35); Albumin Level 3.7 g/dL (3.5-5.1); Alkaline Phosphatase 67 U/L (38-126); Anion Gap 8 mmol/L (4-12); Aspartate Amino Transferase 15 U/L (14-36); Bilirubin,Total 0.1 mg/dL (0.2-1.3); Blood Urea Nitrogen 20 mg/dL (7-17); Carbon Dioxide 28 mmol/L (22-30); Chloride 99 mmol/L (98-107); Estimated CRCL calculation 38 ml/min; Estimated Glomerular Filt Rate 59; Glucose 104 mg/dL (65-110); Lipase 62 U/L (23-300); Potassium 4.8 mmol/L (3.4-5.0); Sodium 135 mmol/L (137-145)
[2023-11-28 18:15] LABS: Prothrombin Time 13.8 Seconds (11.1-14.7)
[2023-11-28 18:16] LABS: Partial Thromboplastin Time 39.6 Seconds (22.3-36.8)
[2023-11-28 18:20] LABS: Troponin I 0.016 ng/mL (0.000-0.034)
[2023-11-28 18:43] VITALS: BP 101/77; PULSE 71; RESP 20; O2SAT 93
--- NOTE | 2023-11-28 18:54 | ED.CHESTPAIN ---
HPI - Chest Pain General Chief Complaint: Chest Pain Stated Complaint: SOB/CP Time Seen by Provider: 11/28/23 17:40 History of Present Illness HPI narrative: Patient is an 87-year-old female who presents to the emergency department this afternoon from her [facility] due to chest pressure and shortness of breath. Patient states that she has been having this shortness of breath and a cough for a few days and initially she thought it was her allergy/ COPD but the shortness of breath persists of patient finally decided to come to the emergency department for further evaluation. Patient took 400 mg aspirin prior to arrival. EMS did place her on nasal cannula for comfort. Patient does not wear oxygen at home. She is also oriented to person, place, time and situation. Patient was also administered nitroglycerin by EMS prior to arrival. Related Data Home Medications Medication Instructions Recorded Confirmed acetaminophen 500 mg tablet 1,000 mg PO QAM 07/31/19 05/28/22 (Tylenol Extra Strength) ascorbate calcium (vitamin C) 500 500 mg PO DAILY 06/16/21 05/28/22 mg tablet melatonin 1 mg tablet 1 mg PO QHS 08/27/21 05/28/22 calcium carbonate 250 mg-vitamin 1 tablet PO BID 10/21/21 05/28/22 D3 3.125 mcg (125 unit) tablet (Oyster Shell + D3) fluticasone propionate 50 1 spray intranasal QAM 10/21/21 05/28/22 mcg/actuation nasal spray,suspension montelukast 10 mg tablet 10 mg PO QHS 10/21/21 05/28/22 acetaminophen 500 mg tablet 500 mg PO Q4H PRN Pain 01/30/22 05/28/22 (Tylenol Extra Strength) gabapentin 100 mg capsule 200 mg PO BID 01/30/22 05/28/22 mineral oil (Fleet Mineral Oil See Rx Instructions .Route 01/30/22 05/28/22 enema) .COMPLEX PRN Constipation potassium chloride 20 mEq 20 meq PO DAILY 01/30/22 05/28/22 tablet,extended release cholecalciferol (vitamin D3) 25 1,000 unit PO QAM 01/31/22 05/28/22 mcg (1,000 unit) capsule cyanocobalamin (vitamin B-12) 1,000 mcg PO QAM 01/31/22 05/28/22 1,000 mcg tablet (Vitamin B-12) ferrous sulfate 325 mg (65 mg 324 mg PO BID 01/31/22 05/28/22 iron) tablet lisinopril 5 mg tablet 5 mg PO QAM 01/31/22 05/28/22 pantoprazole 40 mg tablet,delayed 40 mg PO QAM 01/31/22 05/28/22 release (Protonix) polyethylene glycol 3350 17 gram 17 g PO QAM 01/31/22 05/28/22 oral powder packet (Miralax) Allergies Allergy/AdvReac Type Severity Reaction Status Date / Time naproxen Allergy Severe CHEST PAINS Verified 11/28/23 17:39 medroxyprogesterone Allergy Mild Unknown Verified 11/28/23 17:39 erythromycin base Allergy Unknown UNKNOWN Verified 11/28/23 17:39 iohexol Allergy Unknown contrast Verified 11/28/23 17:39 [From contrast - CT, X-RAY] media: could taste for 3 days , confusion moxifloxacin Allergy Unknown Unknown Verified 11/28/23 17:39 NSAIDS (Non-Steroidal Allergy Unknown FEELS LIKE Verified 11/28/23 17:39 Anti-Inflamma LOSS OF LIFE butorphanol Allergy Unknown Verified 11/28/23 17:39 cephalexin [From Keflex] Allergy Unknown Verified 11/28/23 17:39 doxycycline Allergy Unknown Verified 11/28/23 17:39 Macrolide Antibiotics Allergy Unknown Verified 11/28/23 17:39 risedronate sodium Allergy Unknown Verified 11/28/23 17:39 atenolol AdvReac Severe BLURRED Verified 11/28/23 17:39 VISION fenofibrate AdvReac Severe GERNERAL Verified 11/28/23 17:39 MUSCLE PAIN methylprednisolone AdvReac Severe ANXIETY Verified 11/28/23 17:39 BLURRED VISION Quinolones AdvReac Severe BLURRED Verified 11/28/23 17:39 VISION azelastine AdvReac Mild Blurry Verified 11/28/23 17:39 Vision cefuroxime AdvReac Mild Nausea and Verified 11/28/23 17:39 Vomiting clarithromycin AdvReac Mild Nausea Verified 11/28/23 17:39 fexofenadine AdvReac Mild Blurry Verified 11/28/23 17:39 Vision iodine AdvReac Mild Nausea,WEAK Verified 11/28/23 17:39 NESS pseudoephedrine AdvReac Mild Blurry Verified 11/28/23 17:39 Vision celecoxib AdvRea
--- NOTE | 2023-11-28 19:55 | PM.IMHP ---
H&P: HPI History of Present Illness Date/Time: 11/28/23 19:55 Chief Complaint: Chest pressure and shortness of breath. Narrative: This is a very pleasant 87-year-old female with history of left upper lobe mass status post radiation, chronic obstructive pulmonary disease, and hypertension who presented to the emergency department via EMS from [facility] for evaluation of chest pressure and shortness of breath. The patient provides the following history. She has been feeling increasingly short of breath for quite some time and has had intermittent pressure-like discomfort in her chest, more so on the left side. At times it is pleuritic but does not radiate. She was worried that perhaps the lung tumor may be causing her symptoms. She is otherwise feeling okay and denies fever, chills, sweats, syncope, near syncope, exertional chest pain, cough, paroxysmal nocturnal dyspnea, orthopnea, lower extremity edema, calf pain, nausea, and vomiting. Weight has been stable. In the ED: Vital signs were stable on arrival. Chest x-ray showed near complete opacification of the left hemithorax and indeterminate 1.4 cm nodular opacity in the right lower lung. Subsequent chest CT showed left hilar/perihilar mass concerning for primary bronchogenic carcinoma with bronchial obstruction resulting in complete collapse of the left upper lobe and lingula, multiple pulmonary nodules in the left lower lobe and right middle lobe consistent with metastatic disease, small to moderate size left in very small right pleural effusions, [id number] emphysema, and cardiomegaly with very small pericardial effusion. She was given aspirin 324 mg and is being admitted in this setting for further workup. Review of Systems Review of Systems: 12 systems were reviewed and are negative except for as per HPI. [facility] Past Medical History Medical History Anxiety Arthritis of right glenohumeral joint Cardiomyopathy Cerebrovascular accident Chronic obstructive pulmonary disease COVID Eczema Hypertension Hypothyroidism Malignant neoplasm of upper lobe, left bronchus or lung Completed radiation therapy in 2020 Osteoarthritis Osteoporosis Parathyroid disorder Tobacco abuse Surgical History Surgical History History of dilation and curettage (2008) History of left knee replacement (2009) History of removal of cyst From left axilla. Family History Family History Sibling Family history of coronary artery disease Father Respiratory failure Mother Breast cancer Son Myositis ossificans progressiva Other Family history of arthritis Family history of cardiovascular disease Family history of chronic obstructive pulmonary disease Hypertension Social History Social History Social History: Surrogate decision maker: Timur (son) and Moriah (daughter in-law) Dilia. Code status: Full code Smoking packs per day: 0.75 Smoking cigarettes per day: 15.0 Years smoked: 50 Smoking pack-years: 37.50 Smoking status: Former smoker Tobacco type: cigarettes Alcohol intake: current Drinks per week: 7 Substance use: never Substance use type: does not use Do You Feel Safe in your Home?: Yes Lack of Transportation: No Lack of Food: Never True Current Housing: I Have Housing Concerned About Future Housing: No Difficulty Paying Gas/Electric Bills: No Difficulty Paying for Meds: No Currently Unemployed: No Education: Grade School Difficulty w/ Childcare or Family Care: No Living arrangements: care home Additional living arrangements comments: [facility]. 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 Spiritual care concerns: No Agree to blo
--- NOTE | 2023-11-28 20:39 | PC.NURSE ---
This RN was just notified of pt bed assignment @ 2030
--- NOTE | 2023-11-28 20:40 | PC.NURSE ---
Attempted to call report to [address] [place] [address] twice with no answer.
--- NOTE | 2023-11-28 20:43 | PC.NURSE ---
FANY Hutchison currently doing pt admission assessment.
[2023-11-28 21:19] LABS: Troponin I 0.059 ng/mL (0.000-0.034)
[2023-11-28 22:00] VITALS: BP 120/52; PULSE 78; RESP 18; TEMP 36.6; O2SAT 94
--- NOTE | 2023-11-28 22:52 | ADMGEN ---
This patient, Mercy Dobbs, was admitted to Medical Room 346-01. Patient/family oriented to hospital policies and general routines including ID bracelet, bed and alarms, visiting hours, pain management, procedures, bathroom and other care routines, personal items, smoking policy, room service/diet, and visiting hours. Information on how to activate the Rapid Response Team has been discussed. Patient/Family are encouraged to report perceived risks to care and to ask questions if they do not understand what they are told or what they should do.
[2023-11-28 23:06] VITALS: BMI 29.0
[2023-11-29] VITALS (9 sets, daily range): BP systolic 139–166; BP diastolic 53–61; PULSE 66–78; RESP 15–18; TEMP 36.5–37.1; O2SAT 92–98
--- NOTE | 2023-11-29 00:17 | ECHO_ITS ---
Patient Info Name: Mercy Dobbs Age: 87 years : 1935 Gender: Female Ht: 65 in Wt: 174 lbs BSA: 1.92 m2 HR: 69 bpm BP: 120 / 52 mmHg Technical Quality: Fair Exam Date: 11/29/2023 10:10 AM Exam Location: Echo Lab Patient Status: Inpatient Admit Date: 11/28/2023 Staff Ordering Physician: Justyna Long PA-C [employer] Header: Jason Browne RDCS Attending Provider: Bony Ramos MD Referring Physician: Mercedes HERNANDEZ; Exam Type: CA echo doppler color flow Study Info Indications R01.1 - Cardiac murmur, unspecified - A flutter - Elevated troponin Complete two-dimensional, color flow and Doppler transthoracic echocardiogram is performed. Summary 1. Complete two-dimensional, color flow and Doppler transthoracic echocardiogram is performed. 2. Left ventricular chamber dimension is normal. 3. Left ventricular systolic function is normal, estimated at 60-65%. 4. There is mildly increased left ventricular wall thickness. 5. The left ventricular diastolic function is grade I diastolic dysfunction. 6. Right ventricular chamber dimension is normal. 7. Right ventricular systolic function is normal. 8. Mild pulmonary hypertension, estimated pulmonary arterial systolic pressure is 43 mmHg. Left Ventricle Left ventricular chamber dimension is normal. Left ventricular systolic function is normal, estimated at 60-65%. There is mildly increased left ventricular wall thickness. Left ventricular septal wall motion is normal. The left ventricular diastolic function is grade I diastolic dysfunction. Right Ventricle Right ventricular chamber dimension is normal. Right ventricular systolic function is normal. Left Atria Left atrial chamber dimension is mildly enlarged. Right Atria Right atrial chamber dimension is normal. Aortic Valve The aortic valve is trileaflet. There is no aortic valve sclerosis. There is no aortic valve stenosis. There is no aortic valve regurgitation. Pulmonic Valve The pulmonic valve is not well visualized. Mitral Valve The mitral valve has normal leaflets. There is no mitral valve stenosis. There is trace mitral valve regurgitation. Tricuspid Valve There is no significant tricuspid valve stenosis. There is mild tricuspid valve regurgitation. Mild pulmonary hypertension, estimated pulmonary arterial systolic pressure is 43 mmHg. Pericardium/Pleural The pericardium appears normal. There is no pericardial effusion. Inferior Vena Cava Normal inferior vena cava with >50% collapse upon inspiration consistent with normal right atrial pressure, 5 mmHg. Aorta The aortic root size at the sinus of Valsalva is normal. The prox ascending aorta size is normal. Left Ventricular Outflow Tract Name Value Normal LVOT 2D LVOT Diameter 2.0 cm LVOT Doppler LVOT Peak Gradient 11 mmHg LVOT Mean Gradient 5 mmHg LVOT VTI 35 cm LVOT VTI/AV VTI Ratio 0.8 LVOT Stroke Volume 113 ml LVOT CO 7.0 l/min LVOT CI 3.6 l/min/m2 Pulmonic Valve
[2023-11-29 00:53] LABS: Troponin I 0.072 ng/mL (0.000-0.034)
[2023-11-29 01:39] LABS: Thyroid Stimulating Hormone Reflex 0.777 uIU/mL (0.465-4.68)
[2023-11-29 05:17] LABS: Hematocrit 37.8 % (37.0-47.0); Hemoglobin 11.4 g/dL (12.0-15.0); Mean Corpuscular HGB Conc 30.2 g/dl (32-36); Mean Corpuscular Hemoglobin 26.1 pg (26-34); Mean Corpuscular Volume 86.7 fl (80-100); Mean Platelet Volume 9.9 fl (7.4-10.4); Platelet Count Result 208 k/mm3 (150-375); Red Blood Count 4.36 M/mm3 (4.2-5.4); Red Cell Distribution Width 13.2 % (11.5-14.5)
[2023-11-29 05:30] LABS: Anion Gap 5 mmol/L (4-12); Blood Urea Nitrogen 19 mg/dL (7-17); Calcium 9.2 mg/dL (8.4-10.2); Carbon Dioxide 30 mmol/L (22-30); Chloride 102 mmol/L (98-107); Estimated CRCL calculation 51 ml/min; Estimated Glomerular Filt Rate > 60; Glucose 103 mg/dL (65-110); Magnesium 1.9 mg/dL (1.6-2.3); Potassium 4.2 mmol/L (3.4-5.0); Sodium 137 mmol/L (137-145)
[2023-11-29] MEDS: CYANOCOBALAMIN 1,000 MCG TABLET 1000 MCG PO (08:45)
[2023-11-29] MEDS: ENOXAPARIN 40 MG/0.4 ML SYRINGE SUB-Q (08:45)
[2023-11-29] MEDS: lisinopriL 5 MG TABLET PO (08:45)
[2023-11-29] MEDS: GABAPENTIN 300 MG CAPSULE PO ×3 (08:45→17:41)
[2023-11-29] MEDS: CHOLECALCIFEROL 1,000 UNITS TABLET 1000 UNITS PO (08:45)
[2023-11-29] MEDS: ASCORBIC ACID 500 MG TABLET PO (08:45)
[2023-11-29] MEDS: PANTOPRAZOLE 40 MG TABLET PO (08:45)
[2023-11-29] MEDS: LORATADINE 10 MG TABLET PO (08:45)
[2023-11-29] MEDS: POTASSIUM CHLORIDE 20 MEQ ER TABLET PO (08:45)
[2023-11-29] MEDS: FERROUS GLUCONATE 324 MG TABLET PO ×3 (08:45→17:41)
[2023-11-29] MEDS: FLUTICASONE PROPIONATE 0.05% NA SPR 16 GM BTL (*BKC) 1 SPRAY NASAL (08:46)
--- NOTE | 2023-11-29 13:15 | PM.IMPN ---
Progress Note: A&P Assessment and Plan (1) Acute hypoxic respiratory failure: Code(s): J96.01 - Acute respiratory failure with hypoxia Status: Acute Assessment and Plan: - Likely related to # 2 and # 3. - Currently good O2 sats on RA. - Nutrition Aide and Oncologist consulted. - Supplemental O2 PRN for comfort and maintain sats > 90 %. - Singulair bedtime. - Further mgt pending pulmonary and oncology recommendations. (2) Collapse of left lung: Code(s): J98.11 - Atelectasis Status: Acute Assessment and Plan: - Possibly related to below. - Currently good O2 sats > 90 % on RA. - Nutrition Aide consulted for further recommendations. (3) Lung cancer, primary, with metastasis from lung to other site: Code(s): C34.90 - Malignant neoplasm of unspecified part of unspecified bronchus or lung Status: Acute Assessment and Plan: CT Chest: Left hilar/perihilar mass 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 2. Multiple pulmonary nodules in the left lower lobe and right middle lobe consistent with metastatic disease. - Previously received radiation 06/18 on a left-upper lobe mass. - Nutrition Aide and oncologist recommended. - Further mgt per oncologist recommendations. (4) Pleural effusion: Code(s): J90 - Pleural effusion, not elsewhere classified Status: Acute Assessment and Plan: - Small-mod sized on the left and small on right per CT chest. - Patient comfortable and in no cardiopulmonary distress. - Conservative mgt for now. (5) Atrial flutter: Code(s): I48.92 - Unspecified atrial flutter Status: Acute Assessment and Plan: - EKG on admission; ATRIAL FLUTTER/TACHYCARDIA WITH RAPID VENTRICULAR RESPONSE. - No Hx of A-fib/flutter or anticoagulation. - Currently in SR. - TSH ordered. - ECHO pending results - Continue tele monitory for now. (6) Cardiac murmur: Code(s): R01.1 - Cardiac murmur, unspecified Status: Acute Assessment and Plan: - Unclear etiology. - Possibly related to pulmonary issues. - ECHO ordered. - Currently asymptomatic. (7) Hypertension: Qualifiers: Hypertension type: essential hypertension Qualified Code(s): I10 - Essential (primary) hypertension Code(s): I10 - Essential (primary) hypertension Status: Chronic Assessment and Plan: - Fairly well controlled. - Continue Lisinopril. Plan Nutrition Aide and oncologist consulted. Time Spent With Patient Time with patient: 25 - 35 minutes Subjective Date/time seen: 11/29/23 13:15 Review of Systems Review of Systems: 12 systems were reviewed and are negative except for as per HPI. Exam Narrative: General: Well-developed, in no acute distress. HEENT: PERRL, EOMI. Sclera anicteric. Oral mucosa moist. Oropharynx clear. Neck: Supple. No JVD. Respiratory: Respirations are nonlabored, nearly absent lung sounds on the left. Right lung clear. Cardiovascular: Regular rate and rhythm with S1-S2. 2+ Apical murmur. Gastrointestinal: Abdomen is soft, nontender, and nondistended with positive bowel sounds. Skin: Warm and dry. No rash or lesions. Extremities: No cyanosis, clubbing, or edema. Lower legs are in waffle boots. Chronic right heel wound which healed up per her statements. Neurological: Alert. Cranial nerves II-XII are grossly intact. No gross focal deficits. Psychiatric: Pleasant and cooperative with normal mood and affect. Objective Data Vital Signs Vital Signs: Vital Signs - 24 hr 11/28/23 17:19 11/28/23 17:33 11/28/23 17:33 Temperature 97.8 F Pulse Rate 133 H 115 H Respiratory Rate 25 H Blood Pressure 104/60 Pulse Oximetry 91 93 Oxygen Delivery Room Air Room Air 11/28/23 18:43 11/28/23 22:00 11/29/23 00:00 Temperature 97.8 F Pulse Rate 71 78 70 Respiratory Rate 20 18 Bl
[2023-11-29 17:18] LABS: Thyroid Stimulating Hormone Reflex 0.824 uIU/mL (0.465-4.68)
[2023-11-29] MEDS: MONTELUKAST SODIUM 10 MG TABLET PO (20:33)
[2023-11-29] MEDS: MELATONIN 3 MG TABLET PO (20:33)
[2023-11-29] MEDS: guaiFENesin 200 MG/10 ML UDC PO (20:33)
[2023-11-30] VITALS (10 sets, daily range): BP systolic 133–154; BP diastolic 56–82; PULSE 65–753; RESP 16–18; TEMP 36.3–36.9; O2SAT 90–92
[2023-11-30] MEDS: LORATADINE 10 MG TABLET PO (09:24)
[2023-11-30] MEDS: lisinopriL 5 MG TABLET PO (09:24)
[2023-11-30] MEDS: POTASSIUM CHLORIDE 20 MEQ ER TABLET PO (09:24)
[2023-11-30] MEDS: FERROUS GLUCONATE 324 MG TABLET PO ×2 (09:24→16:56)
[2023-11-30] MEDS: CYANOCOBALAMIN 1,000 MCG TABLET 1000 MCG PO (09:24)
[2023-11-30] MEDS: CHOLECALCIFEROL 1,000 UNITS TABLET 1000 UNITS PO (09:24)
[2023-11-30] MEDS: FLUTICASONE PROPIONATE 0.05% NA SPR 16 GM BTL (*BKC) 1 SPRAY NASAL (09:24)
[2023-11-30] MEDS: GABAPENTIN 300 MG CAPSULE PO ×2 (09:24→16:56)
[2023-11-30] MEDS: ENOXAPARIN 40 MG/0.4 ML SYRINGE SUB-Q (09:24)
[2023-11-30] MEDS: PANTOPRAZOLE 40 MG TABLET PO (09:24)
[2023-11-30] MEDS: ASCORBIC ACID 500 MG TABLET PO (09:24)
--- NOTE | 2023-11-30 14:54 | PM.CNPUL ---
Assessment and Plan Assessment and plan (1) Mass of left lung: Code(s): R91.8 - Other nonspecific abnormal finding of lung field Status: Acute Assessment and Plan: This 87-year-old female has a known history of inoperable adenocarcinoma, diagnosed approximately four years ago, for which she received radiation treatment. The patient presented with shortness of breath, cough, and wheezing. Chest imaging studies, including a chest CT, revealed a collapse of the left upper lobe related to a left hilar mass with bronchial obstruction. Additionally, there are masses in the left lower lobe and a left pleural effusion. The patient's history, in conjunction with diagnostic imaging studies, suggests a relapse of lung cancer with lung collapse and pleural effusion. Given the size of the lung mass, the pleural effusion is most likely metastatic. The patient does not exhibit symptoms suggestive of pneumonia. A lengthy discussion was held with the patient regarding further management. Considering the extent of lung cancer with possible pleural metastasis and the patient's age, she is not a candidate for any treatment at this point, including diagnostic bronchoscopy, which would most likely confirm the cancer relapse. There is no evidence from the chest imaging studies indicating mucus plugging in the left upper lobe that would explain the lung collapse. The patient expressed no interest in undergoing any invasive diagnostic studies at this time to confirm the relapse of lung cancer. Currently, she appears to be tolerating the lung collapse and left pleural effusion without requiring supplemental oxygen, at least at rest. Her respiratory status needs to be monitored, and thoracentesis should be considered if the pleural effusion increases in size. An oncology evaluation by Dr. Reyez is pending. Continue with current nebulized short-acting bronchodilator regimen as prescribed. You may consider an oral antibiotic like Augmentin as she has some yellow phlegm probably related to acute bronchitis. MRSA screen pending. Will continue to follow the patient along with you. (2) Collapse of left lung: Code(s): J98.11 - Atelectasis Status: Acute (3) Chronic obstructive pulmonary disease: Code(s): J44.9 - Chronic obstructive pulmonary disease, unspecified Status: Acute (4) Pleural effusion: Code(s): J90 - Pleural effusion, not elsewhere classified Status: Acute History of Present Illness History of Present Illness Consult date: 11/30/23 Chief complaint: Shortness of breath, Left pleural effusion, Hx of Narrative: This 87-year-old female presented with a two-week history of shortness of breath, cough, and wheezing. She has a known history of non-small cell lung cancer with adenocarcinoma histology, diagnosed in late 2019. On initial evaluation, she was found to have T1N1M0 stage IIB medically inoperable adenocarcinoma, for which she was treated with radiation therapy completed in March 2020. She was not deemed an appropriate candidate for chemotherapy and has been followed by Dr. Reyez. The [facility] a [facility]. She was in her usual state of health until approximately two weeks ago when she began experiencing a cough producing minimal light yellow sputum, wheezing, and shortness of breath with activities. She also complained of generalized weakness but had no fever, chills, or hemoptysis. She reports a recent weight loss of approximately 4 pounds. Upon evaluation in the emergency room, the patient was found to have a mass in the left lung with associated collapse of the left upper lobe and pleural effusion. Currently, she is on room air. She has a history of COPD and uses a short-acting bronchodilator once daily. On the initial chest CT in 2019, she had a left hilar lymph node (station 11) positive for metastatic adenocarcinoma. A prior PET scan had shown a 1.8 cm mass with an SUV of 4.0 and a
--- NOTE | 2023-11-30 16:15 | PC.NURSE ---
RN spoke with respiratory therapist Varsha and Kandis in regards to 1400 treatment not being given. Therapists were tied up with ER respiratory needs. Varsha confirmed she would assess patient for 1400 scheduled duo-neb.
--- NOTE | 2023-11-30 16:44 | PCRCNOTE ---
Window of time for administration has passed. See next scheduled administration.
--- NOTE | 2023-11-30 16:51 | PM.IMPN ---
Progress Note: A&P Assessment and Plan (1) Acute hypoxic respiratory failure: Code(s): J96.01 - Acute respiratory failure with hypoxia Status: Acute Assessment and Plan: - Likely related to # 2 and # 3. - Currently good O2 sats on RA. - Claim Inspector and Oncologist consulted. - Supplemental O2 PRN for comfort and maintain sats > 90 %. - Singulair bedtime. - Further mgt pending pulmonary and oncology recommendations. (2) Mass of left lung: Code(s): R91.8 - Other nonspecific abnormal finding of lung field Status: Acute Assessment and Plan: CT Chest: Left hilar/perihilar mass 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 2. Multiple pulmonary nodules in the left lower lobe and right middle lobe consistent with metastatic disease. - Previously received radiation 06/18 on a left-upper lobe mass. - Claim Inspector and oncologist recommended. - Further mgt per oncologist and compliance manager recommendations. (3) Collapse of left lung: Code(s): J98.11 - Atelectasis Status: Acute Assessment and Plan: - Currently good O2 sats on RA. - No signs of cardiopulmonary distress currently. - Supportive care for now. (4) Pleural effusion: Code(s): J90 - Pleural effusion, not elsewhere classified Status: Acute Assessment and Plan: - Likely related to lung cancer. - Conservative mgt for now. - Consider thoracentesis if increase in size. (5) Chronic obstructive pulmonary disease: Code(s): J44.9 - Chronic obstructive pulmonary disease, unspecified Status: Acute Assessment and Plan: - Possibly with acute bronchitis with coughing of yellowish sputum. - Started on Augmentin. - Duonebs PRN. (6) Cardiac murmur: Code(s): R01.1 - Cardiac murmur, unspecified Status: Acute Assessment and Plan: - Unclear etiology. - Possibly pulmonary/malignancy related. - Patient asymptomatic. - Monitor for now. (7) Hypertension: Qualifiers: Hypertension type: essential hypertension Qualified Code(s): I10 - Essential (primary) hypertension Code(s): I10 - Essential (primary) hypertension Status: Chronic Assessment and Plan: - Well controlled. - Continue lisinopril. Time Spent With Patient Time with patient: 15 - 25 minutes Subjective Date/time seen: 11/30/23 16:51 Interval history: Patient admitted for SOB and CT chest showing Left hilar/perihilar mass 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 Claim Inspector and oncologist consulted for treatment recommendations. Patient currently on bedrest and denies any cardiopulmonary symptoms. Appears comfortable and in no acute distress. Reports very poor appetite today. Review of Systems Review of Systems: 12 systems were reviewed and are negative except for as per HPI. Exam Narrative: General: Well-developed, in no acute distress. HEENT: PERRL, EOMI. Sclera anicteric. Oral mucosa moist. Oropharynx clear. Neck: Supple. No JVD. Respiratory: Respirations are nonlabored, nearly absent lung sounds on the left. Right lung clear. Cardiovascular: Regular rate and rhythm with S1-S2. 2+ Apical murmur. Gastrointestinal: Abdomen is soft, nontender, and nondistended with positive bowel sounds. Skin: Warm and dry. No rash or lesions. Extremities: No cyanosis, clubbing, or edema. Lower legs are in waffle boots. Chronic right heel wound which healed up per her statements. Neurological: Alert. Cranial nerves II-XII are grossly intact. No gross focal deficits. Psychiatric: Pleasant and cooperative with normal mood and affect. Objective Data Vital Signs Vital Signs: Vital Signs - 24 hr 11/29/23 20:13 11/29/23 20:00 11/30/23 00:00 Temperature 98.7 F Pulse Rate 76 72 68 Resp
--- NOTE | 2023-11-30 18:05 | PDONCCN ---
HPI - Date of Consult Date/Time: 11/30/23 18:05 Requesting Physician: Carlin Ramos MD Primary Care Provider: PHYSICIAN NOT ON STAFF - Consult Narrative Reason for consult: Relapsed non-small cell lung cancer Narrative: Mercy Dobbs is a 87 year old female with diagnosis of T1 N1 M0 stage II B medically inoperable non-small cell lung cancer adenocarcinoma histology status post bronchoscopy and biopsy done in January 2020. Patient received definitive radiation therapy treatment in March of 2020. She was last seen in the office in April [address] scan done showed enlarging left upper lobe nodule and 2 small stable left upper lobe nodule. She was referred for radiation oncology consultation but did not received radiation therapy treatment at that time. She came into the hospital with complain of shortness of breath cough without any fevers and chills. CT chest showed left hilar perihilar mass concerning for primary bronchogenic carcinoma with bronchial obstruction and collapse of left upper lobe and lingula. Multiple pulmonary nodules in the left lower lobe and right middle lobe consistent with metastatic disease. Small to moderate left and very small right-sided pleural effusion. She denies any other complaints. Review of Systems - Review of Systems All systems reviewed & are unremarkable except as noted in [facility] and [facility] Medical History: Medical History (Last Reviewed 11/29/23 @ 15:43 by Justyna Long PA-C) Anxiety Arthritis of right glenohumeral joint Cardiomyopathy Cerebrovascular accident Chronic obstructive pulmonary disease COVID Eczema Hypertension Hypothyroidism Malignant neoplasm of upper lobe, left bronchus or lung Completed radiation therapy in 2020 Osteoarthritis Osteoporosis Parathyroid disorder Tobacco abuse Surgical History: Surgical History (Last Reviewed 11/29/23 @ 15:43 by Justyna Long PA-C) History of dilation and curettage Onset Date: 2008 History of left knee replacement Onset Date: 2009 History of removal of cyst From left axilla. Family History: Family History (Last Reviewed 11/29/23 @ 15:43 by Justyna Long PA-C) Sibling Family history of coronary artery disease Father Respiratory failure Mother Breast cancer Son Myositis ossificans progressiva Other Family history of arthritis Family history of cardiovascular disease Family history of chronic obstructive pulmonary disease Hypertension - Social History Social History: Social History (Last Reviewed 11/29/23 @ 15:43 by Justyna G Gerling, PA-C) Alcohol Use: Alcohol intake: current Drinks per week: 7 Substance Use: Substance use: never Substance use type: does not use Others: Spiritual care concerns: No Agree to blood products: Yes Living Arrangements: Living arrangements: [facility] Oppucation/Education: Occupation/Education: retired Smoking Status: Smoking status: Former smoker Tobacco type: cigarettes Smoking Pack-years: Smoking packs per day: 0.75 Smoking cigarettes per day: 15.0 Years smoked: 50 Smoking pack-years: 37.50 Social Determinants of Health: Do You Feel Safe in your Home?: Yes Has the Lack of Transportation Kept You From Medical Appointments or From Getting Medications?: No Within the Past 12 Months, Were You Worried Whether Your Food Would Run Out Before You Got Money to Buy More?: Never True What is Your Housing Situation Today?: I Have Housing Are You Worried That in the Next 2 Months, You May Not Have Your Own Housing to Live In?: No Do You Have Trouble Paying Your Heating Or Electricity Bill?: No Do You Have Trouble Paying For Medicines?: No Are You Currently Unemployed and Looking for Work?: No Highest Level of Education Completed: Grade School Do You Have Trouble With Childcare or the Care of a Family Member?: No
--- NOTE | 2023-11-30 18:35 | PC.NURSE ---
Patient off of unit to CT scan
[2023-11-30] MEDS: AMOXICILLIN/CLAVULANATE K 875-125 MG TAB 1 TABLET PO (20:07)
[2023-11-30] MEDS: MONTELUKAST SODIUM 10 MG TABLET PO (20:07)
[2023-11-30] MEDS: MELATONIN 3 MG TABLET PO (20:08)
[2023-11-30] MEDS: IPRATROPIUM 0.5 MG/ALBUTEROL SULFATE 2.5 MG AMPUL.NEB 3 ML INHALATION (20:14)
[2023-12-01] VITALS (18 sets, daily range): BP systolic 117–139; BP diastolic 58–65; PULSE 66–79; RESP 16–18; TEMP 36.7–36.8; O2SAT 91–98
[2023-12-01] MEDS: IPRATROPIUM 0.5 MG/ALBUTEROL SULFATE 2.5 MG AMPUL.NEB 3 ML INHALATION ×4 (02:06→20:15)
[2023-12-01 05:39] LABS: Potassium 4.1 mmol/L (3.4-5.0)
--- NOTE | 2023-12-01 07:24 | PM.IMPN ---
Progress Note: A&P Assessment and Plan (1) Acute hypoxic respiratory failure: Code(s): J96.01 - Acute respiratory failure with hypoxia Status: Acute (2) Mass of left lung: Code(s): R91.8 - Other nonspecific abnormal finding of lung field Status: Acute (3) Collapse of left lung: Code(s): J98.11 - Atelectasis Status: Acute (4) Pleural effusion: Code(s): J90 - Pleural effusion, not elsewhere classified Status: Acute (5) Chronic obstructive pulmonary disease: Code(s): J44.9 - Chronic obstructive pulmonary disease, unspecified Status: Acute (6) Cardiac murmur: Code(s): R01.1 - Cardiac murmur, unspecified Status: Acute (7) Hypertension: Qualifiers: Hypertension type: essential hypertension Qualified Code(s): I10 - Essential (primary) hypertension Code(s): I10 - Essential (primary) hypertension Status: Chronic Assessment and Plan: Plan Patient admitted for SOB and CT chest showing Left hilar/perihilar mass 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 Early Childhood Education Coordinator and oncologist consulted for treatment recommendations. Appears comfortable and in no acute distress. 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 2. Multiple pulmonary nodules in the left lower lobe and right middle lobe consistent with metastatic disease. - Previously received radiation 06/18 on a left-upper lobe mass. - Early Childhood Education Coordinator and oncologist recommended. - Further mgt per oncologist and medical office rep recommendations. - Currently good O2 sats on RA. - No signs of cardiopulmonary distress currently. - Supportive care for now. Pleural effusion - Likely related to lung cancer. - Conservative mgt for now. - Consider thoracentesis if increase in size. Acute respiratory failure - Likely related to # 2 and # 3. - Currently good O2 sats on RA. - Early Childhood Education Coordinator and Oncologist consulted. - Supplemental O2 PRN for comfort and maintain sats > 90 %. - Singulair bedtime. - Planning outpatient follow up with oncology. Pulmonary consulted and no intervention needed COPD - Possibly with acute bronchitis with coughing of yellowish sputum. Sputum clear today - Started on Augmentin 9/3, can stop. Monitor off antibiotics - Duonebs PRN. Cardiac Murmur. - Patient asymptomatic. - Follow up with PCP HTN--Continue lisinopril Time Spent With Patient Time: 39 minutes Subjective Date/time seen: 12/01/23 17:20 Interval history: Feeling ok. Mild constipation. Planning outpatient follow up with oncology Review of Systems Review of Systems: No shortness of breath or chest pain, no nausea Exam Narrative: General: Well-developed, in no acute distress. HEENT: PERRL, EOMI. Sclera anicteric. Oral mucosa moist. Oropharynx clear. Neck: Supple. No JVD. Respiratory: Respirations are nonlabored, nearly absent lung sounds on the left. Right lung clear. Cardiovascular: Regular rate and rhythm with S1-S2. 2+ Apical murmur. Gastrointestinal: Abdomen is soft, nontender, and nondistended with positive bowel sounds. Skin: Warm and dry. No rash or lesions. Extremities: No cyanosis, clubbing, or edema. Lower legs are in waffle boots. Neurological: Alert. Cranial nerves II-XII are grossly intact. No gross focal deficits. Psychiatric: Pleasant and cooperative with normal mood and affect. Objective Data Vital Signs Vital Signs: Vital Signs - 24 hr 11/30/23 09:24 11/30/23 08:00 11/30/23 12:00 Temperature Pulse Rate 65 753 H Respiratory Rate Blood Pressure Pulse Oximetry Oxygen Delivery Room Air 11/30/23 14:00 11/30/23 16:00 11/30/23 20:11 [place]
[2023-12-01] MEDS: GABAPENTIN 300 MG CAPSULE PO ×3 (09:05→17:35)
[2023-12-01] MEDS: AMOXICILLIN/CLAVULANATE K 875-125 MG TAB 1 TABLET PO ×2 (09:05→20:07)
[2023-12-01] MEDS: ASCORBIC ACID 500 MG TABLET PO (09:05)
[2023-12-01] MEDS: PANTOPRAZOLE 40 MG TABLET PO (09:05)
[2023-12-01] MEDS: POTASSIUM CHLORIDE 20 MEQ ER TABLET PO (09:05)
[2023-12-01] MEDS: FLUTICASONE PROPIONATE 0.05% NA SPR 16 GM BTL (*BKC) 1 SPRAY NASAL (09:06)
[2023-12-01] MEDS: LORATADINE 10 MG TABLET PO (09:06)
[2023-12-01] MEDS: FERROUS GLUCONATE 324 MG TABLET PO ×3 (09:06→17:35)
[2023-12-01] MEDS: CYANOCOBALAMIN 1,000 MCG TABLET 1000 MCG PO (09:06)
[2023-12-01] MEDS: CHOLECALCIFEROL 1,000 UNITS TABLET 1000 UNITS PO (09:06)
[2023-12-01] MEDS: lisinopriL 5 MG TABLET PO (09:06)
[2023-12-01] MEDS: ENOXAPARIN 40 MG/0.4 ML SYRINGE SUB-Q (09:07)
--- NOTE | 2023-12-01 12:43 | PM.PNPUL ---
Progress Note: A&P Assessment and Plan (1) Lung cancer, primary, with metastasis from lung to other site: Code(s): C34.90 - Malignant neoplasm of unspecified part of unspecified bronchus or lung Status: Acute Assessment and Plan: This 87-year-old female has a known history of inoperable adenocarcinoma, diagnosed approximately four years ago, for which she received radiation treatment. The patient presented with shortness of breath, cough, and wheezing. Chest imaging studies, including a chest CT, revealed a collapse of the left upper lobe related to a left hilar mass with bronchial obstruction. Additionally, there are masses in the left lower lobe and a left pleural effusion. The patient's history, in conjunction with diagnostic imaging studies, suggests a relapse of lung cancer with lung collapse and pleural effusion. Given the size of the lung mass, the pleural effusion is most likely metastatic. The patient does not exhibit symptoms suggestive of pneumonia. The patient stated that she and her [id number] will have a meeting with her oncologist regarding further treatment of her relapsed cancer. She may consider comfort measures instead of chemotherapy, but that decision will be made after consulting with her oncologist. Will sign off. Please call with any questions. (2) Atrial flutter: Code(s): I48.92 - Unspecified atrial flutter Status: Acute (3) Cardiac murmur: Code(s): R01.1 - Cardiac murmur, unspecified Status: Acute (4) Mass of left lung: Code(s): R91.8 - Other nonspecific abnormal finding of lung field Status: Acute (5) Collapse of left lung: Code(s): J98.11 - Atelectasis Status: Acute (6) Chronic obstructive pulmonary disease: Code(s): J44.9 - Chronic obstructive pulmonary disease, unspecified Status: Acute (7) Pleural effusion: Code(s): J90 - Pleural effusion, not elsewhere classified Status: Acute Subjective Date/time seen: 12/01/23 12:43 Interval history: Patient has no new respiratory symptoms. She remains essentially bedridden. Still on room air. Was evaluated by Dr. Reyez. Review of Systems Review of Systems: All systems reviewed & are unremarkable except as noted in HPI and below (HPI and below) Exam Narrative: GENERAL APPEARANCE: Well developed, well nourished, alert and cooperative, appears to be in no respiratory distress while breathing room air SKIN: Inspection of the skin reveals no rashes, ulcerations or petechiae. HEENT: Sclerae anicteric and conjunctivae pink and moist. Extraocular movements were intact and pupils were equal, round, and reactive to light. The oral mucosa, hard and soft palate, tongue and posterior pharynx were normal. NECK: Supple. There was no thyroid enlargement, and no tenderness, or masses were felt. CHEST: kyphoscoliosis. LUNGS: Decreased breath sounds left upper chest anteriorly and left lung base posteriorly. Clear breath sounds on right no wheezing CARDIAC: There was a regular rate and rhythm, 3/6 systolic ejection murmur at apex. ABDOMEN: Soft and nontender with normal bowel sounds. There was no organomegaly. LYMPH NODES: No lymphadenopathy was appreciated in the neck. EXTREMITIES: No cyanosis, clubbing or edema. NEUROLOGIC: Alert and oriented x 3. Normal affect. Objective Data Vital Signs Vital Signs: Vital Signs - 24 hr 11/30/23 14:00 11/30/23 16:00 11/30/23 20:11 Temperature 36.3 C L 36.3 C L Pulse Rate 78 75 78 Respiratory Rate 18 17 Blood Pressure 133/56 L 141/57 H Pulse Oximetry 92 92 Oxygen Delivery 11/30/23 20:17 11/30/23 20:17 11/30/23 20:00 Temperature Pulse Rate 76 86 Respiratory Rate 17 Blood Pressure Pulse Oximetry 90 Oxygen Delivery Room Air 11/30/23 20:00 12/01/23 02:08 11/30/23 20:25 Temperature Pulse Rate 67 78 Respiratory Rate 17 17 Blood Pressure Pulse Oximetry Oxygen Delivery R
[2023-12-01] MEDS: SENNA/DOCUSATE SODIUM TABLET 1 TAB PO (20:07)
[2023-12-01] MEDS: MONTELUKAST SODIUM 10 MG TABLET PO (20:07)
[2023-12-01] MEDS: MELATONIN 3 MG TABLET PO (20:07)
[2023-12-02] VITALS (14 sets, daily range): BP systolic 117–131; BP diastolic 67–76; PULSE 71–114; RESP 17–20; TEMP 36.1–36.9; O2SAT 92–96
[2023-12-02] MEDS: ACETAMINOPHEN 325 MG TABLET 650 MG PO (01:57)
[2023-12-02] MEDS: IPRATROPIUM 0.5 MG/ALBUTEROL SULFATE 2.5 MG AMPUL.NEB 3 ML INHALATION ×3 (01:58→13:38)
[2023-12-02] MEDS: POTASSIUM CHLORIDE 20 MEQ ER TABLET PO (08:28)
[2023-12-02] MEDS: FERROUS GLUCONATE 324 MG TABLET PO ×2 (08:28→13:39)
[2023-12-02] MEDS: LORATADINE 10 MG TABLET PO (08:28)
[2023-12-02] MEDS: GABAPENTIN 300 MG CAPSULE PO ×2 (08:28→13:39)
[2023-12-02] MEDS: lisinopriL 5 MG TABLET PO (08:28)
[2023-12-02] MEDS: PANTOPRAZOLE 40 MG TABLET PO (08:28)
[2023-12-02] MEDS: CYANOCOBALAMIN 1,000 MCG TABLET 1000 MCG PO (08:28)
[2023-12-02] MEDS: CHOLECALCIFEROL 1,000 UNITS TABLET 1000 UNITS PO (08:28)
[2023-12-02] MEDS: ASCORBIC ACID 500 MG TABLET PO (08:28)
[2023-12-02] MEDS: ENOXAPARIN 40 MG/0.4 ML SYRINGE SUB-Q (08:28)
[2023-12-02] MEDS: ACETAMINOPHEN 500 MG TABLET 1000 MG PO (08:28)
[2023-12-02] MEDS: FLUTICASONE PROPIONATE 0.05% NA SPR 16 GM BTL (*BKC) 1 SPRAY NASAL (08:29)
--- NOTE | 2023-12-02 10:21 | PM.IMPN ---
Progress Note: A&P Assessment and Plan (1) Acute hypoxic respiratory failure: Code(s): J96.01 - Acute respiratory failure with hypoxia Status: Acute (2) Mass of left lung: Code(s): R91.8 - Other nonspecific abnormal finding of lung field Status: Acute (3) Collapse of left lung: Code(s): J98.11 - Atelectasis Status: Acute (4) Pleural effusion: Code(s): J90 - Pleural effusion, not elsewhere classified Status: Acute (5) Chronic obstructive pulmonary disease: Code(s): J44.9 - Chronic obstructive pulmonary disease, unspecified Status: Acute (6) Cardiac murmur: Code(s): R01.1 - Cardiac murmur, unspecified Status: Acute (7) Hypertension: Qualifiers: Hypertension type: essential hypertension Qualified Code(s): I10 - Essential (primary) hypertension Code(s): I10 - Essential (primary) hypertension Status: Chronic Assessment and Plan: Plan Patient admitted for SOB and CT chest showing Left hilar/perihilar mass 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 Counselor Nurses' Association and oncologist consulted for treatment recommendations. Appears comfortable and in no acute distress. 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 2. Multiple pulmonary nodules in the left lower lobe and right middle lobe consistent with metastatic disease. - Previously received radiation 06/18 on a left-upper lobe mass. - Counselor Nurses' Association and oncologist recommended. - Further mgt per oncologist and veterinary surgery technician recommendations. - Currently good O2 sats on RA. - No signs of cardiopulmonary distress currently. - Supportive care for now. Pleural effusion - Likely related to lung cancer. - Conservative mgt for now. - Consider thoracentesis if increase in size. Acute respiratory failure - Likely related to # 2 and # 3. - Currently good O2 sats on RA. - Counselor Nurses' Association and Oncologist consulted. - Supplemental O2 PRN for comfort and maintain sats > 90 %. - Singulair bedtime. - Planning outpatient follow up with oncology. Pulmonary consulted and no intervention needed COPD - Possibly with acute bronchitis with coughing of yellowish sputum. Sputum clear today - Started on Augmentin 9/3, can stop. Monitor off antibiotics - Duonebs PRN. Cardiac Murmur. - Patient asymptomatic. - Follow up with PCP HTN--Continue lisinopril Time Spent With Patient Time with patient: Greater than 35 minutes Subjective Date/time seen: 12/02/23 10:21 Interval history: 12/01- assuming care. pt is seen and examined Review of Systems Review of Systems: No shortness of breath or chest pain, no nausea Exam Narrative: General: Well-developed, in no acute distress. HEENT: PERRL, EOMI. Sclera anicteric. Oral mucosa moist. Oropharynx clear. Neck: Supple. No JVD. Respiratory: Respirations are nonlabored, nearly absent lung sounds on the left. Right lung clear. Cardiovascular: Regular rate and rhythm with S1-S2. 2+ Apical murmur. Gastrointestinal: Abdomen is soft, nontender, and nondistended with positive bowel sounds. Skin: Warm and dry. No rash or lesions. Extremities: No cyanosis, clubbing, or edema. Lower legs are in waffle boots. Neurological: Alert. Cranial nerves II-XII are grossly intact. No gross focal deficits. Psychiatric: Pleasant and cooperative with normal mood and affect. Objective Data Vital Signs Vital Signs: Vital Signs - 24 hr 12/01/23 13:13 12/01/23 13:21 12/01/23 12:05 Temperature Pulse Rate 77 76 72 Respiratory Rate 18 18 Blood Pressure Pulse Oximetry Oxygen Delivery 12/01/23 14:00 12/01/23 16:05 12/01/23 19:54 Temperature 98.2
--- NOTE | 2023-12-02 12:47 | PM.DS ---
DS: Admitting Diagnosis Discharge Date 12/01 Admitting Diagnosis sob DS: Discharge Diagnosis Discharge Diagnosis (1) Acute hypoxic respiratory failure: Code(s): J96.01 - Acute respiratory failure with hypoxia Status: Acute (2) Mass of left lung: Code(s): R91.8 - Other nonspecific abnormal finding of lung field Status: Acute (3) Collapse of left lung: Code(s): J98.11 - Atelectasis Status: Acute (4) Pleural effusion: Code(s): J90 - Pleural effusion, not elsewhere classified Status: Acute (5) Chronic obstructive pulmonary disease: Code(s): J44.9 - Chronic obstructive pulmonary disease, unspecified Status: Acute (6) Cardiac murmur: Code(s): R01.1 - Cardiac murmur, unspecified Status: Acute (7) Hypertension: Qualifiers: Hypertension type: essential hypertension Qualified Code(s): I10 - Essential (primary) hypertension Code(s): I10 - Essential (primary) hypertension Status: Chronic Assessment and Plan: Plan Patient admitted for SOB and CT chest showing Left hilar/perihilar mass 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 Reservation Manager and oncologist consulted for treatment recommendations. Appears comfortable and in no acute distress. 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 2. Multiple pulmonary nodules in the left lower lobe and right middle lobe consistent with metastatic disease. - Previously received radiation 06/18 on a left-upper lobe mass. - Reservation Manager and oncologist recommended. - Further mgt per oncologist and it systems analyst recommendations. - Currently good O2 sats on RA. - No signs of cardiopulmonary distress currently. - Supportive care for now. Pleural effusion - Likely related to lung cancer. - Conservative mgt for now. - Consider thoracentesis if increase in size. Acute respiratory failure - Likely related to # 2 and # 3. - Currently good O2 sats on RA. - Reservation Manager and Oncologist consulted. - Supplemental O2 PRN for comfort and maintain sats > 90 %. - Singulair bedtime. - Planning outpatient follow up with oncology. Pulmonary consulted and no intervention needed COPD - Possibly with acute bronchitis with coughing of yellowish sputum. Sputum clear today - Started on Augmentin 11/29, can stop. Monitor off antibiotics - Duonebs PRN. Cardiac Murmur. - Patient asymptomatic. 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 Reservation Manager and oncologist consulted for treatment recommendations. Patient currently on bedrest and denies any cardiopulmonary symptoms. Appears comfortable and in no acute distress. Reports very poor appetite. 12/01 assuming care- pt is resting with eyes closed- alert, denies any pain. will f/u with oncology as an oupt. Status at Discharge Functional status at discharge: wheelchair bound Overall status at discharge: patient is back to baseline Time Spent with Patient Time attestation: Total time spent providing and/or coordinating discharge services: Time spent: Greater than 30 minutes Exam Narrative: General: Well-developed, in no acute distress. HEENT: PERRL, EOMI. Sclera anicteric. Oral mucosa moist. Oropharynx clear. Neck: Supple. No JVD. Respiratory: Respirations are nonlabored, nearly absent lung sounds on the left. Right lung clear. Cardiovascular: Regular rate and rhythm with S1-S2. 2+ Apical murmur. Gastrointestinal:
--- NOTE | 2023-12-02 13:25 | PCPTNOTE ---
attempted PT eval, pt states she does not need physical therapy and she is leaving the hospital soon, pt states she either uses a device to get into her W/C or gets assistance into the W/C, D/C-ing orders as pt does not want physical therapy
== END 2023-12-02 17:20 | DRG 205 ==
LOC: ANHED 19:22 → ANH3MED 20:32
PROVIDERS: Emergency Medicine; Nurse Practitioner Adult Health; Physician Assistant; Admitting Provider Internal Medicine; Emergency Provider Emergency Medicine; Visit Provider Nurse Practitioner
DX: J98.11 Atelectasis (principal); J96.01 Acute respiratory failure with hypoxia; C34.90 Malignant neoplasm of unspecified part of unspecified bronchus or lung; C79.9 Secondary malignant neoplasm of unspecified site; J91.8 Pleural effusion in other conditions classified elsewhere; I48.92 Unspecified atrial flutter; E03.9 Hypothyroidism, unspecified; I11.9 Hypertensive heart disease without heart failure; J43.9 Emphysema, unspecified; R01.1 Cardiac murmur, unspecified; Z86.73 Personal history of transient ischemic attack (TIA), and cerebral infarction without residual deficits; Z86.16 Personal history of COVID-19; Z96.652 Presence of left artificial knee joint; Z87.891 Personal history of nicotine dependence
CPT/HCPCS: 36415; 71046; 71250; 74176; 80048; 80053; 83690; 83735; 84132; 84443; 84484; 85025; 85027; 85610; 85730; 93005; 93306; 94640; 99285; A9270; J1650